=== PATIENT | female | born 1990 | race Hispanic/Latino ===

== ENCOUNTER 2017-09-13 14:02 | Inpatient (IN) | payer SELFPAY ==
[2017-09-13] MEDS ORDERED: NA CHLORIDE 0.9% 1,000 ML ONE ×3 (15:19→18:16)
[2017-09-13] MEDS ORDERED: ONDANSETRON 4 MG/2 ML VIAL ONE ×2 (15:19→18:30)
[2017-09-13] MEDS ORDERED: FAMOTIDINE 20 MG/2 ML VIAL IV ONE (15:19)
[2017-09-13 15:25] LABS: Urine Bacteria <20 /HPF (<20); Urine RBC <5 /HPF (NONE SEEN)
[2017-09-13 15:26] LABS: Urine Culture Reflex Order NOT NEEDED
[2017-09-13 16:42] LABS: Absolute Lymphocytes (CBC) 1.2 K/uL (0.7-4.9); Absolute Monocytes 1.1 K/uL (0.1-1.3); Absolute Neutrophil 11.1 K/uL (1.8-8.0); Basophils % 0.6 % (0-1.3); Hematocrit 40.1 % (36.0-45.0); Lymphocytes % 8.7 % (15.3-44.8); MCH 29.4 pg (27.0-35.0); MCV 92.8 fL (80-100); MPV 9.3 fL (7.6-11.3); Monocytes % 8.1 % (3.3-12.3); RBC Red Blood Cell Count 4.33 M/uL (3.86-4.86)
[2017-09-13 16:53] LABS: Lipase 24 U/L (22-51)
[2017-09-13 16:55] LABS: Glucose Level 614 mg/dL (65-120); Potassium 5.2 mEq/L (3.6-5.0); Sodium Level 125 mEq/L (135-145)
[2017-09-13 16:59] LABS: ALT/SGPT 28 IU/L (10-60); AST/SGOT 27 IU/L (10-42); Albumin 3.4 g/dL (3.2-5.5); Alkaline Phosphatase 92 IU/L (42-121); Amylase Level 52 U/L (28-100); BUN Blood Urea Nitrogen 20 mg/dL (6-20); Bilirubin Direct 0.1 mg/dL (0-0.2); Bilirubin Total 2.2 mg/dL (0.3-1.2); Protein, Total 7.2 g/dL (6.0-8.3)
[2017-09-13 17:03] LABS: Bicarbonate 8 mEq/L (21-31)
[2017-09-13] MEDS ORDERED: INSULIN -REGULAR HUMAN 50 UNIT/0.5 ML ML ONE (17:21)
[2017-09-13 17:22] LABS: Urine Blood NEGATIVE (NEG); Urine Glucose 2+ (NEG); Urine Protein NEGATIVE (NEG)
[2017-09-13 17:38] LABS: Arterial Blood Carboxyhemoglob 0.8 % (0-1.5); Blood Gas Oxyhemoglobin 94.7 % (94-97); Blood O2 Saturation 96.6 % (92-98.5)
[2017-09-13] MEDS ORDERED: INSULIN -REGULAR HUMAN 100 UNIT in NA CHLORIDE 0.9% 100 ML IV SCH (18:00)
[2017-09-13] MEDS ORDERED: Morphine 2 MG/2 ML SYR ONE (18:16)
--- NOTE | 2017-09-13 18:20 | RAD REPORT ---
EXAM DESCRIPTION: Shaina Single View09/13/2017 6:05 pm CLINICAL HISTORY: Chest pain COMPARISON: July 2016 FINDINGS: The lungs appear clear of acute infiltrate. The heart is normal size IMPRESSION: No acute abnormalities displayed
[2017-09-13] MEDS ORDERED: ONDANSETRON 4 MG/2 ML VIAL IV PRN (18:23)
[2017-09-13] MEDS ORDERED: NA CHLORIDE 0.9% 1,000 ML IV ONE (18:23)
--- NOTE | 2017-09-13 18:58 | EDPHYS ---
Physician Documentation [facility] Name: Kristan Townsend Age: 27 yrs Sex: Female : 1990 Arrival Date: 09/13/2017 Time: 14:06 Bed External Waiting Private MD: Kyle Welch ED Physician Gerson Rosa HPI: 09/13 15:10 This 27 yrs old Female presents to ER via Ambulatory with complaints of cp Vomiting, Shortness Of Breath. 15:10 The patient presents to the emergency department with vomiting, that is intermittent, cp described as bilious. Onset: The symptoms/episode began/occurred this morning. 15:10 Possible causes: elevated blood glucose. cp 15:10 Associated signs and symptoms: Pertinent positives: abdominal pain, nausea, vomiting, cp Pertinent negatives: constipation, diarrhea, dysuria, fever, GI bleeding, active vomiting. 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 - Social history:: Smoking status: Patient/guardian denies using tobacco. - Ebola Screening: : Patient negative for fever greater than or equal to 101.5 degrees Fahrenheit, and additional compatible Ebola Virus Disease symptoms Patient denies exposure to infectious person Patient denies travel to an Ebola-affected area in the 21 days before illness onset No symptoms or risks identified at this time. ROS: 15:15 Constitutional: Negative for body aches, chills, fever, poor PO intake. cp 15:15 Eyes: Negative for injury, pain, redness, and discharge. cp 15:15 ENT: Negative for drainage from ear(s), ear pain, sore throat, difficulty swallowing, difficulty handling secretions. Exam: 15:22 Constitutional: The patient appears in no acute distress, alert, awake, cp non-diaphoretic, non-toxic, well developed, well nourished. 15:22 Head/Face: Normocephalic, atraumatic. Eyes: Pupils equal round and reactive to light, cp extra-ocular motions intact. Lids and lashes normal. Conjunctiva and sclera are non-icteric and not injected. Cornea within normal limits. Periorbital areas with no swelling, redness, or edema. ENT: Nares patent. No nasal discharge, no septal abnormalities noted. Tympanic membranes are normal and external auditory canals are clear. Oropharynx with no redness, swelling, or masses, exudates, or evidence of obstruction, uvula midline. Mucous membranes moist. Neck: Trachea midline, no thyromegaly or masses palpated, and no cervical lymphadenopathy. Supple, full range of motion without nuchal rigidity, or vertebral point tenderness. No Meningismus. 15:22 Chest/axilla: Inspection: normal, Palpation: is normal, no crepitus, no tenderness. 15:22 Cardiovascular: Rate: tachycardic, Rhythm: regular, Pulses: Pulses are 2+ in right radial artery and left radial artery. Edema: is not appreciated, JVD: is not appreciated. 15:22 Respiratory: the patient does not display signs of respiratory distress, Respirations: normal, no use of accessory muscles, no retractions, no splinting, no tachypnea, labored breathing, is not present, Breath sounds: are clear throughout, no decreased breath sounds, no stridor, no wheezing. 15:22 Abdomen/GI: Inspection: abdomen appears normal, Bowel sounds: active, all quadrants, Palpation: soft, in all quadrants, mild abdominal tenderness, in the epigastric area, rebound tenderness, is not appreciated, voluntary guarding, is elicited in the epigastric area, involuntary guarding, is not appreciated. 15:22 Back: pain, is absent, ROM is normal, CVA tenderness, is absent. 15:22 Skin: cellulitis, is not appreciated, no rash present. 15:22 Neuro: Orientation: to person, place \T\ time. Mentation: lucid, able to follow commands, Cerebellar function: is grossly normal, Motor: moves all fours, strength is normal, Sensation: is normal. 15:28 ECG was reviewed by the Attending Physician. Vital Signs: 14:44 BP 122 / 65; Pulse 118; Resp 20; Temp 98.1; Pulse Ox 100% on R/A; Weight 61.23 kg; aj Height 5 ft. 4 in. (162.56 cm); 17:38 BP 123 / 63; Pulse 120; Resp 19 S; Pulse Ox 100% on R/A; Pain 6/10; sg 18:20 BP 121 / 70; Pulse 110; Resp 17 S; Pulse Ox 99% on R/A; Pain 6/10; sg 19:56 BP 118 / 70; Pulse 115; Resp 21; Pulse Ox 100% ; rv 20:35 BP 118 / 74; Pulse 119; Resp 18; Pulse Ox 100% on R/A; Pain 0/10; ao 14:44 Body Mass Index 23.17 (61.23 kg, 162.56 cm) aj MDM: 14:52 Patient medically screened. cp 18:05 Data reviewed: vital signs, nurses notes, lab test result(s), EKG. cp 18:05 Response to treatment: the patient's symptoms have mildly improved after treatment. cp 09/13 15:12 Order name: Amylase, Serum; Complete Time: 17:13 cp 09/13 15:12 Order name: Basic Metabolic Panel; Complete Time: 17:13 cp 09/13 17:43 Interpretation: Normal except: CRE 1.06; GFR 63; NA 125; K 5.2; CL 94; CO2 8; GLUC 614. cp 09/13 15:12 Order name: CBC with Diff; Complete Time: 17:13 cp 09/13 17:24 Interpretation: Normal except: WBC 13.5; MCV 92.8; MCHC 31.7; KEVIN% 82.6; LYM% 8.7; NEUT cp A 11.1. 09/13 15:12 Order name: Hepatic Function; Complete Time: 17:13 cp 09/13 17:24 Interpretation: Normal except: BILIT 2.2; GLOB 3.8; A/G 0.9. cp 06/ 15:12 Order name: Lipase; Complete Time: 17:13 cp 09/13 15:12 Order name: Urine Microscopic Only; Complete Time: 17:13 cp 09/13 15:13 Order name: Ketone, Serum; Complete Time: 17:13 cp 09/13 15:13 Order name: Magnesium; Complete Time: 17:13 cp 09/13 15:21 Order name: Urine Dipstick--Ancillary (enter results); Complete Time: 17:23 bd 09/13 17:24 Interpretation: UGLUC 2+; UKET 4+. cp / 15:21 Order name: Urine --Ancillary (enter results); Complete Time: 17:23 bd 09/13 17:17 Order name: ABG; Complete Time: 18:03 cp 09/13 18:03 Interpretation: Normal except: ABGPH 7.15; ABGPCO2 18.9; ABGPO2 124.0; ABGHCO3 6.3. cp 09/13 18:26 Order name: Basic Metabolic Panel EDMS 09/13 17:27 Order name: XRAY Chest (1 view); Complete Time: 18:57 cp 09/13 18:57 Interpretation: Report review. cp 09/13 18:26 Order name: Basic Metabolic Panel EDMS 09/13 18:26 Order name: Basic Metabolic Panel EDMS 09/13 18:26 Order name: CBC with Automated Diff EDMS 09/13 18:26 Order name: CBC with Automated Diff EDMS 09/13 18:27 Order name: Osmolality, Serum EDMS 09/13 18:27 Order name: ABG Arterial Blood Gas EDMS 09/13 18:27 Order name: ABG Arterial Blood Gas EDMS 09/13 18:27 Order name: CBC with Automated Diff EDMS 09/13 18:27 Order name: CBC with Automated Diff EDMS 09/13 20:16 Order name: Glucose, Ancillary Testing EDMS 09/13 20:16 Order name: Glucose, Ancillary Testing EDMS 09/13 15:12 Order name: EKG; Complete Time: 15:12 cp 09/13 15:12 Order name: EKG - Nurse/Tech; Complete Time: 19:07 cp 09/13 15:12 Order name: Urine Test (obtain specimen); Complete Time: 15:18 cp 09/13 15:12 Order name: IV Saline Lock; Complete Time: 16:36 cp 09/13 15:12 Order name: Labs collected and sent; Complete Time: 15:19 cp 09/13 15:12 Order name: Urine Dipstick-Ancillary (obtain specimen); Complete Time: 15:19 cp 09/13 18:26 Order name: CONS Diabetic Education Consul EDMS 09/13 18:26 Order name: CONS Pharmacy Consult EDMS 09/13 18:26 Order name: NPO EDMS EC:28 Rate is 106 beats/min. Rhythm is regular. NV interval is normal. QRS interval is cp normal. QT interval is normal. No ST changes noted. Interpreted by me. Reviewed by me. Administered Medications: 16:10 Drug: Pepcid 20 mg Route: IVP; Site: right jugular; sg 16:10 Drug: Zofran 4 mg Route: IVP; Site: right jugular; sg 16:36 Drug: NS 0.9% 1000 ml Route: IV; Rate: 1 bolus; Site: right jugular; sg 17:29 Drug: Insulin Regular Human 10 units {Co-Signature: francisco javier (Dian Samuel RN).} Route: sg IVP; Site: right jugular; 18:00 Follow up: Response: No adverse reaction sg 17:29 Drug: NS 0.9% 1000 ml Route: IV; Rate: 1 bolus; Site: right jugular; sg 21:48 Follow up: IV Status: Infusion continued upon admission ao 18:23 Drug: morphine 2 mg Route: IVP; Site: right jugular; sg 19:00 Follow up: Response: No adverse reaction; Pain is decreased sg 18:30 Drug: NS 0.9% 1000 ml Route: IV; Rate: 150 ml/hr; Site: right jugular; sg 21:49 Follow up: IV Status: Infusion continued upon admission ao 18:45 Drug: Insulin Drip - (Insulin Regular Human 100 units, NS 0.9% 100 ml) {Co-Signature: delores mcintyre (Dian Samuel RN).} Route: IV; Rate: 6 units/hr; Site: right jugular; 21:50 Follow up: IV Status: Infusion continued upon admission ao Point of Care Testing: Blood Glucose: 14:44 Blood Glucose: 481 mg/dL; aj 18:30 Blood Glucose: 477 mg/dL; sg 20:15 Blood Glucose: 406 mg/dL; rv Ranges: Critical Glucose Levels:Adult <50 mg/dl or >400 mg/dl <40 mg/dl or >180 mg/dl Disposition: 09/13/17 18:57 Hospitalization ordered by Jaylyn Pagan for Inpatient Admission. Preliminary diagnosis is Type 1 diabetes mellitus with ketoacidosis. - Bed requested for Intensive Care Unit. - Status is Inpatient Admission. ao - Condition is Guarded. - Problem is an acute exacerbation. - Symptoms have improved. UTI on Admission? No Addendum: 09/15/2017 13:28 Co-signature as Attending Physician, Gerson Rosa MD. g s Signatures: Dispatcher [employer] [facility] Enma Thompson RN Ernesto Washington RN RN sg Myers, Amanda, RN RN aj Page, Corey, PA PA cp Issa Reese, RN Gerson Loya MD MD Dian Samuel RN sv Corrections: (The following items were deleted from the chart) 09/13 17:23 15:13 Creatinine for Radiology+C.LAB.BRZ ordered. [facility] 17:43 17:24 Normal except: CRE 1.06; GFR 63; NA 125; K 5.2; CL 94; CO2 8. [facility] 18:32 18:26 Basic Metabolic Panel ordered. [facility] 18:32 18:27 Test Serum, Qual[place] ordered. [facility] 19:23 18:57 Hospitalization Ordered by Jaylyn Pagan MD for Inpatient Admission. Preliminary diagnosis is Type 1 diabetes mellitus with ketoacidosis. Bed requested for Intensive Care Unit. Status is Inpatient Admission. Condition is Guarded. Problem is an acute exacerbation. Symptoms have improved. UTI on Admission? No. cp 19:26 19:23 09/13/2017 18:57 Hospitalization Ordered by Jaylyn Pagan MD for Inpatient kl Admission. Preliminary diagnosis is Type 1 diabetes mellitus with ketoacidosis. Bed requested for Intensive Care Unit. Status is Inpatient Admission. Condition is Guarded. Problem is an acute exacerbation. Symptoms have improved. UTI on Admission? No. kl 21:48 19:26 09/13/2017 18:57 Hospitalization Ordered by Jaylyn Pagan MD for Inpatient ao Admission. Preliminary diagnosis is Type 1 diabetes mellitus with ketoacidosis. Bed requested for Intensive Care Unit. Status is Inpatient Admission. Condition is Guarded. Problem is an acute exacerbation. Symptoms have improved. UTI on Admission? No. kl
--- NOTE | 2017-09-13 18:58 | ER ---
Nurse's Notes [facility] Name: Kristan Townsend Age: 27 yrs Sex: Female : 1990 Arrival Date: 09/13/2017 Time: 14:06 Bed External Waiting Private MD: Kyle Welch Diagnosis: Type 1 diabetes mellitus with ketoacidosis Presentation: 09/13 14:43 Presenting complaint: Patient states: Vomiting x 2 episodes with fatigue and SOB. aj Patient reports heartburn. Transition of care: patient was not received from another setting of care. Onset of symptoms was September 13, 2017. Risk Assessment: Do you want to hurt yourself or someone else? Patient reports no desire to harm self or others. Care prior to arrival: None. 14:43 Method Of Arrival: Ambulatory aj 14:43 Acuity: ALEX 3 aj 19:19 Initial Sepsis Screen: Does the patient meet any 2 criteria? HR > 90 bpm. No. Patient's ao initial sepsis screen is negative. Does the patient have a suspected source of infection? No. Patient's initial sepsis screen is negative. Triage Assessment: 14:44 General: Appears in no apparent distress. comfortable, Behavior is calm, cooperative, aj appropriate for age. Pain: Denies pain. Neuro: Level of Consciousness is awake, alert, obeys commands, Oriented to person, place, time, situation, Appropriate for age. Respiratory: Airway is patent Respiratory effort is even, unlabored, Respiratory pattern is regular, symmetrical. GI: Reports indigestion, nausea, vomiting. Derm: Skin is intact, is healthy with good turgor, Skin is pink, warm \T\ dry. normal. 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 - Social history:: Smoking status: Patient/guardian denies using tobacco. - Ebola Screening: : Patient negative for fever greater than or equal to 101.5 degrees Fahrenheit, and additional compatible Ebola Virus Disease symptoms Patient denies exposure to infectious person Patient denies travel to an Ebola-affected area in the 21 days before illness onset No symptoms or risks identified at this time. Screenin:10 Abuse screen: Denies threats or abuse. Denies injuries from another. Nutritional sg screening: No deficits noted. Tuberculosis screening: No symptoms or risk factors identified. Never had TB. Fall Risk None identified. Assessment: 15:10 General: Appears in no apparent distress. comfortable, slender, well groomed, well sg developed, well nourished, Behavior is calm, cooperative, appropriate for age. Pain: Complains of pain in epigastric area Pain does not radiate. Quality of pain is described as sharp, stabbing. Neuro: Level of Consciousness is Oriented to person, place, time, Modern Dancer are equal bilaterally Speech is normal, Facial symmetry appears normal. Cardiovascular: Heart tones S1 S2 present Capillary refill is brisk in bilateral fingers Patient's skin is warm and dry. Chest pain is denied. Respiratory: Airway is patent Respiratory effort is even, unlabored, Respiratory pattern is regular, symmetrical, Breath sounds are clear. GI: Abdomen is round non-distended, Bowel sounds Abd is soft X 4 quads. : No signs and/or symptoms were reported regarding the genitourinary system. EENT: No deficits noted. Derm: Skin is pink, warm \T\ dry. Musculoskeletal: No deficits noted. 19:21 General: Appears in no apparent distress. comfortable, Behavior is calm, cooperative, ao appropriate for age. Pain: Denies pain. Neuro: Level of Consciousness is awake, alert, obeys commands, Oriented to person, place, time, situation, Appropriate for age Modern Dancer are equal bilaterally Speech is normal, Facial symmetry appears normal. Cardiovascular: Denies chest pain, palpitations, shortness of breath, Heart tones S1 S2 present Capillary refill < 3 seconds Patient's skin is warm and dry. Respiratory: Airway is patent Respiratory effort is even, unlabored, Respiratory pattern is regular, symmetrical, Breath sounds are clear. GI: Abdomen is round non-distended, Bowel sounds present X 4 quads. : No signs and/or symptoms were reported regarding the genitourinary system. EENT: No signs and/or symptoms were reported regarding the EENT system. Derm: Skin is pink, warm \T\ dry. Skin temperature is warm. Musculoskeletal: Circulation, motion, and sensation intact. Range of motion: intact in all extremities. 20:36 Reassessment: Patient appears in no apparent distress at this time. Called report to ao ICU nurse. Patient to be taken to her room Patient denies pain at this time. Vital Signs: 14:44 BP 122 / 65; Pulse 118; Resp 20; Temp 98.1; Pulse Ox 100% on R/A; Weight 61.23 kg; aj Height 5 ft. 4 in. (162.56 cm); 17:38 BP 123 / 63; Pulse 120; Resp 19 S; Pulse Ox 100% on R/A; Pain 6/10; sg 18:20 BP 121 / 70; Pulse 110; Resp 17 S; Pulse Ox 99% on R/A; Pain 6/10; sg 19:56 BP 118 / 70; Pulse 115; Resp 21; Pulse Ox 100% ; rv 20:35 BP 118 / 74; Pulse 119; Resp 18; Pulse Ox 100% on R/A; Pain 0/10; ao 14:44 Body Mass Index 23.17 (61.23 kg, 162.56 cm) ED Course: 14:06 Patient arrived in ED. sb2 14:06 Kyle Welch DO is Private Physician. sb2 14:44 Triage completed. aj 14:44 Arm band placed on right wrist. Patient placed in an exam room. aj 14:49 Ernesto Gamble, GABRIELA is Primary Nurse. sg 14:51 Zach Maxwell PA is PHCP. cp 14:51 Gerson Rosa MD is Attending Physician. cp 15:28 EKG done, by technical marketing consultant. reviewed by Zach ESQUIVEL. 3 16:15 Missed attempt(s): 22 gauge in left forearm. Bleeding controlled, band aid applied, sv catheter tip intact. 16:20 Missed attempt(s): 24 gauge in right forearm. Bleeding controlled, band aid applied, sv catheter tip intact. 16:30 Initial lab(s) drawn, by ED staff, sent to lab. Inserted saline lock: 20 gauge in right sv EJ, using aseptic technique. ,using aseptic technique. done by Alexi ESQUIVEL Blood collected. 18:02 X-ray completed. Portable x-ray completed in exam room. Patient tolerated procedure kp1 well. 18:03 XRAY Chest (1 view) In Process Unspecified. EDMS 18:48 Jaylyn Pagan MD is Hospitalizing Provider. cp 19:20 Patient has correct armband on for positive identification. alarm security or surveillance monitor on. Pulse ao ox on. NIBP on. 21:46 No provider procedures requiring assistance completed. Patient admitted, IV remains in ao place. Administered Medications: 16:10 Drug: Pepcid 20 mg Route: IVP; Site: right jugular; sg 16:10 Drug: Zofran 4 mg Route: IVP; Site: right jugular; sg 16:36 Drug: NS 0.9% 1000 ml Route: IV; Rate: 1 bolus; Site: right jugular; sg 17:29 Drug: Insulin Regular Human 10 units {Co-Signature: francisco javier (Dian Samuel RN).} Route: sg IVP; Site: right jugular; 18:00 Follow up: Response: No adverse reaction sg 17:29 Drug: NS 0.9% 1000 ml Route: IV; Rate: 1 bolus; Site: right jugular; sg 21:48 Follow up: IV Status: Infusion continued upon admission ao 18:23 Drug: morphine 2 mg Route: IVP; Site: right jugular; sg 19:00 Follow up: Response: No adverse reaction; Pain is decreased sg 18:30 Drug: NS 0.9% 1000 ml Route: IV; Rate: 150 ml/hr; Site: right jugular; sg 21:49 Follow up: IV Status: Infusion continued upon admission ao 18:45 Drug: Insulin Drip - (Insulin Regular Human 100 units, NS 0.9% 100 ml) {Co-Signature: delores mcintyre (Dian Samuel RN).} Route: IV; Rate: 6 units/hr; Site: right jugular; 21:50 Follow up: IV Status: Infusion continued upon admission ao Point of Care Testing: Blood Glucose: 14:44 Blood Glucose: 481 mg/dL; aj 18:30 Blood Glucose: 477 mg/dL; sg 20:15 Blood Glucose: 406 mg/dL; rv Ranges: Outcome: 18:57 Decision to Hospitalize by Provider. cp 21:00 Admitted to ICU accompanied by nurse, room 1, Report called to GABRIELA Bermudez ao 21:00 Condition: stable 21:00 Instructed on the need for admit. 21:48 Patient left the ED. ao Signatures: Dispatcher [employer] Dian Silva, RN RN sv Mavis, Ernesto, RN RN Iveth Cruz, RN RN Zach Johnston PA PA cp Ortiz, Alex, RN RN Rowan Wong 1 Arpita Gonzalez 2 Melina Deshpande 3 Michele Jimenez, RN RN Dian Samuel RN sv
--- NOTE | 2017-09-13 19:46 | P.HP ---
Certification for Inpatient Patient admitted to: Inpatient With expected LOS: >2 Midnights Practitioner: I am a practitioner with admitting privileges, knowledge of patient current condition, hospital course, and medical plan of care. Services: Services provided to patient in accordance with Admission requirements found in Title 42 Section 412.3 of the Code of Federal Regulations Patient History Date of Service: 09/13/17 Reason for admission: DKA History of Present Illness: Ms Townsend is a 27 years old woman with history of diabetes mellitus type 1, who does not have physician follow up, just take her insulin from [facility] without change her dose for the last 3 years. She came to ED complaining of abdominal pain, localized in epigastric area, radiated to her chest, described as burning sensation, associated with nausea and vomiting. She has has dizziness and headache as well. Her symptoms started this morning. She denied any fever, chills, cough, or burning urination. In ER lab work was remarkable for hyperglycemia 614 mg/dl, CO2 8, PH 7.15, AG 19, electrolyte disturbance. Clinical and laboratory presentation consistent with DKA. She states that has not missed any of her insulin dose lately. Allergies NKDA Allergy (Uncoded 03/20/15 08:29) Unknown No Known All Allergy (Uncoded 11/27/16 01:51) Unknown No Known Allergie Allergy (Uncoded 08/09/16 02:19) Unknown Home Medications: Insulin Glulisine [Apidra] 0 unit SQ TID #0 ml 11/21/11 Insulin Glargine Human [Lantus*] 20 unit SQ BID 03/20/15 Amoxicillin Trihydrate [Amoxil] 500 mg PO TID #15 capsule 03/22/15 - Past Medical/Surgical History Diabetic: Yes -: DM 1 Past Surgical History: Reviewed- Non-Contributory - Family History Family History: Reviewed- Non-Contributory - Social History Smoking Status: Never smoker Alcohol use: No CD- Drugs: No Caffeine use: Yes Place of Residence: Home Review of Systems 10-point ROS is otherwise unremarkable Physical Examination - Physical Exam General: Alert, In no apparent distress HEENT: Atraumatic, PERRLA, Mucous membr. moist/pink, EOMI, Sclerae nonicteric Neck: Supple, 2+ carotid pulse no bruit, No LAD, Without JVD or thyroid abnormality Respiratory: Clear to auscultation bilaterally, Normal air movement Cardiovascular: Regular rate/rhythm, Normal S1 S2 Gastrointestinal: Normal bowel sounds, No tenderness Musculoskeletal: No tenderness Integumentary: No rashes Neurological: Normal speech, Normal strength at 5/5 x4 extr, Normal tone, Normal affect Lymphatics: No axilla or inguinal lymphadenopathy - Studies Laboratory Data (last 24 hrs) 09/13/17 18:25: Sodium Cancelled, Potassium Cancelled, BUN Cancelled, Creatinine Cancelled, Glucose Cancelled 09/13/17 16:25: WBC 13.5 H, Hgb 12.7, Hct 40.1, Plt Count 342 09/13/17 16:25: Sodium 125 L, Potassium 5.2 H, BUN 20, Creatinine 1.06 H, Glucose 614 H*, Magnesium 2.0, Total Bilirubin 2.2 H, AST 27, ALT 28, Alkaline Phosphatase 92, Amylase 52, Lipase 24 09/13/17 15:12: Creatinine Cancelled Assessment and Plan - Problems (Diagnosis) (1) Diabetes mellitus Current Visit: Yes Status: Acute Qualifiers: Diabetes mellitus type: type 1 Diabetes mellitus complication status: with ketoacidosis Diabetes mellitus complication detail: without coma Qualified Code(s): E10.10 - Type 1 diabetes mellitus with ketoacidosis without coma (2) DKA, type 1 Current Visit: Yes Status: Acute Qualifiers: Diabetes mellitus complication detail: without coma Qualified Code(s): E10.10 - Type 1 diabetes mellitus with ketoacidosis without coma - Plan The patient will be admitted to the hospital due to DKA. She already start fluid replacement, Insulin drip, replace electrolyte per protocol. Check HgbA1c. Continue serial BMP until AG close. - Advance Directives Does patient have a Living Will: No Does patient have a Durable POA for Healthcare: No - Code Status/Comfort Care Code Status Assessed: Yes Code Status: Full Code
[2017-09-13 21:59] VITALS: O2SAT 100
[2017-09-13] MEDS: NACHLORIDE 0.45% 1,000 ML IV SCH (22:11)
[2017-09-13 23:05] LABS: Potassium 4.4 mEq/L (3.6-5.0)
[2017-09-13] MEDS: D5 0.45 NS 1,000 ML IV SCH (23:50)
[2017-09-14] MEDS: NACHLORIDE 0.45% 1,000 ML IV SCH (01:40)
[2017-09-14 03:12] LABS: BUN Blood Urea Nitrogen 10 mg/dL (6-20); Bicarbonate 17 mEq/L (21-31); Glucose Level 171 mg/dL (65-120); Potassium 3.7 mEq/L (3.6-5.0); Sodium Level 136 mEq/L (135-145)
[2017-09-14 05:13] LABS: Absolute Lymphocytes (CBC) 2.8 K/uL (0.7-4.9); Absolute Monocytes 1.2 K/uL (0.1-1.3); Absolute Neutrophil 6.9 K/uL (1.8-8.0); Basophils % 0.7 % (0-1.3); Eosinophils % 0.8 % (0-4.4); Hematocrit 34.3 % (36.0-45.0); Lymphocytes % 25.3 % (15.3-44.8); MCV 90.6 fL (80-100); MPV 8.5 fL (7.6-11.3); Monocytes % 10.5 % (3.3-12.3); RBC Red Blood Cell Count 3.78 M/uL (3.86-4.86)
[2017-09-14 05:19] LABS: BUN Blood Urea Nitrogen 9 mg/dL (6-20); Bicarbonate 18 mEq/L (21-31); Glucose Level 182 mg/dL (65-120); Magnesium 1.9 mg/dL (1.8-2.5); Potassium 3.8 mEq/L (3.6-5.0); Sodium Level 138 mEq/L (135-145)
[2017-09-14 05:27] LABS: Arterial Blood Carboxyhemoglob 1.4 % (0-1.5); Blood Gas Oxyhemoglobin 95.4 % (94-97); Blood O2 Saturation 97.2 % (92-98.5)
[2017-09-14] MEDS ORDERED: KCL 20 MEQ/100 mL IVPB 20 MEQ/100 ML BAG IV SCH (06:00)
[2017-09-14] MEDS: D5 0.45 NS 1,000 ML IV SCH (06:07)
[2017-09-14] MEDS ORDERED: INSULIN 70/30 100 UNITS/ML SQ ONE (06:29)
--- NOTE | 2017-09-14 06:48 | EKG ---
Test Date: 2017-09-13 Test Time: 15:22:33 High Man: SALVATORE MEASUREMENT RESULTS: Intervals: Rate: 106 OK: 130 QRSD: 80 QT: 334 QTc: 443 [place]: P: 37 OK: 130 QRS: 90 T: 19 INTERPRETIVE STATEMENTS: Sinus tachycardia Rightward axis Borderline ECG Compared to ECG 08/08/2016 22:43:20 Sinus rhythm no longer present Electronically Signed On 09-14-17 06:47:34 CDT by Jose Mcclelland
[2017-09-14] MEDS ORDERED: INSULIN 70/30 100 UNITS/ML SQ SCH (07:30)
[2017-09-14] MEDS ORDERED: POTASSIUM 25 MEQ EFFERV TAB PO ONE (08:00)
[2017-09-14] MEDS ORDERED: GLUCAGON 1 MG/VIAL IM PRN ×3 (09:10→11:19)
[2017-09-14] MEDS ORDERED: D50W 25 GM/50 ML SYRINGE IV PRN ×3 (09:10→11:19)
[2017-09-14] MEDS: NA CHLORIDE 0.9% 1,000 ML IV SCH ×2 (09:14→17:04)
[2017-09-14] MEDS ORDERED: PNEUMOCOCCAL VACCINE 0.5 ML IMVAC ONE (10:00)
[2017-09-14] MEDS: INSULIN -REGULAR HUMAN 50 UNIT/0.5 ML ML SQ SCH ×3 (12:03→21:00)
--- NOTE | 2017-09-14 16:37 | PN ---
Subjective: Currently, she is lying in bed. She looks comfortable. She is off her insulin drip. She tolerated her diet well today. No fever, no chills overnight. No nausea or vomiting any more. No bowel movement. Glucose down to 214. Objective: Vital Signs: Blood pressure is 104/72, respiratory rate 17, pulse 97, temperature 98.3. General: She is alert, oriented x3. Does not look in any distress. HEENT: Atraumatic, normocephalic. PERRLA. Oral mucosa moist. Neck: Supple. No JVD. No carotid bruits. Chest: Clear to auscultation. Good air entry. Heart: Regular rate and rhythm. S1 and S2 normal. No gallop or murmur. Abdomen: Soft, nontender. No masses. No hepatosplenomegaly. Positive bowel sounds. Extremities: No clubbing, cyanosis, or edema. No calf tenderness. Neurologic: Grossly intact. Laboratory Data: Currently CBC was normal except for white blood cells 11.1, hemoglobin is 11.3, platelets 285. Chemistry within normal except for a chloride 115, carbon dioxide 18, anion gap at 5, glucose 181, calcium 7.1. Assessment And Plan: 1. Diabetic ketoacidosis, resolved. off insulin drip now, no blood cultures or urine culture done. I will proceed with that to rule out infection and patient hemoglobin A1c pending. 2. Diabetes mellitus. The patient is managing her diabetes. She is off insulin drip. I will switch her to insulin 70/30, 30 units twice a day and insulin sliding scale. Hemoglobin A1c also pending. She will need followup by indigent clinic to adjust her insulin dose. The patient understands it will be very dangerous to manage her DM on her own as she did for the last 3 years with [id number]-veonfex insulin. 3. We will transfer to the floor LADI/NERY Voice ID: [id number] Report ID: [id number] MTDNash
[2017-09-14] MEDS: INSULIN 70/30 100 UNITS/ML SQ SCH (17:03)
[2017-09-14 23:04] LABS: Urine Appearance CLEAR; Urine Bilirubin NEGATIVE (NEG); Urine Blood NEGATIVE (NEG); Urine Color YELLOW; Urine Glucose 1+ (NEG); Urine Protein NEGATIVE (NEG)
[2017-09-14 23:10] LABS: Urine Microscopic Reflex ORDER UMIC
[2017-09-14 23:32] LABS: Urine Bacteria 20-50 /HPF (<20); Urine Culture Reflex Order REFLEXED; Urine Mucus HEAVY /HPF (NONE SEEN); Urine RBC NONE SEEN /HPF (NONE SEEN)
[2017-09-15] MEDS: NA CHLORIDE 0.9% 1,000 ML IV SCH (03:49)
[2017-09-15 05:19] LABS: Absolute Lymphocytes (CBC) 2.3 K/uL (0.7-4.9); Absolute Monocytes 0.5 K/uL (0.1-1.3); Absolute Neutrophil 2.6 K/uL (1.8-8.0); Basophils % 0.7 % (0-1.3); Eosinophils % 1.8 % (0-4.4); Hematocrit 32.9 % (36.0-45.0); Lymphocytes % 41.8 % (15.3-44.8); MCH 30.3 pg (27.0-35.0); MCV 90.4 fL (80-100); MPV 8.6 fL (7.6-11.3); Monocytes % 8.4 % (3.3-12.3); RBC Red Blood Cell Count 3.64 M/uL (3.86-4.86)
[2017-09-15 05:53] LABS: BUN Blood Urea Nitrogen 8 mg/dL (6-20); Bicarbonate 22 mEq/L (21-31); Glucose Level 178 mg/dL (65-120); Magnesium 1.8 mg/dL (1.8-2.5); Potassium 3.7 mEq/L (3.6-5.0); Sodium Level 139 mEq/L (135-145)
[2017-09-15] MEDS ORDERED: MAGNESIUM SULFATE 1 gm IVPB 1 GM/100 ML BAG IV ONE (05:57)
[2017-09-15] MEDS ORDERED: POTASSIUM CL SA 10 MEQ TAB PO ONE (05:58)
[2017-09-15 06:24] VITALS: BMI 23.8
[2017-09-15] MEDS: INSULIN -REGULAR HUMAN 50 UNIT/0.5 ML ML SQ SCH ×2 (08:29→11:30)
[2017-09-15] MEDS: INSULIN 70/30 100 UNITS/ML SQ SCH (08:30)
[2017-09-15] MEDS ORDERED: POTASSIUM 25 MEQ EFFERV TAB PO ONE (10:00)
[2017-09-15 12:12] VITALS: BP 125/85; TEMP 98.3
--- NOTE | 2017-09-15 21:58 | DS ---
Date of Discharge: 09/15/2017 Discharge Diagnoses: 1.Diabetic ketoacidosis, resolved. 2.Uncontrolled diabetes mellitus. Consult: None. Procedure: Chest x-ray. History Of Present Illness: Please refer to admission note done by Dr. Henley on September 13. Hospital Course: Initially the patient presented with an abdominal pain with nausea and vomiting, di zziness and headache. In the ER she was evaluated and she found to have a glucose of 614 with electr olyte disturbance and anion gap of 19 and she was admitted for DKA. She was started on insulin drip until anion gap closed and then she was switched to subcutaneous insulin. She tolerated diet since y and her glucose has been around 170-150. The patient was taking insulin 70/30, 25 units twi ce a day. Also insulin lispro 10 units 3 times a day. So we increased her insulin 70/30 to 30 twice a day. I advised her to follow up tomorrow with primary care physician clinic in the morning. She will be given the phone number. The patient understand and she cannot self manage as she has been do ing for the last 3 years her diabetes by herself without medical supervision by the primary care phys catrina. She understands DKA can be lethal and she could , so I strongly encouraged the patient to see primary care physician to decide the exact amount of insulin she need to be on. Discharge Condition: Stable. Discharge Diet: 1800, ADA. Discharge Followup: With primary care physician in clinic tomorrow morning. Discharge Medication: Insulin 70/30, 30 units twice a day. She is using short-acting NovoLog on a s liding scale. Discharge Exam: Vital Signs: Blood pressure is 125/85, respiratory rate 18, pulse 76, temperature 9 8.3. General: The patient is alert and oriented x3. Does not look in any distress. HEENT: Atraumatic, normocephalic. PERRLA. Oral mucosa is moist. Neck: Supple. No JVD. No carotid bruits. Chest: Clear to auscultation. Good air entry. Heart: Regular rate rhythm S1, S2 normal. No gallop or murmur. Abdomen: Soft, nontender. No masses. No hepatosplenomegaly. Positive bowel sounds. Extremities: No clubbing, cyanosis, or edema. No calf tenderness. Neurologic: Grossly intact. MT/MODL Voice ID: [id number] Report ID: [id number]
[2017-09-16 17:28] LABS: A1c Component 1.42 mg/dL; Hemoglobin A1c 13.6 % (4-6.0)
== END 2017-09-15 13:08 | disposition home or self-care (01) | DRG 639 ==
LOC: ER 14:02 → ERHOLD 18:59 → 3RD-ICU 20:39 → 2ND 09-14 12:45
PROVIDERS: ADMIT Family Medicine; ATTEND Internal Medicine
DX: E10.10 Type 1 diabetes mellitus with ketoacidosis without coma (principal); E10.65 Type 1 diabetes mellitus with hyperglycemia; Z79.4 Long term (current) use of insulin
CPT/HCPCS: 36415; 71045; 80048; 80076; 81003; 81015; 81025; 82009; 82150; 82805; 82962; 83036; 83690; 83735; 83930; 85025; 87040; 87086; 87088; 93005; 96361; 96365; 96366; 96375; 99285; J2270; J2405; J3475; J7030

== ENCOUNTER 2018-01-06 05:53 | Inpatient (IN) | payer SELFPAY ==
[2018-01-06] MEDS ORDERED: NA CHLORIDE 0.9% 1,000 ML ONE (06:04)
[2018-01-06] MEDS ORDERED: ONDANSETRON 4 MG/2 ML VIAL ONE ×2 (06:32→08:52)
[2018-01-06 06:48] LABS: Absolute Monocytes 0.8 K/uL (0.1-1.3); Absolute Neutrophil 13.1 K/uL (1.8-8.0); Basophils % 0.9 % (0-1.3); Eosinophils % 0.3 % (0-4.4); Hematocrit 43.3 % (36.0-45.0); Lymphocytes % 12.6 % (15.3-44.8); MCV 93.6 fL (80-100); MPV 8.9 fL (7.6-11.3); Monocytes % 4.7 % (3.3-12.3); RBC Red Blood Cell Count 4.63 M/uL (3.86-4.86)
[2018-01-06] MEDS ORDERED: NA CHLORIDE 0.9% 2,000 ML ONE (06:52)
[2018-01-06 07:09] LABS: Potassium 4.4 mmol/L (3.5-5.1)
[2018-01-06 07:28] LABS: Arterial Blood Carboxyhemoglob 1.2 % (0-1.5)
--- NOTE | 2018-01-06 07:28 | ER ---
Nurse's Notes [facility] Name: Kristan Townsend Age: 27 yrs Sex: Female : 1990 Arrival Date: 01/06/2018 Time: 06:04 Bed 15 Private MD: Diagnosis: Type 1 diabetes mellitus with ketoacidosis Presentation: 01/06 06:11 Presenting complaint: EMS states: Pt complaining of hyperglycemic symptoms. BGL on jb4 scene was 438. Pt reports taking Novolog prior to arrival. Transition of care: patient was not received from another setting of care. Onset of symptoms was January 04, 2018. Risk Assessment: Do you want to hurt yourself or someone else? Patient reports no desire to harm self or others. Initial Sepsis Screen: Does the patient meet any 2 criteria? HR > 90 bpm. Yes Does the patient have a suspected source of infection? No. Patient's initial sepsis screen is negative. Care prior to arrival: Glucose check: 438. 06:11 Method Of Arrival: EMS: [facility] jb4 06:11 Acuity: ALEX 3 jb4 07:34 Acuity: ALEX 2 ph Triage Assessment: 06:14 General: Appears in no apparent distress. uncomfortable, Behavior is calm, cooperative, jb4 appropriate for age. Pain: Complains of pain in chest Pain does not radiate. Pain currently is 2 out of 10 on a pain scale. at worst was 10 out of 10 on a pain scale. Quality of pain is described as burning, Pain began 2-3 days ago. Is intermittent. EENT: No signs and/or symptoms were reported regarding the EENT system. Neuro: Level of Consciousness is awake, alert, obeys commands, Oriented to person, place, time, situation. Cardiovascular: Heart tones S1 S2 Patient's skin is warm and dry. Respiratory: Airway is patent Respiratory effort is even, unlabored, Respiratory pattern is regular, symmetrical, Breath sounds are clear bilaterally. GI: Abdomen is flat, non-distended, Reports nausea, vomiting. : No signs and/or symptoms were reported regarding the genitourinary system. Derm: Skin is intact, Skin is pink, warm \T\ dry. Musculoskeletal: Circulation, motion, and sensation intact. 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 - Social history:: Smoking status: Patient/guardian denies using tobacco, Patient uses alcohol, occasionally. - Ebola Screening: : No symptoms or risks identified at this time. Screenin:22 Abuse screen: Denies threats or abuse. Nutritional screening: No deficits noted. jb4 Tuberculosis screening: Fall Risk Secondary diagnosis (15 points) DM. IV access (20 points). Total Dixon Fall Scale indicates Low Risk Score (25-44 pts). Fall prevention measures have been instituted. Side Rails Up X 2 Placed close to Nursing Station Frequent Obs/Assesments occuring Family Present and informed to notify staff if they need to leave bedside. Assessment: 06:22 General: See triage assessment.. jb4 07:15 Reassessment: Patient appears in no apparent distress at this time. Patient and/or ph family updated on plan of care and expected duration. Pain level reassessed. Patient is alert, oriented x 3, equal unlabored respirations, skin warm/dry/pink. Pt states that nausea has improved after IV medication, awaiting lab results. 08:04 Reassessment: Patient appears in no apparent distress at this time. Patient and/or ph family updated on plan of care and expected duration. Pain level reassessed. Patient is alert, oriented x 3, equal unlabored respirations, skin warm/dry/pink. PT ambulated to restroom, gait steady,denies pain or nausea at this time. 08:48 Reassessment: Patient appears in no apparent distress at this time. Patient and/or ph family updated on plan of care and expected duration. Pain level reassessed. Patient is alert, oriented x 3, equal unlabored respirations, skin warm/dry/pink. Pt c/o nausea, ERP notified, see MAR. 10:00 Reassessment: Patient appears in no apparent distress at this time. Patient and/or ph family updated on plan of care and expected duration. Pain level reassessed. Patient is alert, oriented x 3, equal unlabored respirations, skin warm/dry/pink. Pt resting quietly, awaiting ICU bed. Vital Signs: 06:14 BP 125 / 83; Pulse 122; Resp 18; Temp 98.7; Pulse Ox 98% on R/A; Weight 61.69 kg (R); jb4 Height 5 ft. 4 in. (162.56 cm) (R); Pain 2/10; 07:34 BP 117 / 82; Pulse 132; Resp 22; Pulse Ox 98% on R/A; ph 08:05 BP 115 / 66; Pulse 127; Resp 22; Pulse Ox 98% on R/A; ph 08:50 BP 129 / 71; Pulse 127; Resp 24; Pulse Ox 100% on R/A; ph 10:20 BP 139 / 79; Pulse 128; Resp 22; Pulse Ox 98% on R/A; ph 12:30 BP 118 / 68; Pulse 126; Resp 16; Pulse Ox 100% on R/A; mh5 06:14 Body Mass Index 23.34 (61.69 kg, 162.56 cm) jb4 Vitals: 08:05 Cardiac Rhythm Assessment Sinus tach. ph ED Course: 06:04 Patient arrived in ED. kb 06:04 [facility]-C [facility]. kb 06:04 Abelino Salgado MD is Attending Physician. kb 06:06 Justen Foster, GABRIELA is Primary Nurse. jb4 06:06 Missed attempt(s): 20 gauge in left antecubital area. Bleeding controlled, band aid jd3 applied, catheter tip intact. 06:10 Missed attempt(s): 22 gauge in left forearm. lp1 06:13 Triage completed. jb4 06:14 Arm band placed on right wrist. jb4 06:22 Patient has correct armband on for positive identification. Bed in low position. Call jb4 light in reach. Side rails up X 1. Pulse ox on. NIBP on. 06:25 Inserted saline lock: 20 gauge in right upper arm, using aseptic technique. placed by fadi Ward RN. 07:27 Marva Chavarria MD is Hospitalizing Provider. kb 08:30 Missed attempt(s): 22 gauge in left antecubital area. Bleeding controlled, band aid ph applied, catheter tip intact. Inserted saline lock: 22 gauge in left antecubital area, using aseptic technique. 08:51 No provider procedures requiring assistance completed. Patient admitted, IV remains in ph place. Administered Medications: 06:31 Drug: Zofran 4 mg Route: IVP; Site: right upper arm; jb4 08:53 Follow up: Response: No adverse reaction ph 06:46 Drug: NS 0.9% 1000 ml Route: IV; Rate: 1000 ml; Site: right upper arm; jb4 08:00 Follow up: Response: No adverse reaction; IV Status: Completed infusion ph 07:03 Drug: NS 0.9% 1000 ml Route: IV; Rate: 1000 ml; Site: right upper arm; jb4 10:08 Follow up: Response: No adverse reaction; IV Status: Completed infusion ph 07:34 Drug: morphine 2 mg Route: IVP; Site: right antecubital; ph 08:54 Follow up: Response: No adverse reaction; Pain is decreased ph 08:02 Drug: Insulin Drip - (Insulin Regular Human 100 units, NS 0.9% 100 ml) {Co-Signature: lamont choi (Arya Hurley RN).} Route: IV; Rate: calculated rate; Site: right antecubital; 10:08 Follow up: IV SiteChange: left antecubital; IV SiteChange Reason: Infiltration ph 10:09 Follow up: IV Status: Infusion continued upon admission ph 08:50 Drug: Zofran 4 mg Route: IVP; Site: left antecubital; ph 10:09 Follow up: Response: No adverse reaction; Nausea is decreased ph 10:00 Drug: NS 0.9% 1000 ml Route: IV; Rate: 125 ml/hr; Site: left antecubital; ph 10:08 Follow up: Response: No adverse reaction; IV Status: Infusion continued upon admission ph Point of Care Testing: Blood Glucose: 06:14 Blood Glucose: 472 mg/dL; jb4 07:58 Blood Glucose: 479 mg/dL; hj 09:38 Blood Glucose: 376 mg/dL; ph 10:35 Blood Glucose: 293 mg/dL; mh5 12:29 Blood Glucose: 144 mg/dL; mh5 Ranges: Outcome: 07:27 Decision to Hospitalize by Provider. kb 10:45 Admitted to ER Hold. Please see [facility] for further documentation. ph 10:45 Condition: stable 13:37 Patient left the ED. ph Signatures: Lili Rogers, ASSEMBLY MACHINE OFFBEARER-C ASSEMBLY MACHINE OFFBEARER-CkAngella Dasilva, RN RN lp1 Drea Mcgowan RN RN ph Arya Hurley, GABRIELA OCHOA hj Justen Foster RN RN jb4 Martinez, Maria [facility] Rony Rai RN RN jd3 Arya choi Corrections: (The following items were deleted from the chart) 06:14 06:11 Care prior to arrival: None. jb4 jb4 06:47 06:22 potline monitor on. Pulse ox on. NIBP on. jb4 jb4 10:43 10:29 Blood Glucose: Blood Glucose Nibepyf=955 mg/dL. ph ph
--- NOTE | 2018-01-06 07:28 | EDPHYS ---
Physician Documentation [facility] Name: Kristan Townsend Age: 27 yrs Sex: Female : 1990 Arrival Date: 01/06/2018 Time: 06:04 Bed 15 Private MD: ED Physician Abelino Salgado HPI: 01/06 06:25 This 27 yrs old Female presents to ER via EMS with complaints of hyperglycemia.kb 06:25 The patient or guardian reports hyperglycemia, that was potentially precipitated by no kb particular event, with the patient's symptoms witnessed by no one, Treatment prior to arrival includes: taking additional insulin. Onset: The symptoms/episode began/occurred 2 day(s) ago. Associated signs and symptoms: Pertinent positives: nausea, polydipsia, vomiting, Pertinent negatives: anorexia, constipation, decreased urine output, diaphoresis, diarrhea, dry skin, hair loss, ketones in urine, polyphagia, polyuria, seizure activity, skin flushing, urinary incontinence. Current symptoms: In the emergency department the patient's symptoms are unchanged from the initial presentation. The patient has experienced similar episodes in the past. The patient has not recently seen a physician. Pt reports hyperglycemia, nausea, vomiting, chest pain and shortness of breath since Saturday. States the last reading she got on her home monitor was in the 300s yesterday at noon and it has just read "HIGH" since then. . 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 - Social history:: Smoking status: Patient/guardian denies using tobacco, Patient uses alcohol, occasionally. - Ebola Screening: : No symptoms or risks identified at this time. ROS: 06:24 Constitutional: Negative for fever, chills, and weight loss, Back: Negative for injury kb and pain, : Negative for injury, bleeding, discharge, and swelling, MS/Extremity: Negative for injury and deformity, Skin: Negative for injury, rash, and discoloration, Neuro: Negative for headache, weakness, numbness, tingling, and seizure. 06:24 Cardiovascular: Positive for chest pain, Negative for edema, orthopnea, palpitations, paroxysmal nocturnal dyspnea. 06:24 Respiratory: Positive for shortness of breath. 06:24 Abdomen/GI: Positive for nausea and vomiting, Negative for abdominal pain, diarrhea, constipation, abdominal cramps, abdominal distension, anorexia. Exam: 06:25 Constitutional: This is a well developed, well nourished patient who is awake, alert, kb and in no acute distress. Head/Face: Normocephalic, atraumatic. Chest/axilla: Normal chest wall appearance and motion. Nontender with no deformity. No lesions are appreciated. Cardiovascular: Regular rate and rhythm with a normal S1 and S2. No gallops, murmurs, or rubs. Normal PMI, no JVD. No pulse deficits. Respiratory: Lungs have equal breath sounds bilaterally, clear to auscultation and percussion. No rales, rhonchi or wheezes noted. No increased work of breathing, no retractions or nasal flaring. Abdomen/GI: Soft, non-tender, with normal bowel sounds. No distension or tympany. No guarding or rebound. No evidence of tenderness throughout. Skin: Warm, dry with normal turgor. Normal color with no rashes, no lesions, and no evidence of cellulitis. MS/ Extremity: Pulses equal, no cyanosis. Neurovascular intact. Full, normal range of motion. Neuro: Awake and alert, GCS 15, oriented to person, place, time, and situation. Cranial nerves II-XII grossly intact. Motor strength 5/5 in all extremities. Sensory grossly intact. Cerebellar exam normal. Normal gait. Vital Signs: 06:14 BP 125 / 83; Pulse 122; Resp 18; Temp 98.7; Pulse Ox 98% on R/A; Weight 61.69 kg (R); jb4 Height 5 ft. 4 in. (162.56 cm) (R); Pain 2/10; 07:34 BP 117 / 82; Pulse 132; Resp 22; Pulse Ox 98% on R/A; ph 08:05 BP 115 / 66; Pulse 127; Resp 22; Pulse Ox 98% on R/A; ph 08:50 BP 129 / 71; Pulse 127; Resp 24; Pulse Ox 100% on R/A; ph 10:20 BP 139 / 79; Pulse 128; Resp 22; Pulse Ox 98% on R/A; ph 12:30 BP 118 / 68; Pulse 126; Resp 16; Pulse Ox 100% on R/A; mh5 06:14 Body Mass Index 23.34 (61.69 kg, 162.56 cm) jb4 MDM: 06:04 Patient medically screened. kb 06:23 Data reviewed: vital signs, nurses notes. Data interpreted: Pulse oximetry: on room air kb is 98 %. Interpretation: normal. 07:15 Counseling: I had a detailed discussion with the patient and/or guardian regarding: the kb historical points, exam findings, and any diagnostic results supporting the discharge/admit diagnosis, lab results, radiology results, the need for further work-up and treatment in the hospital. 01/06 06:05 Order name: CBC with Diff; Complete Time: 07:01 kb 01/06 06:05 Order name: Basic Metabolic Panel; Complete Time: 07:14 kb 01/06 06:54 Order name: Urine Dipstick--Ancillary (enter results); Complete Time: 08:08 mw2 01/06 06:54 Order name: Urine --Ancillary (enter results); Complete Time: 08:08 mw2 01/06 07:10 Order name: ABG; Complete Time: 07:52 kb 01/06 07:14 Order name: Acetone, Serum; Complete Time: 07:52 kb 01/06 11:01 Order name: Glucose, Ancillary Testing; Complete Time: 11:05 EDMS 01/06 11:01 Order name: Glucose, Ancillary Testing; Complete Time: 11:05 EDMS 01/06 11:01 Order name: Glucose, Ancillary Testing; Complete Time: 11:05 EDMS 01/06 11:01 Order name: Glucose, Ancillary Testing; Complete Time: 11:05 EDMS 01/06 11:55 Order name: Basic Metabolic Panel; Complete Time: 12:06 EDMS 01/06 12:02 Order name: Acetone Level; Complete Time: 12:06 EDMS 01/06 06:05 Order name: IV Start; Complete Time: 06:25 kb 01/06 06:05 Order name: EKG; Complete Time: 06:06 kb 01/06 06:05 Order name: EKG - Nurse/Tech; Complete Time: 06:10 kb 01/06 06:05 Order name: Blood Glucose Level; Complete Time: 06:09 kb 01/06 06:05 Order name: Urine Test (obtain specimen); Complete Time: 07:03 kb 01/06 06:05 Order name: Urine Dipstick-Ancillary (obtain specimen); Complete Time: 07:03 kb 01/06 07:23 Order name: NPO; Complete Time: 07:24 kb Administered Medications: 06:31 Drug: Zofran 4 mg Route: IVP; Site: right upper arm; jb4 08:53 Follow up: Response: No adverse reaction ph 06:46 Drug: NS 0.9% 1000 ml Route: IV; Rate: 1000 ml; Site: right upper arm; jb4 08:00 Follow up: Response: No adverse reaction; IV Status: Completed infusion ph 07:03 Drug: NS 0.9% 1000 ml Route: IV; Rate: 1000 ml; Site: right upper arm; jb4 10:08 Follow up: Response: No adverse reaction; IV Status: Completed infusion ph 07:34 Drug: morphine 2 mg Route: IVP; Site: right antecubital; ph 08:54 Follow up: Response: No adverse reaction; Pain is decreased ph 08:02 Drug: Insulin Drip - (Insulin Regular Human 100 units, NS 0.9% 100 ml) {Co-Signature: ph hj (Arya Hurley RN).} Route: IV; Rate: calculated rate; Site: right antecubital; 10:08 Follow up: IV SiteChange: left antecubital; IV SiteChange Reason: Infiltration ph 10:09 Follow up: IV Status: Infusion continued upon admission ph 08:50 Drug: Zofran 4 mg Route: IVP; Site: left antecubital; ph 10:09 Follow up: Response: No adverse reaction; Nausea is decreased ph 10:00 Drug: NS 0.9% 1000 ml Route: IV; Rate: 125 ml/hr; Site: left antecubital; ph 10:08 Follow up: Response: No adverse reaction; IV Status: Infusion continued upon admission ph Point of Care Testing: Blood Glucose: 06:14 Blood Glucose: 472 mg/dL; jb4 07:58 Blood Glucose: 479 mg/dL; hj 09:38 Blood Glucose: 376 mg/dL; ph 10:35 Blood Glucose: 293 mg/dL; mh5 12:29 Blood Glucose: 144 mg/dL; mh5 Ranges: Critical Glucose Levels:Adult <50 mg/dl or >400 mg/dl <40 mg/dl or >180 mg/dl Disposition: 01/06/18 07:27 Hospitalization ordered by Marva Chavarria for Inpatient Admission. Preliminary diagnosis is Type 1 diabetes mellitus with ketoacidosis. - Bed requested for Intensive Care Unit. - Status is Inpatient Admission. ph - Condition is Stable. - Problem is new. - Symptoms are unchanged. UTI on Admission? No Addendum: 01/08/2018 08:03 Co-signature as Attending Physician, Abelino Salgado MD. r n Signatures: Dispatcher [employer] EDMS Lili Rogers, NETWORK DESIGNER-C NETWORK DESIGNER-Ckb Vivi Ken Roman, MD MD rn Hall, Patricia, RN RN Justen Foster RN RN [facility] Arya Hurley RN Corrections: (The following items were deleted from the chart) 01/06 12:39 07:27 Hospitalization Ordered by Marva Chavarria MD for Inpatient Admission. Preliminary bd diagnosis is Type 1 diabetes mellitus with ketoacidosis. Bed requested for Intensive Care Unit. Status is Inpatient Admission. Condition is Stable. Problem is new. Symptoms are unchanged. UTI on Admission? No. kb 13:37 12:39 01/06/2018 07:27 Hospitalization Ordered by Marva Chavarria MD for Inpatient ph Admission. Preliminary diagnosis is Type 1 diabetes mellitus with ketoacidosis. Bed requested for Intensive Care Unit. Status is Inpatient Admission. Condition is Stable. Problem is new. Symptoms are unchanged. UTI on Admission? No. bd
[2018-01-06] MEDS ORDERED: MORPHINE 4 MG/ML SYR ONE (07:38)
[2018-01-06] MEDS ORDERED: INSULIN -REGULAR HUMAN 100 UNIT in NA CHLORIDE 0.9% 100 ML IV SCH (08:00)
[2018-01-06 08:05] LABS: Urine Glucose 2+ (NEG); Urine Specific Gravity 1.015 (1.005-1.030)
--- NOTE | 2018-01-06 08:05 | EKG ---
Test Date: 2018-01-06 Test Time: 05:56:57 Weed Cooking Operator: BRIANA MEASUREMENT RESULTS: Intervals: Rate: 118 FL: 126 QRSD: 78 QT: 310 QTc: 434 [place]: P: 52 FL: 126 QRS: 86 T: 18 INTERPRETIVE STATEMENTS: Sinus tachycardia Otherwise normal ECG Compared to ECG 09/13/2017 15:22:33 Right-axis deviation no longer present Electronically Signed On 01-06-18 08:04:42 CDT by Jose Mcclelland
--- NOTE | 2018-01-06 08:05 | EKG ---
Test Date: 2018-01-06 Test Time: 06:03:15 Float Nurse: BERTOB MEASUREMENT RESULTS: Intervals: Rate: 117 [place]: 122 QRSD: 80 QT: 314 QTc: 438 [place]: P: 55 [place]: 122 QRS: 89 T: 24 INTERPRETIVE STATEMENTS: Sinus tachycardia Otherwise normal ECG Compared to ECG 01/06/2018 05:56:57 No significant changes Electronically Signed On 01-06-18 08:04:39 CDT by Jose Mcclelland
[2018-01-06 08:06] LABS: Urine Blood TRACE (NEG); Urine Protein 1+ (NEG); Urine pH 5.5 (5.0-7.0)
[2018-01-06] MEDS ORDERED: ONDANSETRON 4 MG/2 ML VIAL IV PRN (11:03)
[2018-01-06] MEDS ORDERED: NACHLORIDE 0.45% 1,000 ML IV SCH (11:03)
[2018-01-06] MEDS: ENOXAPARIN 40 MG/0.4 ML SQ SCH (11:03)
[2018-01-06 11:51] LABS: BUN Blood Urea Nitrogen 14 mg/dL (7-18); Glucose Level 260 mg/dL (74-106); Potassium 4.1 mmol/L (3.5-5.1); Sodium Level 142 mmol/L (136-145)
[2018-01-06 11:54] LABS: Bicarbonate 9 mmol/L (21-32)
[2018-01-06] MEDS: D5 0.45 NS 1,000 ML IV SCH ×2 (12:45→18:42)
[2018-01-06] MEDS ORDERED: D5 0.45 NS 1,000 ML IV ONE (13:01)
[2018-01-06] MEDS ORDERED: ENOXAPARIN 40 MG/0.4 ML SQ ONE (13:01)
[2018-01-06 13:48] VITALS: O2SAT 100
--- NOTE | 2018-01-06 14:03 | P.HP ---
Certification for Inpatient Patient admitted to: Inpatient With expected LOS: >2 Midnights Patient will require the following post-hospital care: None Practitioner: I am a practitioner with admitting privileges, knowledge of patient current condition, hospital course, and medical plan of care. Services: Services provided to patient in accordance with Admission requirements found in Title 42 Section 412.3 of the Code of Federal Regulations Patient History Date of Service: 01/06/18 Primary Care Provider: None Reason for admission: DKA History of Present Illness: Ms Townsend is a 27 years old woman with history of diabetes mellitus type 1, who does not have physician follow up, just take her insulin from [employer] without change her dose for the last 3 years. She presented to the ED complaining of having some nausea vomiting and abdominal pain and having high blood sugar read at the house. Patient stated that she had a alliance party at her house on Saturday and had couple of years and food that was high in sugar and thinks that that caused her to have acute exacerbation of her diabetes and thus decided to come to the ER. Patient states that she usually takes Levemir 14 units at night time and Novolin on sliding scale 3 times a day. Patient denies having any fever chills chest pain shortness of breath or any other associated symptoms. Was recently hospitalized for similar symptoms in October In the ER patient was found to have DKA and thus was admitted for further care Allergies No Known Allergies Allergy (Unverified 01/06/18 07:31) Home Medications: Insulin Aspart [Novolog] 10 units SQ TID 09/13/17 Insulin Detemir [Levemir] 14 units SQ BEDTIME 01/06/18 - Past Medical/Surgical History Has patient received pneumonia vaccine in the past: No Diabetic: Yes -: IDDM - Social History Smoking Status: Never smoker Alcohol use: Yes CD- Drugs: No Caffeine use: No Place of Residence: Home Review of Systems 10-point ROS is otherwise unremarkable Physical Examination - Vital Signs Temperature: 98.7 F Blood Pressure: 118/68 Pulse: 126 Respirations: 16 - Physical Exam General: Alert, In no apparent distress HEENT: Atraumatic, PERRLA, Mucous membr. moist/pink, EOMI, Sclerae nonicteric Neck: Supple, 2+ carotid pulse no bruit, No LAD, Without JVD or thyroid abnormality Respiratory: Clear to auscultation bilaterally, Normal air movement Cardiovascular: Regular rate/rhythm, Normal S1 S2 Gastrointestinal: Normal bowel sounds, No tenderness Musculoskeletal: No tenderness Integumentary: No rashes Neurological: Normal gait, Normal speech, Normal strength at 5/5 x4 extr, Normal tone, Normal affect Lymphatics: No axilla or inguinal lymphadenopathy - Studies Laboratory Data (last 24 hrs) 01/06/18 06:40: Sodium 132 L, Potassium 4.4, BUN 18, Creatinine 1.00, Glucose 605 H* 01/06/18 06:40: WBC 16.0 H, Hgb 14.3, Hct 43.3, Plt Count 349 Assessment and Plan - Problems (Diagnosis) (1) DKA, type 1 Current Visit: No Status: Acute Plan: DKA with the initial anion gap of 21 -IV fluids. An insulin drip at this time -was switched to long-acting Levemir home dose once patient is gap has been closed x2 -BMP q.4 hr and acetone q.4 hr as well -NPO at this time Qualifiers: Diabetes mellitus complication detail: without coma (2) Diabetes mellitus Current Visit: No Status: Chronic Qualifiers: Diabetes mellitus type: type 1 Diabetes mellitus complication status: without complication Qualified Code(s): E10.9 - Type 1 diabetes mellitus without complications - Plan Will admit to ICU for further care. Discharge Plan: Home Plan to discharge in: 48 Hours - Advance Directives Does patient have a Living Will: No Does patient have a Durable POA for Healthcare: No - Code Status/Comfort Care Code Status Assessed: Yes Critical Care: No
[2018-01-06 15:57] LABS: BUN Blood Urea Nitrogen 12 mg/dL (7-18); Glucose Level 175 mg/dL (74-106); Potassium 4.2 mmol/L (3.5-5.1); Sodium Level 141 mmol/L (136-145)
[2018-01-06 16:04] LABS: Bicarbonate 12 mmol/L (21-32)
[2018-01-06 19:32] LABS: BUN Blood Urea Nitrogen 11 mg/dL (7-18); Bicarbonate 16 mmol/L (21-32); Glucose Level 119 mg/dL (74-106); Potassium 3.8 mmol/L (3.5-5.1); Sodium Level 141 mmol/L (136-145)
[2018-01-07 00:06] LABS: BUN Blood Urea Nitrogen 11 mg/dL (7-18); Bicarbonate 18 mmol/L (21-32); Glucose Level 154 mg/dL (74-106); Potassium 3.6 mmol/L (3.5-5.1); Sodium Level 142 mmol/L (136-145)
[2018-01-07] MEDS: D5 0.45 NS 1,000 ML IV SCH ×2 (01:49→07:36)
[2018-01-07 03:06] LABS: Absolute Lymphocytes (CBC) 4.2 K/uL (0.7-4.9); Absolute Neutrophil 4.9 K/uL (1.8-8.0); Basophils % 0.7 % (0-1.3); Eosinophils % 1.1 % (0-4.4); Hematocrit 33.8 % (36.0-45.0); Lymphocytes % 40.7 % (15.3-44.8); MCH 30.9 pg (27.0-35.0); MCV 89.5 fL (80-100); MPV 8.5 fL (7.6-11.3); Monocytes % 9.6 % (3.3-12.3); RBC Red Blood Cell Count 3.77 M/uL (3.86-4.86)
[2018-01-07 03:19] LABS: Magnesium 1.9 mg/dL (1.8-2.4); Phosphorus 2.4 mg/dL (2.5-4.9)
[2018-01-07 03:28] LABS: BUN Blood Urea Nitrogen 11 mg/dL (7-18); Bicarbonate 18 mmol/L (21-32); Glucose Level 190 mg/dL (74-106); Potassium 3.3 mmol/L (3.5-5.1); Sodium Level 141 mmol/L (136-145)
[2018-01-07 04:55] VITALS: BMI 22.7
[2018-01-07] MEDS: ENOXAPARIN 40 MG/0.4 ML SQ SCH (07:36)
[2018-01-07] MEDS ORDERED: D50W 25 GM/50 ML SYRINGE IV PRN ×2 (08:28→12:45)
[2018-01-07] MEDS ORDERED: GLUCAGON 1 MG/VIAL IM PRN ×2 (08:28→12:45)
[2018-01-07] MEDS ORDERED: POTASSIUM CL SA 10 MEQ TAB PO ONE (10:33)
[2018-01-07] MEDS: POTASS/SODIUM PHOSPHATE 1 PKT POWD.PACK PO SCH ×3 (11:28→13:08)
[2018-01-07 12:35] LABS: BUN Blood Urea Nitrogen 7 mg/dL (7-18); Bicarbonate 18 mmol/L (21-32); Glucose Level 248 mg/dL (74-106); Potassium 3.4 mmol/L (3.5-5.1); Sodium Level 139 mmol/L (136-145)
--- NOTE | 2018-01-07 15:28 | P.SSS ---
Patient History Date of Service: 01/07/18 Primary Care Provider: None Reason for admission: DKA History of Present Illness: Ms Townsend is a 27 years old woman with history of diabetes mellitus type 1, who does not have physician follow up, just take her insulin from [employer] without change her dose for the last 3 years. She presented to the ED complaining of having some nausea vomiting and abdominal pain and having high blood sugar read at the house. Patient stated that she had a republican at her house on Saturday and had couple of years and food that was high in sugar and thinks that that caused her to have acute exacerbation of her diabetes and thus decided to come to the ER. Patient states that she usually takes Levemir 14 units at night time and Novolin on sliding scale 3 times a day. Patient denies having any fever chills chest pain shortness of breath or any other associated symptoms. Was recently hospitalized for similar symptoms in October In the ER patient was found to have DKA and thus was admitted for further care Allergies No Known Allergies Allergy (Unverified 01/06/18 07:31) Home Medications: Insulin Aspart [Novolog] 10 units SQ TID #1 cartridge 01/07/18 Insulin Detemir [Levemir] 14 units SQ BEDTIME #10 ml 01/07/18 - Past Medical/Surgical History Has patient received pneumonia vaccine in the past: No Diabetic: Yes -: IDDM - Social History Smoking Status: Never smoker Alcohol use: Yes CD- Drugs: No Caffeine use: No Place of Residence: Home Review of Systems 10-point ROS is otherwise unremarkable Physical Examination - Vital Signs Temperature: 98.7 F Blood Pressure: 115/71 Pulse: 88 Respirations: 19 Pulse Ox (%): 100 - Physical Exam General: Alert, In no apparent distress HEENT: Atraumatic, PERRLA, Mucous membr. moist/pink, EOMI, Sclerae nonicteric Neck: Supple, 2+ carotid pulse no bruit, No LAD, Without JVD or thyroid abnormality Respiratory: Clear to auscultation bilaterally, Normal air movement Cardiovascular: Regular rate/rhythm, Normal S1 S2 Gastrointestinal: Normal bowel sounds, No tenderness Musculoskeletal: No tenderness Integumentary: No rashes Neurological: Normal gait, Normal speech, Normal strength at 5/5 x4 extr, Normal tone, Normal affect Lymphatics: No axilla or inguinal lymphadenopathy - Diagnosis (Problem(s)) (1) DKA, type 1 Onset Date: 01/07/18 Current Visit: Yes Status: Acute Plan: Admitted for DKA which is now resolved -Was on Insulin ggt and weaned off successfully once the Gap was closed x2 -Pt was transitioned to Long acting Insulin -DC home with ppx for insulin and list of PCP to be given to establish care. Qualifiers: Diabetes mellitus complication detail: without coma (2) Diabetes mellitus Onset Date: 01/07/18 Current Visit: Yes Status: Chronic Qualifiers: Diabetes mellitus type: type 1 Diabetes mellitus complication status: without complication Qualified Code(s): E10.9 - Type 1 diabetes mellitus without complications - Disposition Disposition: ROUTINE DISCHARGE Condition: GOOD Diet: Regular Activity: Ad brown
[2018-01-07] MEDS: INSULIN -REGULAR HUMAN 50 UNIT/0.5 ML ML SQ SCH ×2 (16:41→20:10)
[2018-01-08 05:22] LABS: Absolute Lymphocytes (CBC) 3.1 K/uL (0.7-4.9); Absolute Monocytes 0.6 K/uL (0.1-1.3); Absolute Neutrophil 2.6 K/uL (1.8-8.0); Basophils % 0.6 % (0-1.3); Eosinophils % 1.5 % (0-4.4); Lymphocytes % 48.1 % (15.3-44.8); MCH 31.5 pg (27.0-35.0); MCV 89.9 fL (80-100); MPV 8.5 fL (7.6-11.3); Monocytes % 9.7 % (3.3-12.3); RBC Red Blood Cell Count 3.78 M/uL (3.86-4.86)
[2018-01-08 05:37] LABS: Phosphorus 3.4 mg/dL (2.5-4.9)
[2018-01-08] MEDS ORDERED: INSULIN GLARGINE 100 UNITS/ML SQ ONE ×2 (08:29)
[2018-01-08] MEDS: ENOXAPARIN 40 MG/0.4 ML SQ SCH (08:47)
[2018-01-08] MEDS: INSULIN -REGULAR HUMAN 50 UNIT/0.5 ML ML SQ SCH (08:47)
[2018-01-08 09:15] VITALS: BP 110/66; TEMP 98.6
== END 2018-01-08 12:08 | disposition home or self-care (01) | DRG 639 ==
LOC: ER 05:53 → ERHOLD 07:33 → 3RD-ICU 13:13 → 2ND 01-07 13:45
PROVIDERS: ADMIT Family Medicine; ATTEND Family Medicine
DX: E10.10 Type 1 diabetes mellitus with ketoacidosis without coma (principal)
CPT/HCPCS: 36415; 80048; 80061; 81003; 81025; 82010; 82805; 82962; 83735; 84100; 84132; 85025; 93005; 99285; J1650; J2405; J7030

== ENCOUNTER 2018-01-22 11:49 | Emergency (ER) | payer SELFPAY ==
[2018-01-22 14:07] LABS: Urine Blood NEGATIVE (NEG); Urine Glucose 2+ (NEG); Urine Protein NEGATIVE (NEG); Urine Specific Gravity 1.015 (1.005-1.030); Urine pH 6.5 (5.0-7.0)
[2018-01-22 14:44] LABS: Absolute Lymphocytes (CBC) 1.1 K/uL (0.7-4.9); Absolute Monocytes 0.5 K/uL (0.1-1.3); Absolute Neutrophil 4.2 K/uL (1.8-8.0); Basophils % 0.4 % (0-1.3); Eosinophils % 0.4 % (0-4.4); Hematocrit 40.2 % (36.0-45.0); Lymphocytes % 18.4 % (15.3-44.8); MCV 88.8 fL (80-100); MPV 8.7 fL (7.6-11.3); Monocytes % 8.3 % (3.3-12.3); RBC Red Blood Cell Count 4.53 M/uL (3.86-4.86)
[2018-01-22 15:02] LABS: ALT/SGPT 43 U/L (12-78); AST/SGOT 36 U/L (15-37); Alkaline Phosphatase 98 U/L (45-117); BUN Blood Urea Nitrogen 14 mg/dL (7-18); Bicarbonate 24 mmol/L (21-32); Bilirubin Direct < 0.1 mg/dL (0-0.2); Bilirubin Total 0.3 mg/dL (0.2-1.0); Glucose Level 258 mg/dL (74-106); Lipase 240 U/L (73-393); Potassium 3.6 mmol/L (3.5-5.1); Protein, Total 7.4 g/dL (6.4-8.2); Sodium Level 135 mmol/L (136-145)
--- NOTE | 2018-01-22 16:04 | ER ---
Nurse's Notes [facility] Name: Kristan Townsend Age: 27 yrs Sex: Female : 1990 Arrival Date: 01/22/2018 Time: 11:51 Bed 27 Private MD: Diagnosis: Generalized abdominal pain;Diarrhea, unspecified Presentation: 01/22 11:53 Presenting complaint: Patient states: "I've been having diarrhea for the past 4 days aj1 non-stop. I have a lot of pain in my stomach." Reports epigastric pain, diarrhea. Denies N/V. Denies fever. Transition of care: patient was not received from another setting of care. Onset of symptoms was January 18, 2018. Risk Assessment: Do you want to hurt yourself or someone else? Patient reports no desire to harm self or others. Initial Sepsis Screen: Does the patient meet any 2 criteria? HR > 90 bpm. No. Patient's initial sepsis screen is negative. Does the patient have a suspected source of infection? Yes: Acute abdominal pain. Care prior to arrival: None. 11:53 Method Of Arrival: Ambulatory aj1 11:53 Acuity: ALEX 3 aj1 Triage Assessment: 11:56 General: Appears in no apparent distress. comfortable, Behavior is calm, cooperative, aj1 appropriate for age. Pain: Complains of pain in epigastric area Pain radiates to abdomen diffusely Pain currently is 8 out of 10 on a pain scale. Quality of pain is described as sharp, stabbing. Neuro: Level of Consciousness is awake, alert, obeys commands. Cardiovascular: Patient's skin is warm and dry. Respiratory: Airway is patent Respiratory effort is even, unlabored, Respiratory pattern is regular, symmetrical. GI: Reports upper abdominal pain, diarrhea, Patient currently denies nausea, vomiting. 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 - Social history:: Smoking status: Patient/guardian denies using tobacco. - Ebola Screening: : Patient denies travel to an Ebola-affected area in the 21 days before illness onset. Screenin:29 Abuse screen: Denies threats or abuse. Denies injuries from another. Nutritional ss screening: No deficits noted. Tuberculosis screening: Never had TB. Fall Risk None identified. Assessment: 14:20 General: Appears in no apparent distress. comfortable, Behavior is calm, cooperative, ss Denies fever, feeling ill, fatigue, chills. Pain: Complains of pain in epigastric area Pain currently is 7 out of 10 on a pain scale. Quality of pain is described as aching, Pain began 1 week ago, has been getting progressively worse Is continuous. Neuro: Level of Consciousness is awake, alert, obeys commands, Oriented to person, place, time, situation. Cardiovascular: Heart tones S1 S2 present Capillary refill < 3 seconds is brisk in bilateral fingers Patient's skin is warm and dry. Respiratory: Airway is patent Trachea midline Respiratory effort is even, unlabored, Respiratory pattern is regular, symmetrical. GI: Bowel sounds present X 4 quads. Abd is soft X 4 quads Abdomen is tender to palpation in epigastric area. GI: Reports diarrhea, Patient currently denies bloody stool, constipation, nausea, vomiting. : No signs and/or symptoms were reported regarding the genitourinary system. EENT: Oral mucosa is moist. Throat is clear. Derm: Skin is intact, is healthy with good turgor, Skin is dry. Musculoskeletal: Circulation, motion, and sensation intact. Range of motion: intact in all extremities, Swelling absent. 16:17 Reassessment: Patient appears in no apparent distress at this time. Patient and/or mg2 family updated on plan of care and expected duration. Pain level reassessed. Patient is alert, oriented x 3, equal unlabored respirations, skin warm/dry/pink. patient for discharge but still to complete the iv fluid. Vital Signs: 11:56 BP 119 / 86; Pulse 112; Resp 18; Temp 98.0(TE); Pulse Ox 100% on R/A; Weight 63.05 kg aj1 (R); Height 5 ft. 4 in. (162.56 cm) (R); Pain 8/10; 14:46 BP 111 / 76; Pulse 102; Resp 16; Pulse Ox 100% on R/A; Pain 7/10; ss 15:54 BP 112 / 76; Pulse 93; Resp 18; Pulse Ox 100% on R/A; Pain 0/10; mg2 16:27 BP 110 / 80; Pulse 90; Resp 18; Pulse Ox 100% on R/A; Pain 0/10; mg2 11:56 Body Mass Index 23.86 (63.05 kg, 162.56 cm) aj1 ED Course: 11:51 Patient arrived in ED. as 11:56 Triage completed. aj1 11:56 Arm band placed on Patient placed in waiting room, Patient notified of wait time. aj1 13:37 [facility]C [facility] kb 13:37 Gerson Rosa MD is Attending Physician. kb 14:20 Inserted saline lock: 22 gauge in right antecubital area, using aseptic technique. ss Blood collected. 14:27 Jannie Spencer, GABRIELA is Primary Nurse. ss 14:29 Patient has correct armband on for positive identification. Placed in gown. Bed in low ss position. Call light in reach. Side rails up X 1. Pulse ox on. NIBP on. 15:25 No provider procedures requiring assistance completed. IV discontinued, intact, mg2 bleeding controlled, No redness/swelling at site. Pressure dressing applied. 15:25 Inserted saline lock: 22 gauge in left forearm, using aseptic technique. mg2 16:27 IV discontinued, intact, bleeding controlled, No redness/swelling at site. Pressure mg2 dressing applied. Administered Medications: 14:22 Drug: NS 0.9% 1000 ml Route: IV; Rate: 1000 ml; Site: right antecubital; ss 16:28 Follow up: Response: No adverse reaction; IV Status: Completed infusion mg2 Point of Care Testing: Blood Glucose: 12:07 Blood Glucose: 347 mg/dL; aj1 Ranges: Outcome: 16:04 Discharge ordered by . kb 16:28 Discharged to home ambulatory, with family. mg2 16:28 Condition: stable 16:28 Discharge instructions given to patient, family, Instructed on discharge instructions, follow up and referral plans. medication usage, Demonstrated understanding of instructions, follow-up care, medications, Prescriptions given X 1. 16:29 Patient left the ED. mg2 Signatures: Lili Rogers FNP-C FNP-Ckb Johnson, Angela, RN RN aj1 Jennifer Felton as Jannie Spencer RN RN Gardose, Sanket, RN RN mg2
--- NOTE | 2018-01-22 16:04 | EDPHYS ---
Physician Documentation [facility] Name: Kristan Townsend Age: 27 yrs Sex: Female : 1990 Arrival Date: 01/22/2018 Time: 11:51 Bed 27 Private MD: ED Physician Gerson Rosa HPI: 01/22 16:01 This 27 yrs old Female presents to ER via Ambulatory with complaints of kb Abdominal Pain, Diarrhea. 16:01 The patient has not experienced similar symptoms in the past. The patient has not kb recently seen a physician. 16:01 The patient presents with abdominal pain in the epigastric area, in the lower abdomen. kb Onset: The symptoms/episode began/occurred 4 day(s) ago. The symptoms do not radiate. Associated signs and symptoms: Pertinent positives: diarrhea, Pertinent negatives: nausea and vomiting. The symptoms are described as crampy. Modifying factors: The symptoms are alleviated by nothing, the symptoms are aggravated by nothing. Severity of pain: At its worst the pain was moderate in the emergency department the pain is unchanged. 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 - Social history:: Smoking status: Patient/guardian denies using tobacco. - Ebola Screening: : Patient denies travel to an Ebola-affected area in the 21 days before illness onset. ROS: 16:00 Constitutional: Negative for fever, chills, and weight loss, Cardiovascular: Negative kb for chest pain, palpitations, and edema, Respiratory: Negative for shortness of breath, cough, wheezing, and pleuritic chest pain, Back: Negative for injury and pain, : Negative for injury, bleeding, discharge, and swelling, MS/Extremity: Negative for injury and deformity, Skin: Negative for injury, rash, and discoloration, Neuro: Negative for headache, weakness, numbness, tingling, and seizure. 16:00 Abdomen/GI: Positive for abdominal pain, diarrhea. Exam: 16:00 Constitutional: This is a well developed, well nourished patient who is awake, alert, kb and in no acute distress. Head/Face: Normocephalic, atraumatic. Chest/axilla: Normal chest wall appearance and motion. Nontender with no deformity. No lesions are appreciated. Cardiovascular: Regular rate and rhythm with a normal S1 and S2. No gallops, murmurs, or rubs. Normal PMI, no JVD. No pulse deficits. Respiratory: Lungs have equal breath sounds bilaterally, clear to auscultation and percussion. No rales, rhonchi or wheezes noted. No increased work of breathing, no retractions or nasal flaring. Back: No spinal tenderness. No costovertebral tenderness. Full range of motion. Skin: Warm, dry with normal turgor. Normal color with no rashes, no lesions, and no evidence of cellulitis. MS/ Extremity: Pulses equal, no cyanosis. Neurovascular intact. Full, normal range of motion. Neuro: Awake and alert, GCS 15, oriented to person, place, time, and situation. Cranial nerves II-XII grossly intact. Motor strength 5/5 in all extremities. Sensory grossly intact. Cerebellar exam normal. Normal gait. 16:00 Abdomen/GI: Inspection: abdomen appears normal, Bowel sounds: normal, in all quadrants, Palpation: soft, in all quadrants, mild abdominal tenderness, in the epigastric area, right lower quadrant and left lower quadrant. Vital Signs: 11:56 BP 119 / 86; Pulse 112; Resp 18; Temp 98.0(TE); Pulse Ox 100% on R/A; Weight 63.05 kg aj1 (R); Height 5 ft. 4 in. (162.56 cm) (R); Pain 8/10; 14:46 BP 111 / 76; Pulse 102; Resp 16; Pulse Ox 100% on R/A; Pain 7/10; ss 15:54 BP 112 / 76; Pulse 93; Resp 18; Pulse Ox 100% on R/A; Pain 0/10; mg2 16:27 BP 110 / 80; Pulse 90; Resp 18; Pulse Ox 100% on R/A; Pain 0/10; mg2 11:56 Body Mass Index 23.86 (63.05 kg, 162.56 cm) aj MDM: 13:37 Patient medically screened. kb 16:00 Data reviewed: vital signs, nurses notes. Data interpreted: Pulse oximetry: on room air kb is 100 %. Interpretation: normal. Counseling: I had a detailed discussion with the patient and/or guardian regarding: the historical points, exam findings, and any diagnostic results supporting the discharge/admit diagnosis, lab results, the need for outpatient follow up, a family practitioner, to return to the emergency department if symptoms worsen or persist or if there are any questions or concerns that arise at home. 01/22 13:48 Order name: Basic Metabolic Panel; Complete Time: 15:27 kb 01/22 13:48 Order name: CBC with Diff; Complete Time: 14:47 kb 01/22 13:48 Order name: Creatinine for Radiology; Complete Time: 15:01 kb 01/22 13:48 Order name: Hepatic Function; Complete Time: 15:27 kb 01/22 13:48 Order name: Lipase; Complete Time: 15:27 kb 01/22 14:00 Order name: Urine Dipstick--Ancillary (enter results); Complete Time: 14:16 bd 01/22 13:48 Order name: IV Saline Lock; Complete Time: 14:28 kb 01/22 13:48 Order name: Labs collected and sent; Complete Time: 14:28 kb 01/22 13:48 Order name: Urine Dipstick-Ancillary (obtain specimen); Complete Time: 14:28 kb 01/22 14:00 Order name: Urine --Ancillary (enter results); Complete Time: 14:16 bd 01/22 15:28 Order name: Hemoglobin A1c kb Administered Medications: 14:22 Drug: NS 0.9% 1000 ml Route: IV; Rate: 1000 ml; Site: right antecubital; 16:28 Follow up: Response: No adverse reaction; IV Status: Completed infusion mg2 Point of Care Testing: Blood Glucose: 12:07 Blood Glucose: 347 mg/dL; aj1 Ranges: Critical Glucose Levels:Adult <50 mg/dl or >400 mg/dl <40 mg/dl or >180 mg/dl Disposition: 18:23 Co-signature as Attending Physician, Gerson Roas MD. Disposition: 01/22/18 16:04 Discharged to Home. Impression: Generalized abdominal pain, Diarrhea, unspecified. - Condition is Stable. - Discharge Instructions: Food Choices to Help Relieve Diarrhea, Adult, Abdominal Pain, Adult, [id number], Diarrhea, Adult, [id number]. - Prescriptions for Bentyl 20 mg Oral Tablet - take 1 tablet by ORAL route every 6 hours As needed; 20 tablet. - Medication Reconciliation Form, Thank You Letter, Antibiotic Education, Prescription Opioid Use, Work release form form. - Follow up: Emergency Department; When: As needed; Reason: Worsening of condition. Follow up: Private Physician; When: 2 - 3 days; Reason: Recheck today's complaints, Continuance of care, Re-evaluation by your physician. Signatures: Dispatcher [employer] Lili Rogers, PASTRYCOOK-C PASTRYCOOK-CkElo Cano RN RN aj1 Jannie Spencer RN RN ss Gerson Rosa MD MD gs Sanket Cash RN RN mg2 Corrections: (The following items were deleted from the chart) 16:29 16:04 01/22/2018 16:04 Discharged to Home. Impression: Generalized abdominal pain; mg2 Diarrhea, unspecified. Condition is Stable. Forms are Medication Reconciliation Form, Thank You Letter, Antibiotic Education, Prescription Opioid Use. Follow up: Emergency Department; When: As needed; Reason: Worsening of condition. Follow up: Private Physician; When: 2 - 3 days; Reason: Recheck today's complaints, Continuance of care, Re-evaluation by your physician. kb
[2018-01-22 16:33] VITALS: TEMP 98; O2SAT 100
[2018-01-22 16:37] VITALS: BP 110/80
== END 2018-01-22 16:29 | disposition home or self-care (01) ==
LOC: ER 11:49
DX: R19.7 Diarrhea, unspecified (principal); E11.9 Type 2 diabetes mellitus without complications; Z79.4 Long term (current) use of insulin
CPT/HCPCS: 36415; 80048; 80076; 81003; 81025; 82962; 83690; 85025; 96360; 96361; 99284

== ENCOUNTER 2018-07-02 08:14 | Emergency (ER) | payer SELFPAY ==
[2018-07-02] MEDS ORDERED: NA CHLORIDE 0.9% 1,000 ML ONE ×2 (08:58→10:15)
[2018-07-02] MEDS ORDERED: ONDANSETRON 4 MG/2 ML VIAL ONE (08:58)
[2018-07-02 09:05] LABS: Absolute Lymphocytes (CBC) 1.7 K/uL (0.7-4.9); Absolute Monocytes 0.7 K/uL (0.1-1.3); Absolute Neutrophil 4.2 K/uL (1.8-8.0); Basophils % 0.8 % (0-1.3); Eosinophils % 1.2 % (0-4.4); Hematocrit 40.7 % (36.0-45.0); Lymphocytes % 25.3 % (15.3-44.8); MPV 8.7 fL (7.6-11.3); Monocytes % 10.1 % (3.3-12.3)
[2018-07-02 09:31] LABS: ALT/SGPT 59 U/L (12-78); AST/SGOT 36 U/L (15-37); Albumin 3.1 g/dL (3.4-5.0); Alkaline Phosphatase 108 U/L (45-117); BUN Blood Urea Nitrogen 19 mg/dL (7-18); Bicarbonate 25 mmol/L (21-32); Bilirubin Direct 0.1 mg/dL (0-0.2); Bilirubin Total 0.5 mg/dL (0.2-1.0); Lipase 163 U/L (73-393); Potassium 4.8 mmol/L (3.5-5.1); Protein, Total 7.6 g/dL (6.4-8.2); Sodium Level 131 mmol/L (136-145); Troponin (Emerg Dept Use Only) < 0.02 ng/mL (0.0-0.045)
[2018-07-02 09:36] LABS: Glucose Level 533 mg/dL (74-106)
[2018-07-02 09:45] LABS: Urine Blood TRACE (NEG); Urine Glucose 2+ (NEG); Urine Protein NEGATIVE (NEG); Urine pH 5.5 (5.0-7.0)
[2018-07-02] MEDS ORDERED: INSULIN -REGULAR HUMAN 50 UNIT/0.5 ML ML ONE (10:15)
--- NOTE | 2018-07-02 10:36 | RAD REPORT ---
EXAM DESCRIPTION: CTAbdomen Pelvis W Contrast - 07/02/2018 10:20 am CLINICAL HISTORY: Abdominal pain. Abd pain;Epigastric pain COMPARISON: No comparisons TECHNIQUE: Biphasic CT imaging of the abdomen and pelvis was performed with 100 ml non-ionic IV cont rast. All CT scans are performed using dose optimization technique as appropriate and may include automated exposure control or mA/KV adjustment according to patient size. FINDINGS: The lung bases are clear. The liver, spleen, pancreas, adrenal glands are within normal limits. No hydronephrosis or focal dianna l masses. No bowel obstruction, free air, free fluid or abscess. The appendix is not identified as a discrete structure, however, no secondary findings of appendicitis are identified. Moderate fecal retention i n the colon. No evidence of significant lymphadenopathy. No suspicious bony findings. IMPRESSION: No acute intra-abdominal or pelvic finding.
--- NOTE | 2018-07-02 11:18 | ER ---
Nurse's Notes [facility] Name: Kristan Townsend Age: 28 yrs Sex: Female : 1990 Arrival Date: 07/02/2018 Time: 08:20 Bed 8 Private MD: Unknown, Unknown Diagnosis: Unspecified abdominal pain;Hyperglycemia, unspecified;Vomiting Presentation: 07/02 08:20 Presenting complaint: Patient states: intermittent epigastric pain that began 2-3 days aa5 ago. Pt reports vomiting 4 times during the night.Denies diarrhea, reports Last BM was 1 week ago. 08:20 Transition of care: patient was not received from another setting of care. Onset of aa5 symptoms was June 2018. Risk Assessment: Do you want to hurt yourself or someone else? Patient reports no desire to harm self or others. Initial Sepsis Screen: Does the patient meet any 2 criteria? No. Patient's initial sepsis screen is negative. Does the patient have a suspected source of infection? No. Patient's initial sepsis screen is negative. Care prior to arrival: None. 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 Screenin:30 Abuse screen: Denies threats or abuse. Nutritional screening: No deficits noted. aa5 Tuberculosis screening: No symptoms or risk factors identified. Fall Risk None identified. Assessment: 08:20 General: Appears comfortable, Behavior is calm, cooperative. Pain: Complains of pain in aa5 epigastric area Pain does not radiate. Pain currently is 7 out of 10 on a pain scale. Quality of pain is described as sharp, Pain began 2-3 days ago. Is intermittent. Neuro: Level of Consciousness is awake, alert, obeys commands, Oriented to person, place, time, situation. Cardiovascular: Heart tones S1 S2 present Rhythm is regular. Respiratory: Airway is patent Respiratory effort is even, unlabored, Respiratory pattern is regular, symmetrical, Breath sounds are clear bilaterally. Denies cough. GI: Abdomen is round non-distended, Bowel sounds present X 4 quads. Abdomen is tender to palpation in epigastric area Reports constipation, nausea, vomiting, Patient currently denies diarrhea. : No signs and/or symptoms were reported regarding the genitourinary system. EENT: No signs and/or symptoms were reported regarding the EENT system. Derm: Skin is pink, warm \T\ dry. Musculoskeletal: Range of motion: intact in all extremities. 08:59 Reassessment: Patient and/or family updated on plan of care and expected duration. Pain aa5 level reassessed. Patient is alert, oriented x 3, equal unlabored respirations, skin warm/dry/pink. Pt notified of wait time for lab results. . 11:00 Reassessment: Patient and/or family updated on plan of care and expected duration. Pain aa5 level reassessed. Patient is alert, oriented x 3, equal unlabored respirations, skin warm/dry/pink. Pain: Pain currently is 5 out of 10 on a pain scale. 11:40 Reassessment: Patient is alert, oriented x 3, equal unlabored respirations, skin aa5 warm/dry/pink. Vital Signs: 08:20 BP 125 / 81; Pulse 89; Resp 16 S; Temp 97.8(O); Pulse Ox 97% on R/A; Pain 7/10; aa5 09:30 BP 120 / 80; Pulse 85; Resp 16 S; Pulse Ox 98% on R/A; aa5 11:00 BP 115 / 72; Pulse 80; Resp 16 S; Pulse Ox 98% on R/A; aa5 ED Course: 08:20 Patient arrived in ED. mr 08:20 Unknown, Unknown is Private Physician. mr 08:20 Arm band placed on Patient placed in an exam room, on a stretcher. aa5 08:20 Patient has correct armband on for positive identification. Placed in gown. Bed in low aa5 position. Call light in reach. Side rails up X2. 08:29 Chema Brenner NP is PHCP. pm1 08:29 Zach Hare MD is Attending Physician. pm1 08:38 Maritza Vargas, GABRIELA is Primary Nurse. aa5 08:40 Triage completed. aa5 08:54 Initial lab(s) drawn, by me, sent to lab. Inserted saline lock: 22 gauge in right aa5 antecubital area, using aseptic technique. Blood collected. 08:54 No provider procedures requiring assistance completed. aa5 08:55 EKG done, by technical aide. reviewed by Chema Brenner NP. at1 10:19 CT Abd/Pelvis - W/Contrast: IV contrast only In Process Unspecified. EDMS 10:19 CT completed. Patient tolerated procedure well. Patient moved to CT via wheelchair. jg6 Patient moved back from CT. 11:40 IV discontinued, intact, bleeding controlled, No redness/swelling at site. Pressure pc1 dressing applied. Administered Medications: 08:58 Drug: Zofran 4 mg Route: IVP; Site: right antecubital; aa5 09:05 Follow up: Response: No adverse reaction aa5 08:58 Drug: NS 0.9% 1000 ml Route: IV; Rate: 1000 ml; Site: right antecubital; aa5 10:11 Follow up: IV Status: Completed infusion aa5 10:11 Drug: NS 0.9% 1000 ml Route: IV; Rate: 1000 ml; Site: right antecubital; jl7 11:11 Follow up: IV Status: Completed infusion aa5 10:11 Drug: Insulin Regular Human 10 units {Co-Signature: aa5 (Maritza Vargas RN).} Route: jl7 IVP; Site: right antecubital; 11:11 Follow up: Response: No adverse reaction; Blood sugar is lowered aa5 Point of Care Testing: Blood Glucose: 11:16 Blood Glucose: 369 mg/dL; aa5 Ranges: Outcome: 11:17 Discharge ordered by MD. pm1 11:43 Discharged to home ambulatory. aa5 11:43 Condition: stable 11:43 Discharge instructions given to patient, Instructed on discharge instructions, follow up and referral plans. medication usage, Demonstrated understanding of instructions, follow-up care, medications, Prescriptions given X 1. 11:44 Patient left the ED. aa5 Signatures: Dispatcher [employer] EDID Cheri Degroot SamMaritza RN RN aa5 Iveth Leavitt, conveyor feeder EKG Tat1 Chema Brenner, TATUM METER READERS SUPERVISOR pm1 Jaden Pradhan RN RN jl7 Tanika Monae6 Chema España pc1 Maritza Vargas RN aa5 Corrections: (The following items were deleted from the chart) : 11:00 BP 115 / 72; Pulse 80bpm; Resp 16bpm; Spontaneous; Pulse Ox 98% RA; pc1 aa5 11: 09:30 BP 120 / 80; Pulse 85bpm; Resp 16bpm; Spontaneous; Pulse Ox 98% RA; pc1 aa5 11: 11:40 Reassessment: Patient is alert, oriented x 3, equal unlabored respirations, skin aa5 warm/dry/pink. pc1 : 11:00 Reassessment: Patient and/or family updated on plan of care and expected aa5 duration. Pain level reassessed. Patient is alert, oriented x 3, equal unlabored respirations, skin warm/dry/pink. pc1 : 11:00 Pain: Pain currently is 5 out of 10 on a pain scale. pc1 aa5 11: 11:44 Patient left the ED. pc1 aa5 11:43 Discharged to home ambulatory, pc1 aa5 11:43 Condition: stable pc1 aa5 11:43 Discharge instructions given to patient, Instructed on discharge instructions, aa5 follow up and referral plans. medication usage, Demonstrated understanding of instructions, follow-up care, medications, Prescriptions given X 1, pc1 11:11 Response: No adverse reaction; Blood sugar is lowered pc1 aa5 10:11 IV Status: Completed infusion pc1 aa5 11:11 IV Status: Completed infusion pc1 aa5 11 09:05 Response: No adverse reaction pc1 aa5
--- NOTE | 2018-07-02 11:18 | EDPHYS ---
Physician Documentation [facility] Name: Kristan Townsend Age: 28 yrs Sex: Female : 1990 Arrival Date: 07/02/2018 Time: 08:20 Bed 8 Private MD: Unknown, Unknown ED Physician Zach Hare HPI: 07/02 09:00 This 28 yrs old Female presents to ER via Ambulatory with complaints of pm1 Abdominal Pain, Chest Pain, Vomiting. 09:00 The patient presents with abdominal pain in the epigastric area. Onset: The pm1 symptoms/episode began/occurred 2 day(s) ago. The symptoms do not radiate. Associated signs and symptoms: Pertinent positives: nausea and vomiting, Pertinent negatives: constipation, diarrhea, dysuria, fever, shortness of breath. The symptoms are described as crampy. Modifying factors: The symptoms are alleviated by nothing, the symptoms are aggravated by nothing. Severity of pain: in the emergency department the pain is unchanged. The patient has not experienced similar symptoms in the past. The patient has not recently seen a physician. 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 ROS: 09:00 Constitutional: Negative for fever, chills, and weight loss, Eyes: Negative for injury, pm1 pain, redness, and discharge, ENT: Negative for injury, pain, and discharge, Neck: Negative for injury, pain, and swelling. 09:00 Respiratory: Negative for shortness of breath, cough, wheezing, and pleuritic chest pain. 09:00 Back: Negative for injury and pain, : Negative for injury, bleeding, discharge, and swelling, MS/Extremity: Negative for injury and deformity, Skin: Negative for injury, rash, and discoloration, Neuro: Negative for headache, weakness, numbness, tingling, and seizure. 09:00 Cardiovascular: Positive for chest pain, Negative for edema, orthopnea, palpitations. 09:00 Abdomen/GI: Positive for abdominal pain, nausea and vomiting, constipation, of the epigastric area, Negative for diarrhea. Exam: 09:00 Constitutional: This is a well developed, well nourished patient who is awake, alert, pm1 and in no acute distress. Head/Face: Normocephalic, atraumatic. Eyes: Pupils equal round and reactive to light, extra-ocular motions intact. Lids and lashes normal. Conjunctiva and sclera are non-icteric and not injected. Cornea within normal limits. Periorbital areas with no swelling, redness, or edema. ENT: Nares patent. No nasal discharge, no septal abnormalities noted. Tympanic membranes are normal and external auditory canals are clear. Oropharynx with no redness, swelling, or masses, exudates, or evidence of obstruction, uvula midline. Mucous membranes moist. Neck: Trachea midline, no thyromegaly or masses palpated, and no cervical lymphadenopathy. Supple, full range of motion without nuchal rigidity, or vertebral point tenderness. No Meningismus. Chest/axilla: Normal chest wall appearance and motion. Nontender with no deformity. No lesions are appreciated. Cardiovascular: Regular rate and rhythm with a normal S1 and S2. No gallops, murmurs, or rubs. Normal PMI, no JVD. No pulse deficits. Respiratory: Lungs have equal breath sounds bilaterally, clear to auscultation and percussion. No rales, rhonchi or wheezes noted. No increased work of breathing, no retractions or nasal flaring. 09:00 Back: No spinal tenderness. No costovertebral tenderness. Full range of motion. Skin: Warm, dry with normal turgor. Normal color with no rashes, no lesions, and no evidence of cellulitis. MS/ Extremity: Pulses equal, no cyanosis. Neurovascular intact. Full, normal range of motion. 09:00 Abdomen/GI: Inspection: abdomen appears normal, Palpation: soft, mild abdominal tenderness, in the epigastric area, mass, is not appreciated, rebound tenderness, is not appreciated. 09:00 Neuro: Orientation: is normal, Motor: is normal, Sensation: is normal, no obvious gross deficits, Gait: is steady, at a normal pace, without difficulty. Vital Signs: 08:20 BP 125 / 81; Pulse 89; Resp 16 S; Temp 97.8(O); Pulse Ox 97% on R/A; Pain 7/10; aa5 09:30 BP 120 / 80; Pulse 85; Resp 16 S; Pulse Ox 98% on R/A; aa5 11:00 BP 115 / 72; Pulse 80; Resp 16 S; Pulse Ox 98% on R/A; aa5 MDM: 08:30 Patient medically screened. [facility] 11:03 Data reviewed: vital signs. Data interpreted: Pulse oximetry: on room air is 97 %. pm1 Interpretation: normal. 11:15 ED course: Patient with reported last Hg A1C of 11. Patient's repeat glucose in range pm1 of her norm of 300s. 11:17 Counseling: I had a detailed discussion with the patient and/or guardian regarding: the pm1 historical points, exam findings, and any diagnostic results supporting the discharge/admit diagnosis, lab results, radiology results, the need for outpatient follow up, to return to the emergency department if symptoms worsen or persist or if there are any questions or concerns that arise at home. 07/02 08:35 Order name: Basic Metabolic Panel; Complete Time: 09:37 pm07/02 08:35 Order name: CBC with Diff; Complete Time: 09:12 pm07/02 08:35 Order name: Creatinine for Radiology; Complete Time: 09:24 pm07/02 08:35 Order name: Hepatic Function; Complete Time: 09:37 pm07/02 08:35 Order name: Lipase; Complete Time: 09:40 pm07/02 08:35 Order name: Troponin (emerg Dept Use Only); Complete Time: 09:40 pm07/02 08:35 Order name: EKG; Complete Time: 08:36 pm07/02 09:13 Order name: Urine Dipstick--Ancillary (enter results); Complete Time: 09:47 bd 07/02 09:13 Order name: Urine --Ancillary (enter results); Complete Time: 09:47 bd 07/02 09:52 Order name: CT Abd/Pelvis - W/Contrast: IV contrast only; Complete Time: 10:39 pm1 07/02 08:35 Order name: IV Saline Lock; Complete Time: 08:56 pm07/02 08:35 Order name: Labs collected and sent; Complete Time: 08:56 pm1 07/02 08:35 Order name: EKG - Nurse/Tech; Complete Time: 08:56 pm1 07/02 08:35 Order name: Urine Dipstick-Ancillary (obtain specimen); Complete Time: 08:56 pm1 07/02 08:35 Order name: Urine Test (obtain specimen); Complete Time: 08:56 pm1 Administered Medications: 08:58 Drug: Zofran 4 mg Route: IVP; Site: right antecubital; aa5 09:05 Follow up: Response: No adverse reaction aa5 08:58 Drug: NS 0.9% 1000 ml Route: IV; Rate: 1000 ml; Site: right antecubital; aa5 10:11 Follow up: IV Status: Completed infusion aa5 10:11 Drug: NS 0.9% 1000 ml Route: IV; Rate: 1000 ml; Site: right antecubital; jl7 11:11 Follow up: IV Status: Completed infusion aa5 10:11 Drug: Insulin Regular Human 10 units {Co-Signature: [email or web address] (Maritza Vargas RN).} Route: jl7 IVP; Site: right antecubital; 11:11 Follow up: Response: No adverse reaction; Blood sugar is lowered aa5 Point of Care Testing: Blood Glucose: 11:16 Blood Glucose: 369 mg/dL; aa5 Ranges: Critical Glucose Levels:Adult <50 mg/dl or >400 mg/dl <40 mg/dl or >180 mg/dl Disposition: 07/03 07:58 Co-signature as Attending Physician, Zach Hare MD I agree with the assessment and danny plan of care. Disposition: 07/02/18 11:17 Discharged to Home. Impression: Unspecified abdominal pain, Hyperglycemia, unspecified, Vomiting. - Condition is Stable. - Discharge Instructions: Abdominal Pain, Adult, Constipation, Adult, Hyperglycemia, Blood Glucose Monitoring, Adult. - Prescriptions for Miralax 17 gram/dose Oral - take 1 packet by ORAL route once daily As needed dilute powder in 8 ounces of water or juice; 7 packet. - Work release form, Medication Reconciliation Form, Thank You Letter, Antibiotic Education, Prescription Opioid Use form. - Follow up: Emergency Department; When: As needed; Reason: Worsening of condition. Follow up: Private Physician; When: 2 - 3 days; Reason: Recheck today's complaints, Continuance of care, Re-evaluation by your physician. - Problem is new. - Symptoms have improved. Signatures: Dispatcher [employer] EDMS Zach Hare, Maritza Russell MD, cha, RN RN aa5 Chema Brenner, SCALE ADJUSTER SCALE ADJUSTER pm1 Jaden Pradhan RN RN jl7 Chema España pc1 Maritza Vargas RN aa5 Corrections: (The following items were deleted from the chart) 07/02 11:18 11:17 07/02/2018 11:17 Discharged to Home. Impression: Unspecified abdominal pain; pm1 Hyperglycemia, unspecified. Condition is Stable. Forms are Medication Reconciliation Form, Thank You Letter, Antibiotic Education, Prescription Opioid Use. Follow up: Emergency Department; When: As needed; Reason: Worsening of condition. Follow up: Private Physician; When: 2 - 3 days; Reason: Recheck today's complaints, Continuance of care, Re-evaluation by your physician. Problem is new. Symptoms have improved. pm1 11:44 11:18 07/02/2018 11:17 Discharged to Home. Impression: Unspecified abdominal pain; pc1 Hyperglycemia, unspecified; Vomiting. Condition is Stable. Forms are Medication Reconciliation Form, Thank You Letter, Antibiotic Education, Prescription Opioid Use. Follow up: Emergency Department; When: As needed; Reason: Worsening of condition. Follow up: Private Physician; When: 2 - 3 days; Reason: Recheck today's complaints, Continuance of care, Re-evaluation by your physician. Problem is new. Symptoms have improved. pm1
[2018-07-02 11:48] VITALS: BP 125/81; TEMP 97.8; O2SAT 97
--- NOTE | 2018-07-02 12:19 | EKG ---
Test Date: 2018-07-02 Test Time: 08:46:00 Ocean Export Coordinator: YANETH MEASUREMENT RESULTS: Intervals: Rate: 81 WA: 136 QRSD: 80 QT: 374 QTc: 434 Wayne: P: 38 WA: 136 QRS: 90 T: 45 INTERPRETIVE STATEMENTS: Normal sinus rhythm Rightward axis Borderline ECG Compared to ECG 01/06/2018 06:03:15 Right-axis deviation now present Sinus tachycardia no longer present Electronically Signed On 07-02-18 12:18:18 CDT by Jose Mcclelland
== END 2018-07-02 11:44 | disposition home or self-care (01) ==
LOC: ER 08:14
DX: E11.65 Type 2 diabetes mellitus with hyperglycemia (principal); R11.10 Vomiting, unspecified; Z79.4 Long term (current) use of insulin
CPT/HCPCS: 36415; 74177; 80048; 80076; 81003; 81025; 82962; 83690; 84484; 85025; 93005; 96361; 96374; 96375; 99284; J2405; J7030; Q9967

== ENCOUNTER 2019-04-30 15:34 | Emergency (ER) | payer SELFPAY ==
--- NOTE | 2019-04-30 16:36 | RAD REPORT ---
EXAM DESCRIPTION: RAD - Chest Single View - 04/30/2019 4:23 pm CLINICAL HISTORY: Dyspnea, leg swelling COMPARISON: September 2017 TECHNIQUE: AP portable chest image was obtained 1620 hours . FINDINGS: Lungs are clear. Heart and vasculature are normal. No measurable pleural effusion and no p neumothorax. No acute bony abnormality seen. No acute aortic findings suspected. IMPRESSION: No acute cardiopulmonary process. No significant interval change.
[2019-04-30 17:27] LABS: Urine Blood TRACE (NEG); Urine Glucose NEGATIVE (NEG); Urine Protein NEGATIVE (NEG); Urine pH 5.5 (5.0-7.0)
[2019-04-30 17:32] LABS: Absolute Lymphocytes (CBC) 1.7 K/uL (0.7-4.9); Basophils % 0.5 % (0-1.3); Hematocrit 36.1 % (36.0-45.0); Lymphocytes % 29.9 % (15.3-44.8); MPV 8.6 fL (7.6-11.3); RBC Red Blood Cell Count 4.01 M/uL (3.86-4.86)
[2019-04-30 17:50] LABS: ALT/SGPT 25 U/L (12-78); AST/SGOT 16 U/L (15-37); Albumin 2.8 g/dL (3.4-5.0); Alkaline Phosphatase 68 U/L (45-117); BUN Blood Urea Nitrogen 17 mg/dL (7-18); Bicarbonate 28 mmol/L (21-32); Bilirubin Direct < 0.1 mg/dL (0-0.2); Bilirubin Total 0.1 mg/dL (0.2-1.0); Glucose Level 163 mg/dL (74-106); NT PRO-BNP 51 pg/mL (<125); Potassium 4.1 mmol/L (3.5-5.1); Protein, Total 6.7 g/dL (6.4-8.2); Sodium Level 140 mmol/L (136-145)
--- NOTE | 2019-04-30 18:02 | RAD REPORT ---
EXAM DESCRIPTION: US - Extrem Venous W Compress Les - 04/30/2019 5:46 pm CLINICAL HISTORY: Leg pain and swelling COMPARISON: None. TECHNIQUE: Real-time sonographic evaluation of the bilateral lower extremity common femoral, superfi cial femoral, popliteal and posterior tibial veins was performed. FINDINGS: Normal compressibility, flow augmentation, phasic flow and spontaneous flow are identified in the left and right lower extremity common femoral, superficial femoral, popliteal and posterior t ibial veins. No intraluminal filling defects seen. IMPRESSION: No DVT in either lower extremity.
--- NOTE | 2019-04-30 18:11 | ER ---
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 Transition of care: patient was not received from another setting of care. Onset of symptoms was April 30, 2019. Risk Assessment: Do you want to hurt yourself or someone else? Patient reports no desire to harm self or others. Initial Sepsis Screen: Does the patient meet any 2 criteria? No. Patient's initial sepsis screen is negative. Does the patient have a suspected source of infection? No. Patient's initial sepsis screen is negative. Care prior to arrival: None. 15:59 Method Of Arrival: Ambulatory ph 15:59 Acuity: ALEX 3 ph Triage Assessment: 16:00 General: Appears in no apparent distress. comfortable, Behavior is calm, cooperative. ls4 16:00 Pain: Denies pain. 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 - Social history:: Smoking status: Patient/guardian denies using tobacco. - Ebola Screening: : No symptoms or risks identified at this time. Screenin:52 Abuse screen: Denies threats or abuse. Denies injuries from another. Nutritional ls4 screening: No deficits noted. Tuberculosis screening: No symptoms or risk factors identified. Fall Risk None identified. Vital Signs: 16:00 BP 110 / 70; Pulse 72; Resp 16; Temp 98.0; Pulse Ox 100% on R/A; Pain 0/10; ls4 16:01 BP 113 / 81; Pulse 89; Resp 18; Temp 98.1; Pulse Ox 100% on R/A; Weight 62.6 kg; Height ph 5 ft. 4 in. (162.56 cm); Pain 7/10; 16:01 Body Mass Index 23.69 (62.60 kg, 162.56 cm) ph ED Course: 15:34 Patient arrived in ED. as 15:54 Zach Maxwell PA is PHCP. cp 15:54 Abelino Salgado MD is Attending Physician. cp 16:01 Triage completed. ph 16:02 Arm band placed on Patient placed in an exam room, on a stretcher. ph 16:08 Madalyn Tobar, RN is Primary Nurse. ls4 16:15 No provider procedures requiring assistance completed. Inserted saline lock: 20 gauge ls4 in right antecubital area, using aseptic technique. 16:22 XRAY Chest (1 view) In Process Unspecified. EDMS 17:46 US Extremity Venous W Compression Lenny In Process Unspecified. EDMS 18:52 Patient has correct armband on for positive identification. Placed in gown. Bed in low ls4 position. Call light in reach. Side rails up X 1. aviation mechanic on. Pulse ox on. NIBP on. Warm blanket given. Verbal reassurance given. 18:53 IV discontinued, intact, bleeding controlled, No redness/swelling at site. Pressure ls4 dressing applied. Administered Medications: No medications were administered Outcome: 18:10 Discharge ordered by MD. cp 18:51 Discharged to home ambulatory. mg2 18:51 Condition: stable 18:51 Discharge instructions given to patient, Instructed on discharge instructions, follow up and referral plans. Demonstrated understanding of instructions, follow-up care. 18:54 Patient left the ED. ls4 Signatures: Dispatcher [employer] SAURABHMS Jennifer Felton Patricia, RN RN ph Zach Maxwell PA PA cp Sanket Cash RN RN mg2 Madalyn Tobar RN RN ls4
--- NOTE | 2019-04-30 18:11 | EDPHYS ---
Physician Documentation [facility] Name: Kristan Townsend Age: 28 yrs Sex: Female : 1990 Arrival Date: 04/30/2019 Time: 15:34 Bed 26 Private MD: ED Physician Abelino Salgado HPI: 04/30 16:15 This 28 yrs old Female presents to ER via Ambulatory with complaints of Leg cp Swelling. 16:15 The patient presents with pain, that is acute, swelling, tenderness. The complaints cp affect the left lower leg and left ankle, right lower leg and right ankle. 16:15 Onset: The symptoms/episode began/occurred 1 week(s) ago. cp 16:15 Associated signs and symptoms: Pertinent positives: calf tenderness, Pertinent cp negatives numbness, warmth, weakness, chest pain, shortness of breath. Treatment prior to arrival includes: no previous treatment. 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 - Social history:: Smoking status: Patient/guardian denies using tobacco. - Ebola Screening: : No symptoms or risks identified at this time. ROS: 16:20 Constitutional: Negative for body aches, chills, fever, poor PO intake. cp 16:20 Eyes: Negative for injury, pain, redness, and discharge. cp 16:20 ENT: Negative for drainage from ear(s), ear pain, sore throat, difficulty swallowing, difficulty handling secretions. 16:20 Cardiovascular: Negative for chest pain, palpitations. 16:20 Respiratory: Negative for cough, shortness of breath, wheezing. 16:20 Abdomen/GI: Negative for abdominal pain, nausea, vomiting, and diarrhea. 16:20 Back: Negative for pain at rest, pain with movement. 16:20 MS/extremity: Positive for pain, swelling, warmth, of the right ankle and left ankle, Negative for injury or acute deformity, paresthesias. 16:20 Neuro: Negative for altered mental status, headache, weakness. 16:20 All other systems are negative. Exam: 16:25 Constitutional: The patient appears in no acute distress, alert, awake, cp non-diaphoretic, non-toxic, well developed, well nourished. 16:25 Head/Face: Normocephalic, atraumatic. cp 16:25 Eyes: Periorbital structures: appear normal, Pupils: equal, round, and reactive to light and accomodation, Extraocular movements: intact throughout, Conjunctiva: normal, no exudate, no injection, Sclera: no appreciated abnormality, Lids and lashes: appear normal, bilaterally. 16:25 ENT: External ear(s): are unremarkable, Nose: is normal, Mouth: Lips: moist, Oral mucosa: pink and intact, moist, Posterior pharynx: is normal, airway is patent, no erythema, no exudate. 16:25 Neck: ROM/movement: is normal, is supple, without pain, no range of motions limitations, no nuchal rigidity. 16:25 Chest/axilla: Inspection: normal, Palpation: is normal, no crepitus, no tenderness. 16:25 Cardiovascular: Rate: normal, Rhythm: regular, Edema: ankle edema, that is mild. 16:25 Respiratory: the patient does not display signs of respiratory distress, Respirations: normal, no use of accessory muscles, no retractions, no splinting, no tachypnea, labored breathing, is not present, Breath sounds: are clear throughout, no decreased breath sounds, no stridor, no wheezing. 16:25 Abdomen/GI: Inspection: abdomen appears normal, Palpation: abdomen is soft and non-tender, in all quadrants, no appreciated organomegaly. 16:25 Musculoskeletal/extremity: Exam is negative for decreased range of motion, deformity, injury, Circulation is intact in all extremities. Sensation intact. DVT Exam: tenderness, that is mild, of the right leg, of the left leg. 16:25 Skin: cellulitis, is not appreciated, no rash present. 18:00 ECG was reviewed by the Attending Physician. cp Vital Signs: 16:00 BP 110 / 70; Pulse 72; Resp 16; Temp 98.0; Pulse Ox 100% on R/A; Pain 0/10; ls4 16:01 BP 113 / 81; Pulse 89; Resp 18; Temp 98.1; Pulse Ox 100% on R/A; Weight 62.6 kg; Height ph 5 ft. 4 in. (162.56 cm); Pain 7/10; 16:01 Body Mass Index 23.69 (62.60 kg, 162.56 cm) ph MDM: 15:58 Patient medically screened. cp 17:00 Differential diagnosis: dependent edema, renal disease, CHF, cardiac arrythmia, cp electrolyte abnormality, DVT, . 18:10 Data reviewed: vital signs, nurses notes, lab test result(s), EKG, radiologic studies, cp plain films, ultrasound, and as a result, I will discharge patient. 18:10 Test interpretation: by ED physician or midlevel provider: ECG, plain radiologic cp studies, chest xray negative for infiltrates. Counseling: I had a detailed discussion with the patient and/or guardian regarding: the historical points, exam findings, and any diagnostic results supporting the discharge/admit diagnosis, lab results, radiology results, the need for outpatient follow up, a family practitioner, to return to the emergency department if symptoms worsen or persist or if there are any questions or concerns that arise at home. 04/30 16:13 Order name: Basic Metabolic Panel; Complete Time: 18:04 04/30 18:05 Interpretation: Normal except: GLUC 163; GFR 85; CA 8.4. 04/30 16:13 Order name: CBC with Diff; Complete Time: 18:04 04/30 18:05 Interpretation: Normal except: MN% 13.3. 04/30 16:13 Order name: LFT's; Complete Time: 18:04 04/30 18:05 Interpretation: Normal except: BILIT 0.1; ALB 2.8; GLOB 3.9; A/G 0.7. 04/30 16:13 Order name: NT PRO-BNP; Complete Time: 18:04 04/30 17:04 Order name: Urine Dipstick--Ancillary (enter results); Complete Time: 18:04 em1 04/30 17:07 Order name: Urine --Ancillary (enter results) em 04/30 16:13 Order name: XRAY Chest (1 view); Complete Time: 17:05 04/30 17:05 Interpretation: Report review. 04/30 16:13 Order name: US Extremity Venous W Compression Les; Complete Time: 18:04 04/30 18:05 Interpretation: Report reviewed. 04/30 16:13 Order name: EKG; Complete Time: 16:14 04/30 16:13 Order name: Cardiac monitoring; Complete Time: 16:48 04/30 16:13 Order name: EKG - Nurse/Tech; Complete Time: 16:48 04/30 16:13 Order name: IV Saline Lock; Complete Time: 16:48 04/30 16:13 Order name: Labs collected and sent; Complete Time: 16:48 04/30 17:08 Order name: Urine --Ancillary; Complete Time: 18:04 [facility] 04/30 16:13 Order name: O2 Per Protocol; Complete Time: 16:48 04/30 16:13 Order name: O2 Sat Monitoring; Complete Time: 16:48 04/30 16:13 Order name: Urine Dipstick-Ancillary (obtain specimen); Complete Time: 17:01 04/30 16:13 Order name: Urine Test (obtain specimen); Complete Time: 17:02 04/30 16:53 Order name: Labs - recollect needed: CBC clotted; Complete Time: 17:04 em1 EC:00 Rate is 83 beats/min. Rhythm is regular. [place] interval is normal. QRS interval is normal. cp QT interval is normal. T waves are Flattened in lead III. Interpreted by me. Reviewed by me. Administered Medications: No medications were administered Disposition: 19:03 Co-signature as Attending Physician, Abelino Salgado MD. rn Disposition: 04/30/19 18:10 Discharged to Home. Impression: Edema, not elsewhere classified - bilateral foot and ankle. - Condition is Stable. - Discharge Instructions: Peripheral Edema. - Medication Reconciliation Form, Thank You Letter, Antibiotic Education, Prescription Opioid Use form. - Follow up: Private Physician; When: 2 - 3 days; Reason: Recheck today's complaints. - Problem is new. - Symptoms have improved. Signatures: Dispatcher [employer] EDHI Abelino Salgado MD MD rn Martinez, Eric em1 Drea Mcgowan RN RN ph Zach Maxwell PA PA cp Madalyn Tobar RN RN ls4 Corrections: (The following items were deleted from the chart) 18:05 18:04 Normal except: GLUC 163; GFR 85. cp cp 18:54 18:10 04/30/2019 18:10 Discharged to Home. Impression: Edema, not elsewhere classified ls4 - bilateral foot and ankle. Condition is Stable. Forms are Medication Reconciliation Form, Thank You Letter, Antibiotic Education, Prescription Opioid Use. Follow up: Private Physician; When: 2 - 3 days; Reason: Recheck today's complaints. Problem is new. Symptoms have improved. cp
[2019-04-30 19:23] VITALS: O2SAT 100
[2019-04-30 19:26] VITALS: BP 113/81; TEMP 98.1
--- NOTE | 2019-05-01 08:09 | EKG ---
Test Date: 2019-04-30 Test Time: 17:49:03 Hardware Sales Assistant: MEASUREMENT RESULTS: Intervals: Rate: 83 LA: 136 QRSD: 68 QT: 360 QTc: 423 [place]: P: 18 LA: 136 QRS: 81 T: 33 INTERPRETIVE STATEMENTS: Normal sinus rhythm Cannot rule out Anterior infarct, age undetermined Abnormal ECG Compared to ECG 07/02/2018 08:46:00 Myocardial infarct finding now present Right-axis deviation no longer present Electronically Signed On 05-01-19 08:07:27 LANDSCAPE SPECIALIST by Sorin Burgos
== END 2019-04-30 18:54 | disposition home or self-care (01) ==
LOC: ER 15:34
DX: M79.662 Pain in left lower leg (principal); R60.9 Edema, unspecified; E11.9 Type 2 diabetes mellitus without complications
CPT/HCPCS: 36415; 71045; 80048; 80076; 81003; 81025; 83880; 85025; 93005; 93970; 99284

== ENCOUNTER 2021-03-20 14:17 | Emergency (ER) | payer SELFPAY ==
--- OUTSIDE RECORDS SUMMARY | 2021-03-20 14:25 | XMS REPORT | Continuity of Care Document ---
:1990 Author Organization [facility] t Address [address] [place] [address] Care Team Providers Name Role Phone PRIYA DYSON Primary Care Physician Unavailable ADEOLA CARLTON Attending Clinician Unavailable Marbin DATA ENTRY TECHNICIAN, F Attending Clinician Reny PAC, S Attending Clinician Tesha VORA Attending Clinician Unavailable Alicia CARLTON Admitting Clinician Unavailable Payers Payer Name Policy Type Policy Number Effective Date Expiration Date S irma [employer] [place] [id number] 2012 [place] 00:[place]:00 [place] [id number] 2016 OUT OF STATE 00:00:00 Problems Condition Condition Condition Status Onset Resolution Last Treating Co mments Source Name Details Category Date Date Treatment Clinician Date Insertion Insertion Disease Active 2012-04 Overview: Univers of of 2-12 Formattin ity of implantabl implantabl 00:00: g of this [place] e e 00 note Medical subdermal subdermal might be Br anch contracept contracept different kelsy kelsy from the original. Exp. 6. Type 1 Type 1 Disease Active 2012-04 Overview: Univer s diabetes diabetes 2-05 Formattin ity of mellitus mellitus 00:00: g of this [place] as 00 note Medical might be Branch different from the original. ICD10 Diagnosis Term Watch Repair Technician Utility Not immune Not immune Disease Active Overview : Univers to rubella to rubella 10-10 Formattin ity of 00:00: g of this [place] 00 note Medical might be Branch different from the original. Given 3ICD10 Diagnosis Term Watch Repair Technician Utility Allergies, Adverse Reactions, Alerts Allergy Allergy Status Severity Reaction(s) Onset Inactive Treating Comm ents Source Name Type Date Date Clinician NO KNOWN Drug Active Univers ALLERGIE Class ity of S [facility] Social History Social Habit Start Date Stop Date Quantity Comments Source Exposure to Not sure [facility] SARS-CoV-2 [facility] (event) Branch Alcohol intake 2021-03-13 2021-03-13 Current [facility] 00:00:00 00:00:00 non-drinker of [facility] alcohol [place] (finding) Tobacco use and 2012-10-09 2012-10-09 Never used Universit y of exposure 00:00:00 00:00:00 [facility] Sex Ass[birth year] At [birth year] Universit y of 00:00:00 00:00:00 [facility] Smoking Status Start Date Stop Date Source Never smoker [facility] Medications Ordered Filled Start Stop Current Ordering Indication Dosage Frequency Signature Comments Components Source Medication Medication Date Date Medication? Clinician (SIG) Name Name dicyclomine 2020-04 No 20mg 20 mg, Uni vers (BENTYL) 05-14 Oral, ity of tablet 20 02:45: 02:45 ONCE, 1 [place] mg 00 :00 dose, On Medical Mon Branch 03/13/21 at 2045, ANSHU ketorolac 2020-04- No 30mg 30 mg, Unive rs (TORADOL) 05-14 Slow IV ity of injection 02:45: 01:56 Push, [place] 30 mg 00 :00 ONCE, 1 Medical dose, On Branch 03/13/21 at 2045, Routine
hourly team members approving Restricted medication : ADEOLA CARLTON iopamidol 2020-04- No [id number] 120mL 120 mL, Univers (ISOVUE 05-14 Intravenou ity o f 370-500 mL) 00:40: 00:40 s, ONCE, 1 [place] injection 00 :00 dose, On Medica l 120 mL Mon Branch 03/13/21 at 1900, Routine NaCl 0.9% 2020-04 1000mL at 999 Uni vers (NS) bolus -29 11-30 mL/hr, ity of infusion 22:30: 02:25 1,000 mL, [place] as 1,000 mL 00 :00 IV Medical Infusion, Branch ONCE, 1 dose, On 03/13/21 at 1630, ANSHU traMADoL 50 2020-04 Yes [id number] 50mg Take 1 Univ ers mg tablet 05-13 tablet by ity o f 00:00: mouth [place] 00 every 6 Medical (six) Branch hours as needed for Pain (scale 7-10). Indication s: acute pain insulin NPH 2012-04 Yes 11U inject 11 U nivers (HUMULIN N) 0-24 Units ity of 100 unit/mL 00:00: under the [place] injection 00 skin every evening. Branch insulin NPH 2012-04 Yes 12U inject 12 U nivers (HUMULIN N) 0-24 Units ity of 100 unit/mL 00:00: under the [place] injection 00 skin every Medi rigoberto morning. Branch insulin 2012-04 Yes 12U inject 12 Unive rs regular 0-24 Units ity of human 00:00: under the [place] (HUMULIN R) 00 skin every Me dical 100 unit/mL evening. Bran ch injection insulin 2012-04 Yes 6U inject 6 Univer s regular 0-24 Units ity of human 00:00: under the [place] (HUMULIN R) 00 skin every Me dical 100 unit/mL morning. Bran ch injection 2012-04 Yes 1{tbl} Take 1 Tab U nivers vitamin 0-24 by mouth ity of w/FA 00:00: daily. [place] (PRENATABS 00 Medical RX) tablet Branch insulin NPH 2012-04 Yes 11U inject 11 U nivers (HUMULIN N) 0-24 Units ity of 100 unit/mL 00:00: under the [place] injection 00 skin every Medi rigoberto evening. Branch insulin NPH 2012-04 Yes 12U inject 12 U nivers (HUMULIN N) 0-24 Units ity of 100 unit/mL 00:00: under the [place] injection 00 skin every Medi rigoberto morning. Branch insulin 2012-04 Yes 12U inject 12 Unive rs regular 0-24 Units ity of human 00:00: under the [place] (HUMULIN R) 00 skin every Me dical 100 unit/mL evening. Bran ch injection insulin 2012-04 Yes 6U inject 6 Univer s regular 0-24 Units ity of human 00:00: under the [place] (HUMULIN R) 00 skin every Me dical 100 unit/mL morning. Bran ch injection 2012-04 Yes 1{tbl} Take 1 Tab U nivers vitamin 0-24 by mouth ity of w/FA 00:00: daily. [place] (PRENATABS 00 Medical RX) tablet Branch Immunizations Ordered Filled Immunization Date Status Comments [facility] e Immunization Name Name MMR 2013-02-19 Completed University of 00:00:00 [facility] MMR 2013-02-19 Completed University of 00:00:00 [facility] Rho (d) Immune 2013-02-04 Completed University of Globulin 00:00:00 [facility] Rho (d) Immune 2013-02-04 Completed University of Globulin 00:00:00 [facility] Influenza Virus 2012-12-22 Completed Universit y of Vaccine 00:00:00 [facility] Influenza Virus 2012-12-22 Completed Universit y of Vaccine 00:00:00 [facility] TDAP 2012-11-24 Completed University of 00:00:00 [facility] TDAP 2012-11-24 Completed University of 00:00:00 [facility] Td 2007-12-10 Completed University of 00:00:00 [facility] Td 2007-12-10 Completed University of 00:00:00 [facility] Vital Signs Vital Name Observation Time Observation Value Comments Source Systolic blood 2021-03-14 02:30:00 150 mm[Hg] Univer sity of pressure [facility] Diastolic blood 2021-03-14 02:30:00 94 mm[Hg] Unive rsity of pressure [facility] Heart rate 2021-03-14 02:30:00 92 /min [facility] Body temperature 2021-03-14 02:30:00 37.56 [facility]a [facility] Respiratory rate 2021-03-14 02:30:00 18 /min [facility] Oxygen saturation in 2021-03-14 02:30:00 99 /min [facility] Arterial blood by [facility] Pulse oximetry Branch Body height 2021-03-13 21:02:00 162.6 cm [facility] Body weight 2021-03-13 21:02:00 68.04 kg [facility] BMI 2021-03-13 21:02:00 25.75 kg/m2 [facility] Systolic blood 2020-06-23 23:06:00 126 mm[Hg] Univer sity of pressure [facility] Diastolic blood 2020-06-23 23:06:00 77 mm[Hg] Unive rsity of [facility] Heart rate 2020-06-23 23:06:00 111 /min [facility] Body temperature 2020-06-23 23:06:00 37.39 Dawna [facility] Respiratory rate 2020-06-23 23:06:00 18 /min [facility] Body weight 2020-06-23 23:06:00 59.875 kg [facility] Oxygen saturation in 2020-06-23 23:06:00 100 /min [facility] Arterial blood by [facility] Pulse oximetry Branch Procedures Procedure Date / Time Performed Performing Clinician [facility] e CT ABDOMEN PELVIS W 2021-03-14 00:45:22 Adeola Carlton [facility] CONTRAST [facility] LIPASE 2021-03-13 23:48:00 Adeola Carlton [facility] COMP. METABOLIC PANEL 2021-03-13 23:48:00 [id number] CBC WITH DIFF 2021-03-13 23:48:00 Adeola Carlton [facility] ASSIGNMENT OF BENEFITS 2021-03-13 23:06:35 Doctor Unassigned, No University [facility] Name [facility] URINALYSIS 2021-03-13 21:13:00 Adeola Carlton [facility] POCT TEST 2021-03-13 21:13:00 Adeola Carlton [facility] CONSENT/REFUSAL FOR 2021-03-13 20:53:31 Doctor Unassigned, No [facility] AND Name [facility] TREATMENT XR ANKLE 3+ VW RIGHT 2020-06-23 23:51:15 Rosa Vora [facility] XR FOOT 3+ VW RIGHT 2020-06-23 23:51:15 Rosa Vora [facility] NOTICE OF PRIVACY 2020-06-23 22:57:22 Doctor Unassigned, No Univ [facility] Name [facility] CONSENT/REFUSAL FOR 2020-06-23 22:57:10 Doctor Unassigned, [facility] AND Name [facility] Branch TREATMENT Encounters Start End Encounter Admission Attending Care Care Encounter Source Date/Time Date/Time Type Type Clinicians Facility Department ID 2021-03-13 2021-03-13 Emergency X [facility] ERT [id number] Univers 15:15:00 20:38:00 ADEOLA [facility] 2021-03-13 2021-03-13 Emergency [facility] [id number] Univers 15:15:00 20:38:00 Adeola ALBERT [id number] ity [facility] [id number] [facility] [id number] [address] 2020-06-23 2020-06-23 Emergency [facility] [id number] Univers 17:07:00 18:38:00 Rosa Albert [id number] i [facility] [place] [id number] [place] [facility] [id number] [address] 2020-06-23 2020-06-23 Emergency X [facility] ERT [id number] Univers 17:07:00 17:07:00 [facility] Results Test Description Test Time Test Comments Results Result Comments Source COMP. METABOLIC PANEL (70127) 2021-03-14 00:28:08 Test Item Value Reference Range Interpretation Comme nts NA (test code = 4236686327) 138 mmol/L 135-145 K (test code = 9051342820) 4.2 mmol/L 3.5-5.0 CL (test code = 4277370241) 106 mmol/L 98-108 CO2 TOTAL (test code = 8095903584) 25 mmol/L 23-31 AGAP (test code = 1778844881) 2-16 BUN (test code = 0351744324) 14 mg/dL 7-23 GLUCOSE (test code = 1398413971) 252 mg/dL 70-110 H CREATININE (test code = 0.57 mg/dL 0.50-1.04 4528981363) TOTAL BILI (test code = 0.4 mg/dL 0.1-1.3 3286356910) CALCIUM (test code = 3505757118) 9.3 mg/dL 8.6-10.6 T PROTEIN (test code = 0516919583) 7.2 g/dL 6.3-8.2 ALBUMIN (test code = 1690825405) 3.6 g/dL 3.5-5.0 ALK PHOS (test code = 7960432112) 144 U/L 34-122 H ALTv (test code = 1742-6) 55 U/L 5-35 H AST(SGOT) (test code = 5851118548) 53 U/L 13-40 H eGFR (test code = 9681204442) mL/min/1.73m2 DARON (test code = DARON) Association of Glomerular Filtration Rate (GFR) and Staging of Kidney Disease* + +-------- + ------+| GFR (mL/min/1.73 m2) ?| With Kidney Damage ?| ?Without Kidney Damage+ +-- + +| ?>90 ?| ?Stage one ?| ? Normal ?+ +------- + -------+| ?60-89 ?| ?Stage two ?| ? Decreased GFR ? + +-------- + ------+| ?30-59 ?| ?Stage three ?| ? Stage three ? + +-------- + ------+| ?15-29 ?| ?Stage four ? | ? Stage four ?+ +------- + -------+| ?<15 (or dialysis) ? ?| ?Stage five ? | ? Stage five ?+ +------- + -------+ *Each stage assumes the associated GFR level has been in effect for at least three months. ?Stages 1 to 5, with or without kidney disease, indicate chronic kidney disease. Notes: Determination of stages one and two (with eGFR >59mL/min/1.73 m2) requires estimation of kidney damage for at least three months as defined by structural or functional abnormalities of the kidney, manifested by either:Pathological abnormalities or Markers of kidney damage (including abnormalities in the composition of the blood or urine or abnormalities in imaging tests). Lab Interpretation (test code = Abnormal 95866-9) [facility] 00:28[facility]03 Test Item Value Reference Range Interpretation Comments LIPASE (test code = 7483652970) 191 U/L 0-220 Lab Interpretation (test code = Normal 05929-9) [facility] [id number] 00:16:03 Test Item Value Reference Range Interpretation Comments WBC (test code = See_Comment [Automated 7790-2) message] The sy stem which generated this result transmitted reference range : 4.30 - 11.10 10*3/?L. The reference range was not used to interpret this result as normal/abnormal . RBC (test code = See_Comment [Automated 439-8) message] The sy stem which generated this result transmitted reference range : 3.93 - 5.25 10*6/?L. The reference range was not used to interpret this result as normal/abnormal . HGB (test code = 11.8 g/dL 11.6-15.0 718-7) HCT (test code = 36.7 % 35.7-45.2 4544-3) MCV (test code = 90.8 fL 80.6-95.5 787-2) MCH (test code = 29.2 pg 25.9-32.8 785-6) MCHC (test code = 32.2 g/dL 31.6-35.1 786-4) RDW-SD (test code = 40.8 fL 39.0-49.9 59562-1) RDW-CV (test code = 12.2 % 12.0-15.5 788-0) PLT (test code = See_Comment [Automated 777-3) message] The sy stem which generated this result transmitted reference range : 166 - 358 10*3/ ?L. The reference r josi was not used to interpret this result as normal/abnormal . MPV (test code = 9.9 fL 9.5-12.9 02116-1) NRBC/100 WBC (test See_Comment [Automat ed code = 8563000846) message] The system which generated this result transmitted reference range : 0.0 - 10.0 /100 WBCs. The refer ence range was not u sed to interpret th is result as normal/abnormal . NRBC x10^3 (test code <0.01 See_Comment [Auto mated = 4380421853) message] The s ystem which generated this result transmitted reference range : 10*3/?L. The reference range was not used to interpret this result as normal/abnormal . GRAN MAT (NEUT) % 72.6 % (test code = 770-8) IMM GRAN % (test code 0.70 % = 0354807020) LYMPH % (test code = 16.3 % 736-9) MONO % (test code = 9.4 % 5905-5) EOS % (test code = 0.6 % 713-8) BASO % (test code = 0.4 % 706-2) GRAN MAT x10^3(ANC) 7.38 10*3/uL 1.88-7.09 H (test code = 0712690937) IMM GRAN x10^3 (test 0.07 10*3/uL 0.00-0.06 H code = 2727625930) LYMPH x10^3 (test code 1.65 10*3/uL 1.32-3.29 = 731-0) MONO x10^3 (test code 0.95 10*3/uL 0.33-0.92 H = 742-7) EOS x10^3 (test code = 0.06 10*3/uL 0.03-0.39 711-2) BASO x10^3 (test code 0.04 10*3/uL 0.01-0.07 = 704-7) Lab Interpretation Abnormal (test code = 21158-0) [facility] [id number] 21:13:00 Test Item Value Reference Range Interpretation Comments POCT PREG (test code = 1605) negative On board controls acceptable with present C Line (test code = 3574) POCT PREG LOT # (test code = [id number]) POCT PREG TEST DATE (test 05/15/2022 code = 3576) Lab Interpretation (test code = Normal 66449-2) [facility]"
[2021-03-20 14:47] LABS: Basophils % 0.3 % (0-1.3); Hematocrit 37.1 % (36.0-45.0); Lymphocytes % 12.9 % (15.3-44.8); MPV 7.7 fL (7.6-11.3); RBC Red Blood Cell Count 4.27 M/uL (3.86-4.86)
--- NOTE | 2021-03-20 15:09 | RAD REPORT ---
EXAM DESCRIPTION: US - Abdomen Exam Limited - 03/20/2021 2:56 pm CLINICAL HISTORY: ABD PAIN COMPARISON: Abdomen Pelvis W Contrast dated 07/02/2018 FINDINGS: The gallbladder demonstrates no gallstones. No pericholecystic fluid or gallbladder wall t hickening. The common bile duct is normal measuring 4 mm. Gallbladder is contracted. The liver demonstrates no findings of intrahepatic biliary dilatation. Hepatic steatosis. IMPRESSION: Negative for cholelithiasis or sonographic evidence of acute cholecystitis. Contracted g allbladder. Hepatic steatosis.
[2021-03-20 15:30] LABS: Albumin 2.3 g/dL (3.4-5.0); Bilirubin Direct 0.1 mg/dL (0-0.2); Bilirubin Total 0.3 mg/dL (0.2-1.0)
[2021-03-20 15:32] LABS: Potassium 2.9 mmol/L (3.5-5.1)
[2021-03-20] MEDS ORDERED: POTASSIUM 25 MEQ EFFERV TAB ONE (15:39)
[2021-03-20] MEDS ORDERED: KETOROLAC 30 MG/ML INJ ONE (15:42)
[2021-03-20 16:03] LABS: Blood Morphology Comment NOT SEEN (NOT SEEN); Platelet Estimate INCR; White Blood Cell Scan OK (OK)
[2021-03-20 16:13] LABS: Urine Blood 2+ (Negative); Urine Glucose Negative (Negative); Urine Protein 2+ (Negative); Urine Specific Gravity 1.025 (1.005-1.030)
[2021-03-20] MEDS ORDERED: NA CHLORIDE 0.9% 1,000 ML ONE (16:17)
[2021-03-20 16:23] LABS: Urine Specific Gravity/Preg 1.025 (1.005-1.030)
--- NOTE | 2021-03-20 16:30 | RAD REPORT ---
EXAM DESCRIPTION: CTAbdomen Pelvis W Contrast - 03/20/2021 4:15 pm CLINICAL HISTORY: ABD PAIN COMPARISON: Abdomen Pelvis W Contrast dated 07/02/2018 TECHNIQUE: CT of the abdomen and pelvis was performed. All CT scans are performed using dose optimization technique as appropriate and may include automated exposure control or mA/KV adjustment according to patient size. FINDINGS: Lower chest: No acute abnormality. Liver: No acute abnormality or suspicious lesions. Biliary: No biliary ductal dilatation. Stomach: No significant focal abnormality. Duodenum: No significant focal abnormality. Pancreas: No significant abnormality. Spleen: No significant abnormality. Adrenal: No suspicious lesions. Kidney/ureter: No hydronephrosis. No renal calculi. Retroperitoneum: No retroperitoneal adenopathy. Vascular: No aneurysm. Bowel: Diffuse small bowel wall thickening and hyperenhancement. No bowel obstruction is identified.. Appendix not identified. Peritoneum: Small volume of free fluid. Bladder: Trace bladder gas with bladder wall thickening. Reproductive: No adnexal masses. Bones: No acute fracture. Other: n/a IMPRESSION: Diffuse small bowel wall thickening and hyperenhancement concerning for enteritis with d ifferential to include infectious inflammatory etiologies including inflammatory bowel disease. No ap pendix identified. Bladder wall thickening and hyperenhancement with trace gas suspicious for cystitis. Correlate with u rinalysis.
--- NOTE | 2021-03-20 16:37 | ER ---
Nurse's Notes [facility] Name: Kristan Townsend Age: 30 yrs Sex: Female : 1990 Arrival Date: 03/20/2021 Time: 14:18 Bed Treatment Private MD: Diagnosis: UTI/ Urinary tract infection, site not specified;ENTERITIS;Hypokalemia Presentation: 03/20 14:34 Chief complaint: Patient states: lower abd pain radiating upward since last week, was iw seen at [place] [facility] Saturday and they did a CT, did not see anything, was given tramdol but pain is worse, now vomiting, also has pain with urination, is diabetic, sugars have been high. Coronavirus screen: Client presents with at least one sign or symptom that may indicate coronavirus-19. Ebola Screen: Patient negative for fever greater than or equal to 101.5 degrees Fahrenheit, and additional compatible Ebola Virus Disease symptoms Patient denies exposure to infectious person. Patient denies travel to an Ebola-affected area in the 21 days before illness onset. No symptoms or risks identified at this time. Initial Sepsis Screen: Does the patient meet any 2 criteria? No. Patient's initial sepsis screen is negative. Does the patient have a suspected source of infection? No. Patient's initial sepsis screen is negative. Risk Assessment: Do you want to hurt yourself or someone else? Patient reports no desire to harm self or others. Onset of symptoms was March 13, 2021. 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 - Social history:: Smoking status: Patient denies any tobacco usage or history of. Screenin:42 Abuse screen: Denies threats or abuse. Denies injuries from another. Nutritional ld1 screening: No deficits noted. Tuberculosis screening: No symptoms or risk factors identified. Fall Risk None identified. Assessment: 14:42 General: Appears in no apparent distress. uncomfortable, Behavior is calm, cooperative, ld1 appropriate for age. Pain: Complains of pain in abdomen Pain does not radiate. Pain currently is 8 out of 10 on a pain scale. Quality of pain is described as throbbing, Pain began gradually, Is intermittent. Neuro: Level of Consciousness is awake, alert, obeys commands, Oriented to person, place, time, situation. Cardiovascular: Capillary refill < 3 seconds Patient's skin is warm and dry. Respiratory: Airway is patent Respiratory effort is even, unlabored, Respiratory pattern is regular, symmetrical. GI: Abdomen is flat, non-distended, Bowel sounds present X 4 quads. Abd is soft Abdomen is tender to palpation Reports lower abdominal pain, upper abdominal pain, nausea, vomiting. : No signs and/or symptoms were reported regarding the genitourinary system. EENT: No signs and/or symptoms were reported regarding the EENT system. Derm: No signs and/or symptoms reported regarding the dermatologic system. Musculoskeletal: No signs and/or symptoms reported regarding the musculoskeletal system. 15:45 Reassessment: Patient appears in no apparent distress at this time. Patient and/or ld1 family updated on plan of care and expected duration. Pain level reassessed. Patient is alert, oriented x 3, equal unlabored respirations, skin warm/dry/pink. Vital Signs: 14:34 BP 132 / 85; Pulse 118; Resp 18 S; Pulse Ox 98% on R/A; Weight 68.04 kg; Height 5 ft. 4 iw in. (162.56 cm); Pain 10/10; 14:42 BP 129 / 86; Pulse 111; Resp 18; Pulse Ox 99% on R/A; Pain 8/10; ld1 15:45 BP 131 / 82; Pulse 105; Resp 18; Pulse Ox 100% on R/A; Pain 7/10; ld1 14:34 Body Mass Index 25.75 (68.04 kg, 162.56 cm) iw ED Course: 14:18 Patient arrived in ED. as 14:27 Renae Raya RN is Primary Nurse. ld1 14:28 Lili Rogers FNP-C is PHCP. kb 14:28 Zach Hare MD is Attending Physician. kb 14:36 Triage completed. iw 14:36 Arm band placed on. iw 14:42 Patient has correct armband on for positive identification. Placed in gown. Bed in low ld1 position. Call light in reach. Side rails up X2. Pulse ox on. NIBP on. Door closed. Noise minimized. Warm blanket given. 14:42 No provider procedures requiring assistance completed. Inserted saline lock: 20 gauge ld1 in left antecubital area, using aseptic technique. Blood collected. 14:56 US Abdomen Limited In Process Unspecified. EDMS 16:15 CT Abd/Pelvis - IV Contrast Only In Process Unspecified. EDMS 17:30 IV discontinued, intact, bleeding controlled, No redness/swelling at site. ld1 Administered Medications: 15:42 Drug: Potassium Effervescent Tablet 50 mEq Route: PO; iw 15:44 Follow up: Response: No adverse reaction ld1 15:44 Drug: Ketorolac 15 mg Route: IVP; Site: left antecubital; ld1 15:44 Follow up: Response: No adverse reaction ld1 16:53 Drug: NS 0.9% 1000 ml Route: IV; Rate: 1000 ml; Site: left antecubital; ld1 16:53 Drug: Flagyl (metroNIDAZOLE) 500 mg Route: PO; ld1 16:53 Drug: Cipro (ciprofloxacin) 500 mg Route: PO; ld1 16:53 Drug: SOLU-Medrol (methylPrednisoLONE) 125 mg Route: IVP; Site: left antecubital; ld1 Outcome: 16:36 Discharge ordered by . kb 17:30 Discharged to home ambulatory. ld1 17:30 Condition: stable 17:30 Discharge instructions given to patient, Instructed on discharge instructions, follow up and referral plans. medication usage, Demonstrated understanding of instructions, follow-up care, medications, Prescriptions given X 4. 17:30 Patient left the ED. ld1 Addendum: 03/25/2021 07:17 Addendum: Culture Results: Positive urine culture. No further action required. Bacteria e b sensitive to prescribed antibiotic. Signatures: Dispatcher [employer] EDMS Lili Rogers, SB ENVIRONMENTAL ENGINEER SCIENTIST-Jennifer Flores Irene, RN RN iw Chavez, Michaelle eb Dibbern, Renae, RN RN ld1
--- NOTE | 2021-03-20 16:37 | EDPHYS ---
Physician Documentation [facility] Name: Kristan Townsend Age: 30 yrs Sex: Female : 1990 Arrival Date: 03/20/2021 Time: 14:18 Bed Treatment Private MD: SAURABH Physician Zach Hare HPI: 03/20 16:08 This 30 yrs old Female presents to ER via Ambulatory with complaints of kb Abdominal Pain, Vomiting, Shortness Of Breath. 16:08 The patient presents with abdominal pain in the upper abdomen. Onset: The kb symptoms/episode began/occurred 10 day(s) ago. The symptoms do not radiate. Associated signs and symptoms: Pertinent positives: nausea and vomiting, Pertinent negatives: fever. The symptoms are described as constant. Modifying factors: The symptoms are alleviated by nothing, the symptoms are aggravated by nothing. Severity of pain: At its worst the pain was moderate in the emergency department the pain is unchanged. The patient has not experienced similar symptoms in the past. The patient has not recently seen a physician. Patient reports abdominal pain that started 10 days ago. States pain started in lower abdomen and now has moved to upper abdomen. Reports nausea and vomiting as well.. 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 - Social history:: Smoking status: Patient denies any tobacco usage or history of. ROS: 16:07 Constitutional: Negative for fever, chills, and weight loss. kb 16:07 Abdomen/GI: Positive for abdominal pain, nausea and vomiting. 16:07 All other systems are negative. Exam: 16:07 Constitutional: This is a well developed, well nourished patient who is awake, alert, kb and in no acute distress. Head/Face: Normocephalic, atraumatic. ENT: Moist Mucous membranes Respiratory: Respirations even and unlabored. No increased work of breathing. Talking in full sentences Skin: Warm, dry with normal turgor. Normal color. MS/ Extremity: Pulses equal, no cyanosis. Neurovascular intact. Full, normal range of motion. Neuro: Awake and alert, GCS 15, oriented to person, place, time, and situation. Moves all extremities. Normal gait. Psych: Awake, alert, with orientation to person, place and time. Behavior, mood, and affect are within normal limits. 16:07 Abdomen/GI: Inspection: abdomen appears normal, Bowel sounds: normal, in all quadrants, Palpation: soft, in all quadrants, moderate abdominal tenderness, in the right upper quadrant and left upper quadrant. Vital Signs: 14:34 BP 132 / 85; Pulse 118; Resp 18 S; Pulse Ox 98% on R/A; Weight 68.04 kg; Height 5 ft. 4 iw in. (162.56 cm); Pain 10/10; 14:42 BP 129 / 86; Pulse 111; Resp 18; Pulse Ox 99% on R/A; Pain 8/10; ld1 15:45 BP 131 / 82; Pulse 105; Resp 18; Pulse Ox 100% on R/A; Pain 7/10; ld1 14:34 Body Mass Index 25.75 (68.04 kg, 162.56 cm) iw MDM: 14:28 Patient medically screened. kb 16:07 Data reviewed: vital signs, nurses notes. Data interpreted: Pulse oximetry: on room air kb is 100 %. Interpretation: normal. 16:35 Counseling: I had a detailed discussion with the patient and/or guardian regarding: the kb historical points, exam findings, and any diagnostic results supporting the discharge/admit diagnosis, lab results, radiology results, the need for outpatient follow up, a family practitioner, to return to the emergency department if symptoms worsen or persist or if there are any questions or concerns that arise at home. 03/20 14:31 Order name: Basic Metabolic Panel; Complete Time: 15:41 kb 03/20 14:31 Order name: CBC with Diff; Complete Time: 16:07 kb 03/20 14:31 Order name: Hepatic Function; Complete Time: 15:41 kb 03/20 14:31 Order name: Lipase; Complete Time: 15:41 kb 03/20 16:03 Order name: CBC Smear Scan; Complete Time: 16:07 EDMS 03/20 16:12 Order name: Urine Dipstick-Ancillary; Complete Time: 16:14 EDMS 03/20 14:31 Order name: US Abdomen Limited; Complete Time: 15:12 kb 03/20 15:13 Order name: CT Abd/Pelvis - IV Contrast Only; Complete Time: 16:33 kb 03/20 16:13 Order name: Urine --Ancillary (enter results) bd 03/20 16:14 Order name: Urine --Ancillary; Complete Time: 16:24 EDMS 03/20 16:14 Order name: Urine Microscopic Only kb 03/20 16:49 Order name: Urine Culture EDMS 03/20 14:31 Order name: IV Saline Lock; Complete Time: 14:42 kb 03/20 14:31 Order name: Labs collected and sent; Complete Time: 14:42 kb 03/20 16:01 Order name: Urine Dipstick-Ancillary (obtain specimen); Complete Time: 16:10 kb 03/20 16:01 Order name: Urine Test (obtain specimen); Complete Time: 16:10 kb Administered Medications: 15:42 Drug: Potassium Effervescent Tablet 50 mEq Route: PO; iw 15:44 Follow up: Response: No adverse reaction ld1 15:44 Drug: Ketorolac 15 mg Route: IVP; Site: left antecubital; ld1 15:44 Follow up: Response: No adverse reaction ld1 16:53 Drug: NS 0.9% 1000 ml Route: IV; Rate: 1000 ml; Site: left antecubital; ld1 16:53 Drug: Flagyl (metroNIDAZOLE) 500 mg Route: PO; ld1 16:53 Drug: Cipro (ciprofloxacin) 500 mg Route: PO; ld1 16:53 Drug: SOLU-Medrol (methylPrednisoLONE) 125 mg Route: IVP; Site: left antecubital; ld1 Disposition: 03/21 07:05 Co-signature as Attending Physician, Zach Hare MD I agree with the assessment and danny plan of care. Disposition Summary: 03/20/21 16:36 Discharge Ordered Location: Home kb Condition: Stable kb Diagnosis - UTI/ Urinary tract infection, site not specified kb - ENTERITIS kb - Hypokalemia kb Followup: kb - With: Emergency Department - When: As needed - Reason: Worsening of condition Followup: kb - With: Private Physician - When: 2 - 3 days - Reason: Recheck today's complaints, Continuance of care, Re-evaluation by your physician Discharge Instructions: - Discharge Summary Sheet kb - Viral Gastroenteritis, Adult, [id number] kb - Urinary Tract Infection, Adult, [id number] kb Forms: - Medication Reconciliation Form kb - Thank You Letter kb - Antibiotic Education kb - Prescription Opioid Use kb Prescriptions: - Cipro 500 mg Oral Tablet - take 1 tablet by ORAL route every 12 hours for 10 days; 20 tablet; Refills: 0, kb Product Selection Permitted - Flagyl 500 mg Oral Tablet - take 1 tablet by ORAL route every 8 hours for 10 days; 30 tablet; Refills: 0, kb Product Selection Permitted - Zofran 4 mg Oral Tablet - take 1 tablet by ORAL route every 6 hours As needed; 20 tablet; Refills: 0, kb Product Selection Permitted - dicyclomine 20 mg Oral Tablet - take 1 tablet by ORAL route 4 times per day As needed; 20 tablet; Refills: 0, kb Product Selection Permitted Signatures: Dispatcher [employer] EDLili Rush FNP-C FNP-Zach Garcia MD MD cha Williams, Irene, GABRIELA OCHOA iw Renae Raya RN RN ld1 Corrections: (The following items were deleted from the chart) 03/20 16:07 16:07 Abdomen/GI: Positive for abdominal pain, Negative for nausea, vomiting, and kb diarrhea, kb
[2021-03-20 16:48] LABS: Urine Bacteria LOADED /HPF (<20); Urine RBC <5 /HPF (NONE SEEN)
[2021-03-20] MEDS ORDERED: CIPROFLOXACIN HCL 500 MG TAB ONE (16:50)
[2021-03-20] MEDS ORDERED: METHYLPREDNISOLONE 125 MG INJ ONE (16:50)
[2021-03-20] MEDS ORDERED: metroNIDAZOLE 500 MG TABLET ONE (16:50)
[2021-03-20 17:47] VITALS: BP 131/82; O2SAT 100
== END 2021-03-20 17:30 | disposition home or self-care (01) ==
LOC: ER 14:17
DX: N39.0 Urinary tract infection, site not specified (principal); K52.9 Noninfective gastroenteritis and colitis, unspecified; E87.6 Hypokalemia; E11.9 Type 2 diabetes mellitus without complications; Z79.4 Long term (current) use of insulin
CPT/HCPCS: 36415; 74177; 76705; 80048; 80076; 81003; 81015; 81025; 83690; 85025; 87077; 87086; 87088; 87186; 96374; 96375; 99284; J2930; J7030; Q9967

== ENCOUNTER 2023-10-01 12:28 | Emergency (ER) | payer OTHER ==
--- OUTSIDE RECORDS SUMMARY | 2023-10-01 12:35 | XMS REPORT | Continuity of Care Document ---
Author Name Unknown Address [address] [facility] [address] [place] [address] [facility] Address [address] [facility] [address] [place] [address] Care Team Providers Care Manager Financial Services Name Role Phone Yash [facility] Primary Care Physician CAROL ANN MORGAN Attending Clinician Unavailable Mfm, Fellow 2 Attending Clinician Unavailable Laisha Rangel DO Attending Clinician [phone] Ob High Risk, Utpb Attending Clinician Unavailab JUDY Boland Attending Clinician Unavailable DENISHA HERNANDEZ Attending Clinician Unavailable Merissa Bueno MD Attending Clinician [phone] JUAN MASON Attending Clinician Unavailable Juan Pisano Attending Clinician [phone] Lyle MORGAN [facility] Jose STALLINGS Attending Clinician DANA REYNAGA Attending Clinician Unavailable Dana Reynaga MD Attending Clinician [phone] ADEOLA CARLTON Attending Clinician UnavailAdeola Gutierrez Attending Clinician Daniel Edwards Attending Clinician [phone] DANIEL VORA Attending Clinician Unavailable DANA REYNAGA Admitting Clinician Unavailable ADEOLA CARLTON Admitting Clinician Unavailmel goncalves Payers Payer Name Policy Type Policy Number Effective Date Expirati on Date Source [facility] MEDICAID STAR [id number] 2023 00:00:00 [employer] [id number] 2012 00:00:00 [employer] [place] - OUT OF STATE [id number] 2016 00:00:00 Problems Condition Name Condition Details Condition Category Status Onset Date Resolution Date Last Treatment Date Treating Clinician Comments Source Type 1 diabetes mellitus without complicati on Type 1 diabetes mellitus without complicati on Disease Active 09-01 00:00: 00 Overview: Formattin g of this note might be different from the original. Diabetes History- Duration of DM: Diagnosed 2002 at 12yo- Pre regimen: Novolin 70/30 - 25u AM/30u PM, Novolog 70/30 10u TID- DM Complicat ions: Diabetic retinopat hy, has follow-up with Ophtho in 6 wksMatern al Evaluatio n:Materna l EKG: ordered 09/02/23M aternal Echo (if DM x >10 years or maternal age >35): ordered 09/02/23O pthalmolo gy referral date: 09/02/23N utrition referral date: 09/02/23T SH [ ] ordered 09/02/23P neumococc al vaccine [ ]Pregnanc y StudiesBa seline Urine P/C ratio and GA: 10wks 24hr urine protein 810 (in outside media)Bas faye HbA1C and date or GA: 06/18/23 - 9.2Subseq uent HbA1C as needed: ordered 09/02/23F etal Anatomy doneFetal Echo: done wnlMSAFP MOM: Current Regimen: 09/15: Lantus 15 units BID and Novolog 6-7 units TID (continue to use sliding scale) --> 09/25 Lantus 20u BID Novolog 10u TID with correctio n factor 1 unit for every 40 points over. Blood glucose logs: - Fastin-362 - Breakfast 2hr: 88-277 - Lunch 2hr: 65-479 - Dinner 2hr: 76-305Dex com 7 placed 09/15 Sample g7 sensor given Lot number [id number] 1; expiratio n date 4 Discussed insulin pump therapy. Pt intereste d in insulin pump Tandem X2. Paper work initiated Plan:Gluc ose log, fasting and 1 or 2 hour PP glucose testing per provider preferenc Za ASA 81mg dailySeri al Growth US Results here: (%ile, MVP only, AC %ile if >95th)Ant enatal testing starting at 32 weeks (BPP/NST) Delivery Plan: Decide at 35 weeks or afterWell controlle d: 39 weeksPoor control (Elevated BG in logs, polyhydra mnios (MVP >8), EFW >90th%ile , AC >95th%ile , elevated HbA1C)Vas cular complicat ions (renal disease, retinopat hy requiring treatment , diabetic neuropath y, coronary artery disease/a ngina)Del iver at 37-38 weeks per MFM Last Assessmen t & Plan: Formattin g of this note might be different from the original. -Current regimen: Novolog 70/30-Blo od sugar log reviewed: - Fastin-362 - Breakfast 2hr: 88-277 - Lunch 2hr: 65-479 - Dinner 2hr: 76-305-S/ p Diabetes Counsling , to start Lantus 15u BID and Novolog 6-7u before meals-Oph tho appointme nt on 09/20/23 [facility] Chronic hypertensi on affecting Chronic hypertensi on affecting Disease Active 2023- 5- 00:00: 00 Overview: Formattin g of this note might be different from the original. Current Regimen: Procardia 30mg diaiyDiag nosed Year- 3Prepr egnancy regimen- Procardia 30mg dailyBase line U PCr and Gestation age: 10wks, 24hr urine protein 810Prior History of Gestation al HTN?: NoHTN >10 years - consider EKG or echo: EKG ordered 09/02/23O ther CHTN complicat ions: noneBP Logs: 120-130/8 0sPlan - Compliant with Baby ASA- BP Goal 130-149/7 0-90s - adjust/st art medicatio ns as needed- Weekly testing starting at 32 weeks- Delivery at 38-39 weeks depending on BP control Last Assessmen t & Plan: Formattin g of this note might be different from the original. -Current regimen: Procardia 30mg every day-Blood pressure log reviewed, blood pressures 120-150/8 0-90s (elevated bps noted to be prior to Procardia 30mg)-Asy mptomatic -Normoten sive today in clinic [facility] Chlamydia trachomati s infection Chlamydia trachomati s infection Disease Active 09-01 00:00: 00 Overview: Formattin g of this note might be different from the original. - Tested pos 06/2023, s/p tx with Azithromy kin- BLAYNE 09/02/23 negLast Assessmen t & Plan: Formattin g of this note might be different from the original. -Neg BLAYNE on 09/02/23 [facility] Rh negative state in antepartum period Rh negative state in antepartum period Disease Active 09-01 00:00: 00 Overview: Formattin g of this note might be different from the original. - Will need Rhogam at 28wksLast Assessmen t & Plan: Formattin g of this note might be different from the original. -For Rhogam at 28w [facility] History of pre-eclamp glenda in prior , currently History of pre-eclamp glenda in prior , currently Disease Active 09-01 00:00: 00 [facility] Disease Active 09-01 00:00: 00 Overview: Formattin g of this note might be different from the original. BLAYNE [facility] CRL PNL: Blood Type A neg,Ab neg, Hgb 11.1 Plt 365RPR NR, HIV neg, HBSag neg, Hep C neg, Rubella immuneGC/ CT neg/pos --> BLAYNE 09/01 negLast Pap - 06/2023 Result: NILM, HRHPV negNIPT low risk per patient reportBCM : undecided Anatomy US: ordered 09/15: anterior placenta, MVP 5.4, NASIR 18, EFW 531g (73%tile) , CL wnl, screening echo wnlGrowth US: Next 10/27[ ] Tdap[ ] 3T labs[ ] 36 week GC [ ] GBS Last Assessmen t & Plan: Formattin g of this note might be different from the original. - Dated by 10wk CRL- NIPT low risk per patient report- Anatomy sono ordered [facility] Insertion of implantabl e subdermal contracept kelsy Insertion of implantabl e subdermal contracept kelsy Disease Active 2012-04 00:00: 00 Overview: Formattin g of this note might be different from the original. Exp. 6. [facility] Type 1 diabetes mellitus Type 1 diabetes mellitus Disease Active 2012-04 00:00: 00 Overview: Formattin g of this note might be different from the original. 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 [facility] Allergies, Adverse Reactions, Alerts Allergy Name Allergy Type Status Severity Reaction(s) Onset Date Inactive Date Treating Clinician Comments Source NO KNOWN ALLERGIE S Drug Class Active [facility] Social History Social Habit Start Date Stop Date Quantity Comments Source ASSERTION 2023-04-28 00:00:00 [facility] Sexual orientation [facility] Exposure to SARS-CoV-2 (event) Not sure [facility] Tobacco use and exposure 2023-09-02 00:00:00 2023-09-02 00:00:00 Smokeless tobacco non-user [facility] Alcoholic beverage intake 2023-09-02 00:00:00 2023-09-02 00:00:00 Ex-drinker (finding) [facility] History of Social function 2023-09-02 00:00:00 2023-09-02 00:00:00 [facility] Alcohol Comment 2023-09-02 00:00:00 2023-09-02 00:00:00 Ocassionally [facility] Alcohol intake 2023-07-31 00:00:00 2023-07-31 00:00:00 Current non-drinker of alcohol (finding) [facility] Sex assigned at 1990 00:00:00 1990 00:00:00 [facility] Smoking Status Start Date Stop Date Source Never smoked tobacco [facility] Medications Ordered Medication Name Filled Medication Name Start Date Stop Date Current Medication? Ordering Clinician Indication Dosage Frequency Signature (SIG) Comments Components Source NIFEdipine XL (Procardia XL) 30 MG 24 hr tablet 09-25 00:00: 00 09-26 04:59 :00 Yes [id number] 30mg QD Take 1 tablet (30 mg total) by mouth 1 (one) time each day. Do not crush, chew, or split. [facility] aspirin 81 MG chewable tablet 09-25 00:00: 00 09-26 04:59 :00 Yes [id number] 81mg QD Chew 1 tablet (81 mg total) 1 (one) time each day. [facility] insulin aspart (NovoLOG FLEXPEN) 100 UNIT/ML injection 09-15 00:00: 00 09-08 04:59 :00 Yes [id number] 6U Inject 6 Units under the skin in the morning and 6 Units at noon and 6 Units in the evening. Inject with meals. [facility] insulin glargine (Lantus) 100 UNIT/ML injection 09-15 00:00: 00 09-16 04:59 :00 Yes [id number] 15U Q.5D Inject 15 Units under the skin in the morning and 15 Units in the evening. [facility] Procardia XL 30 mg tablet,exte nded release 08-14 00:00: 00 Yes 1mg Francois Marks mupirocin 2 % ointment 12 00:00: 00 Yes [id number] Apply to area(s) 3 (three) times daily. [facility] Blood-Gluco se Sensor (DEXCOM G7 SENSOR) Sonia 07-24 00:00: 00 Yes [id number] Use as directed [facility] amoxicillin (TRIMOX) capsule 500 mg 07-23 07:15: 00 07-23 07:10 :00 No 500mg 500 mg, Oral, ONCE, 1 dose, On Sat07/24/23 at 0215, ANSHU
Re ason for Anti-Infec tive: Documented Infection< br>Documen rashmi Infection Site: Urine
D uration of Therapy: Once (ED) [facility] KCL (KLOR-CON M20) tablet 40 mEq 07-23 05:45: 00 07-23 04:48 :00 No 40meq 40 mEq, Oral, ONCE, 1 dose, On Sat07/24/23 at 0045, Routine [facility] potassium chloride in water 10 mEq/100 mL RTU 10 mEq 07-23 05:30: 00 07-23 05:50 :00 No 10meq 10 mEq, IV Piggyback, ONCE, 1 dose, On Sat07/24/23 at 0030, Administer over 60 Minutes, 100 mL [facility] D5W 0.45% NaCl (1/2NS) IV infusion 1,000 mL 07-23 04:45: 00 Yes 1000mL at 150 mL/hr, 1,000 mL, IV Infusion, CONTINUOUS , Starting on Sat07/23/23 at 2345, Until Discontinu ed, ANSHU [facility] dextrose 50 % in water (D50W) injection 50 mL 07-23 04:30: 00 07-23 03:30 :00 No 50mL 50 mL, Slow IV Push, ONCE, 1 dose, On Sat07/23/23 at 2330, STAT [facility] TAKE 1 CAPSULE BY MOUTH IN THE MORNING AND 1 AT NOON AND 1 IN THE EVENING 07-23 00:00: 00 Yes Francois Marks amoxicillin 500 mg capsule 07-23 00:00: 00 07-23 00:00 :00 Yes [id number] 500mg Take 1 capsule by mouth in the morning and 1 capsule at noon and 1 capsule in the evening. [facility] NIFEdipine XL 30 mg 24 hr tablet 07-04 00:00: 00 Yes 30mg Take 1 tablet by mouth. [facility] AMOX/K CLAV 115-021 3696-0 3-11 00:00: 00 Yes Francois Marks amoxicillin -pot clavulanate 500 mg 500-125 mg tablet 06-23 00:00: 00 07-24 00:00 :00 No 500mg Take 1 tablet by mouth. [facility] Augmentin 500 mg-125 mg tablet 06-22 00:00: 00 Yes 1mg Francois Marks metronidazo le 500 mg tablet 06-20 00:00: 00 Yes 1mg Francois Marks azithromyci n 500 mg tablet 06-20 00:00: 00 Yes 2mg Francois Marks AZITHROMYCI N 500MG 06-20 00:00: 00 Yes Francois Marks NITROFUR MON 100MG 06-17 00:00: 00 Yes Francois Marks TAKE 1 CAPSULE TWICE DAILY. 06-17 00:00: 00 08-14 00:00 :00 No 100 Francois Marks Novolin 70-30 FlexPen U-100 Insulin 100 unit/mL (70-30) subcutaneou s 06-16 00:00: 00 Yes unit/mL (70-30) Francois Marks Novolog Mix 70-30 U-100 Insulin 100 unit/mL subcutaneou s solution 06-16 00:00: 00 Yes unit/mL (70-30) Francois Marks aspirin 81 mg tablet,heath yed release 06-16 00:00: 00 Yes 1mg Francois Marks Procardia XL 30 mg tablet,exte nded release 06-16 00:00: 00 Yes 1mg Francois Marks USE IF BLOOD GLUCOSE IS BELOW 60 06-16 00:00: 00 Yes [id number] Francois Marks NOVOLOG 100U/ML VIA 06-10 00:00: 00 Yes Francois Marks NovoLIN 70/30 (70-30) 100 UNIT/ML injection 06-06 00:00: 00 Yes Inject under the skin. [facility] NIFEdipine XL (Procardia XL) 30 MG 24 hr tablet 06-06 00:00: 00 Yes [facility] aspirin 81 MG EC tablet 06-06 00:00: 00 Yes [facility] INJECT 10 UNITS 3 TIMES A DAY BEFORE MEALS 06-06 00:00: 00 Yes 100 Francois Marks INJECT 25 UNITS IN AM AND 30 UNITS IN PM 2024-0 2-22 00:00: 00 Yes [id number] Francois Marks TAKE 1 TABLET DAILY. 0 2-22 00:00: 00 08-14 00:00 :00 No 30 Francois Marks INJECT 10 UNITS 3 TIMES A DAY BEFORE MEALS 0 9-12 00:00: 00 08-14 00:00 :00 No 100 Francois Marks TAKE 1 TABLET DAILY. 0 7-22 00:00: 00 08-14 00:00 :00 No 25 Francois Marks TAKE 1 TABLET DAILY. 0 6-22 00:00: 00 08-14 00:00 :00 No 25 Francois Marks INJECT 25 UNITS IN AM AND 30 UNITS IN PM 0 6- 00:00: 00 08-14 00:00 :00 No [id number] Francois Marks INJECT 10 UNITS 3 TIMES A DAY BEFORE MEALS 0 6- 00:00: 00 08-14 00:00 :00 No 100 Francois Marks INSTILL 1 DROP INTO LEFT EYE 4 TIMES DAILY FOR 7 DAYS THEN STOP SHAKE BOTTLE WELL 0 5-04 00:00: 00 Yes Francois Marks TAKE 1 TABLET BY MOUTH 4 TIMES DAILY NEEDED 0 8-23 00:00: 00 Yes Francois Marks Dose Unknown 0 4-13 00:00: 00 Yes Francois Marks Dose Unknown 0 4-13 00:00: 00 Yes Francois Marks Dose Unknown 0 4-13 00:00: 00 Yes Francois Marks dicyclomine (BENTYL) tablet 20 mg 2020-04 02:45: 00 03-14 02:45 :00 No 20mg 20 mg, Oral, ONCE, 1 dose, On Sat03/13/21 at 2045, ANSHU [facility] ketorolac (TORADOL) injection 30 mg 2020-04 02:45: 00 03-14 01:56 :00 No 30mg 30 mg, Slow IV Push, ONCE, 1 dose, On Sat03/13/21 at 2045, Routine
store team member approving Restricted medication : ADEOLA CARLTON [facility] iopamidol (ISOVUE 370-500 mL) injection 120 mL 2020-04 00:40: 00 03-14 00:40 :00 No [id number] 120mL 120 mL, Intravenou s, ONCE, 1 dose, On Sat03/13/21 at 1900, Routine [facility] NaCl 0.9% (NS) bolus infusion 1,000 mL 2020-04 22:30: 00 03-14 02:25 :00 No 1000mL at 999 mL/hr, 1,000 mL, IV Infusion, ONCE, 1 dose, On Sat03/13/21 at 1630, ANSHU [facility] traMADoL 50 mg tablet 2020-04 00:00: 00 07-24 00:00 :00 No [id number] 50mg Take 1 tablet by mouth every 6 (six) hours as needed for Pain (scale 7-10). Indication s: acute pain [facility] Dose Unknown 2020-04 00:00: 00 Yes Francois Marks clindamycin HCl 300 mg capsule 10-04 00:00: 00 Yes 1mg Francois Marks silver sulfadiazin e 1 % topical cream 09-21 00:00: 00 Yes 1% Francois Marks sulfamethox azole 800 mg-trimetho prim 160 mg tablet 09-21 00:00: 00 Yes 1mg Francois Marks mupirocin 2 % topical ointment 08-24 00:00: 00 Yes 1% Francois Marks Macrobid 100 mg capsule 08-24 00:00: 00 Yes 1mg Francois Marks Dose Unknown 05-21 00:00: 00 Yes Francois Marks Bromfed DM 2 mg-30 mg-10 mg/5 mL oral syrup 05-21 00:00: 00 Yes 10mg/5 mL Francois Marks Dose Unknown 09-17 00:00: 00 Yes Francois Marks Dose Unknown 09-17 00:00: 00 Yes Francois Marks Novolog Mix 70-30 U-100 Insulin 100 unit/mL subcutaneou s solution 2018-0 6-05 00:00: 00 Yes 30unit/ mL (70-30) Francois Marks vitamin w/FA (PRENATABS RX) tablet 2012-04 00:00: 00 Yes 1{tbl} Take 1 Tab by mouth daily. [facility] vitamin w/FA (PRENATABS RX) tablet 2012-04 00:00: 00 Yes 1{tbl} Take 1 Tab by mouth daily. [facility] insulin NPH (HUMULIN N) 100 unit/mL injection 2012-04 00:00: 00 07-24 00:00 :00 No 11U inject 11 Units under the skin every evening. [facility] insulin NPH (HUMULIN N) 100 unit/mL injection 2012-04 00:00: 00 07-24 00:00 :00 No 12U inject 12 Units under the skin every morning. [facility] insulin regular human (HUMULIN R) 100 unit/mL injection 2012-04 00:00: 00 07-24 00:00 :00 No 12U inject 12 Units under the skin every evening. [facility] insulin regular human (HUMULIN R) 100 unit/mL injection 2012-04 00:00: 00 07-24 00:00 :00 No 6U inject 6 Units under the skin every morning. [facility] Immunizations Ordered Immunization Name Filled Immunization Name Date Status Comments Source MMR 2013-02-19 00:00:00 Completed [facility] MMR 2013-02-19 00:00:00 Completed [facility] Rho (d) Immune Globulin 2013-02-04 00:00:00 Completed [facility] Rho (d) Immune Globulin 2013-02-04 00:00:00 Completed [facility] Influenza Virus Vaccine 2012-12-22 00:00:00 Completed [facility] Influenza Virus Vaccine 2012-12-22 00:00:00 Completed [facility] TDAP 2012-11-24 00:00:00 Completed [facility] TDAP 2012-11-24 00:00:00 Completed [facility] Td 2007-12-10 00:00:00 Completed [facility] Td 2007-12-10 00:00:00 Completed [facility] TD, NOS Unknown Completed [facility] TDAP Unknown Completed [facility] Influenza Virus Vaccine Unknown Completed [facility] Rho (d) Immune Globulin Unknown Completed [facility] MMR Unknown Completed [facility] TD, NOS Unknown Completed [facility] TDAP Unknown Completed [facility] Influenza Virus Vaccine Unknown Completed [facility] Rho (d) Immune Globulin Unknown Completed [facility] MMR Unknown Completed [facility] TD, NOS Unknown Completed [facility] TDAP Unknown Completed [facility] Influenza Virus Vaccine Unknown Completed [facility] Rho (d) Immune Globulin Unknown Completed [facility] MMR Unknown Completed [facility] TD, NOS Unknown Completed [facility] TDAP Unknown Completed [facility] Influenza Virus Vaccine Unknown Completed [facility] Rho (d) Immune Globulin Unknown Completed [facility] MMR Unknown Completed [facility] TD, NOS Unknown Completed [facility] TDAP Unknown Completed [facility] Influenza Virus Vaccine Unknown Completed [facility] Rho (d) Immune Globulin Unknown Completed [facility] MMR Unknown Completed [facility] Vital Signs Vital Name Observation Time Observation Value Comments S ource Body height 2023-09-26 20:01:00 162.6 cm [facility] Systolic blood pressure 2023-09-26 20:00:00 138 mm[Hg] [facility] Diastolic blood pressure 2023-09-26 20:00:00 83 mm[Hg] [facility] Heart rate 2023-09-26 20:00:00 94 /min [facility] Body temperature 2023-09-26 20:00:00 36.56 Dawna [facility] Body weight 2023-09-26 20:00:00 83.19 kg [facility] BMI 2023-09-26 20:00:00 31.48 kg/m2 [facility] Systolic blood pressure 2023-09-16 19:41:00 122 mm[Hg] [facility] Diastolic blood pressure 2023-09-16 19:41:00 82 mm[Hg] [facility] Heart rate 2023-09-16 19:41:00 102 /min [facility] Body temperature 2023-09-16 19:41:00 36.06 Dawna [facility] Body weight 2023-09-16 19:41:00 81.364 [facility] Systolic blood pressure 2023-09-02 15:13:00 142 mm[Hg] [facility] Diastolic blood pressure 2023-09-02 15:13:00 92 mm[Hg] [facility] Heart rate 2023-09-02 15:13:00 102 /min [facility] alth Body temperature 2023-09-02 13:40:00 36.56 Dawna [facility] Body weight 2023-09-02 13:40:00 79.017 kg [facility] Systolic blood pressure 2023-07-29 19:17:00 145 mm[Hg] [facility] Diastolic blood pressure 2023-07-29 19:17:00 104 mm[Hg] [facility] Heart rate 2023-07-29 19:17:00 99 /min [facility] Body temperature 2023-07-29 19:17:00 36.28 Dawna [facility] Respiratory rate 2023-07-29 19:17:00 18 /min [facility] Body weight 2023-07-29 19:17:00 78.926 kg [facility] BMI 2023-07-29 19:17:00 29.87 kg/m2 [facility] Oxygen saturation in Arterial blood by Pulse oximetry 2023-07-29 19:17:00 98 /min [facility] Systolic blood pressure 2023-07-25 20:32:00 132 mm[Hg] [facility] Diastolic blood pressure 2023-07-25 20:32:00 86 mm[Hg] [facility] Heart rate 2023-07-25 20:32:00 106 /min [facility] Body height 2023-07-25 20:32:00 162.6 cm [facility] Body weight 2023-07-25 20:32:00 77.701 kg [facility] BMI 2023-07-25 20:32:00 29.40 kg/m2 [facility] Oxygen saturation in Arterial blood by Pulse oximetry 2023-07-25 20:32:00 100 /min [facility] Systolic blood pressure 2023-07-24 08:00:00 139 mm[Hg] [facility] Diastolic blood pressure 2023-07-24 08:00:00 98 mm[Hg] [facility] Heart rate 2023-07-24 08:00:00 97 /min [facility] Respiratory rate 2023-07-24 08:00:00 17 /min [facility] Oxygen saturation in Arterial blood by Pulse oximetry 2023-07-24 08:00:00 99 /min [facility] Body height 2023-07-24 03:41:00 167.6 cm [facility] Body weight 2023-07-24 03:41:00 81.647 kg [facility] BMI 2023-07-24 03:41:00 29.05 kg/m2 [facility] Body temperature 2023-07-24 03:40:00 36.06 Dawna [facility] Systolic blood pressure 2021-03-14 02:30:00 150 mm[Hg] [facility] Diastolic blood pressure 2021-03-14 02:30:00 94 mm[Hg] [facility] Heart rate 2021-03-14 02:30:00 92 /min [facility] Body temperature 2021-03-14 02:30:00 37.56 Dawna [facility] Respiratory rate 2021-03-14 02:30:00 18 /min [facility] Oxygen saturation in Arterial blood by Pulse oximetry 2021-03-14 02:30:00 99 /min [facility] Body height 2021-03-13 21:02:00 162.6 cm [facility] Body weight 2021-03-13 21:02:00 68.04 kg [facility] BMI 2021-03-13 21:02:00 25.75 kg/m2 [facility] Systolic blood pressure 2020-06-23 23:06:00 126 mm[Hg] [facility] Diastolic blood pressure 2020-06-23 23:06:00 77 mm[Hg] [facility] Heart rate 2020-06-23 23:06:00 111 /[facility] 2020-06-23 23:06:00 37.39 Dawna [facility] Respiratory rate 2020-06-23 23:06:00 18 /min [facility] Body weight 2020-06-23 23:06:00 [facility] in Arterial blood by Pulse oximetry 2020-06-23 23:06:00 100 /min [facility] BP Systolic 2023-08-15 15:21:00 154 mm[Hg] Step hen F Kendrick BP Diastolic 2023-08-15 15:21:00 93 mm[Hg] Tyrone phen F Kendrick Weight Measured 2023-08-15 15:21:00 174.80 pounds Francois F Kendrick Height Measured 2023-08-15 15:21:00 63.19 inches Francois F Kendrick Body Temperature 2023-08-15 15:21:00 98.10 degrees Francois F Kendrick Heart Rate 2023-08-15 15:21:00 107.00 /min Step [facility] Kendrick Respiratory Rate 2023-08-15 15:21:00 20.00 /min Francois F Kendrick BP Systolic 2023-07-18 15:38:00 153 mm[Hg] Step hen F Kendrick BP Diastolic 2023-07-18 15:38:00 85 mm[Hg] Tyrone phen F Kendrick Weight Measured 2023-07-18 15:38:00 175.80 pounds Francois F Kendrick Height Measured 2023-07-18 15:38:00 63.19 inches Francois F Kendrick Body Temperature 2023-07-18 15:38:00 Francois F Kendrick Heart Rate 2023-07-18 15:38:00 Shobha en F Kendrick Respiratory Rate 2023-07-18 15:38:00 Francois F Kendrick BP Systolic 2023-07-18 15:26:00 153 mm[Hg] Step hen F Kendrick BP Diastolic 2023-07-18 15:26:00 85 mm[Hg] Tyrone phen F Kendrick Weight Measured 2023-07-18 15:26:00 175.80 pounds Francois F Kendrick Height Measured 2023-07-18 15:26:00 63.19 inches Francois F Kendrick Body Temperature 2023-07-18 15:26:00 98.20 degrees Francois F Kendrick Heart Rate 2023-07-18 15:26:00 99.00 /min Shobha en F Kendrick Respiratory Rate 2023-07-18 15:26:00 18.00 /min Francois F Kendrick BP Systolic 2023-06-18 16:24:00 123 mm[Hg] Step hen F Kendrick BP Diastolic 2023-06-18 16:24:00 80 mm[Hg] Tyrnoe phen F Kendrick Weight Measured 2023-06-18 16:24:00 169.00 pounds Francois F Kendrick Height Measured 2023-06-18 16:24:00 63.19 inches Francois F Kendrick Body Temperature 2023-06-18 16:24:00 98.30 degrees Francois F Kendrick Heart Rate 2023-06-18 16:24:00 107.00 /min Step hen F Kendrick Respiratory Rate 2023-06-18 16:24:00 18.00 /min Francois F Kendrick BP Systolic 2023-06-17 16:20:00 136 mm[Hg] Step hen F Kendrick BP Diastolic 2023-06-17 16:20:00 84 mm[Hg] Tyrone phen F Kendrick Weight Measured 2023-06-17 16:20:00 173.00 pounds Francois F Kendrick Height Measured 2023-06-17 16:20:00 63.19 inches Francois F Kendrick Body Temperature 2023-06-17 16:20:00 98.20 degrees Francois F Kendrick Heart Rate 2023-06-17 16:20:00 106.00 /min Step hen F Kendrick Respiratory Rate 2023-06-17 16:20:00 18.00 /min Francois F Kendrick BP Systolic 2023-06-06 16:36:00 143 mm[Hg] Step hen F Kendrick BP Diastolic 2023-06-06 16:36:00 86 mm[Hg] Tyrone phen F Kendrick Weight Measured 2023-06-06 16:36:00 165.80 pounds Francois F Kendrick Height Measured 2023-06-06 16:36:00 63.19 inches Francois F Kendrick Body Temperature 2023-06-06 16:36:00 98.20 degrees Francois F Kendrick Heart Rate 2023-06-06 16:36:00 103.00 /min Step hen F Kendrick Respiratory Rate 2023-06-06 16:36:00 18.00 /min Francois F Kendrick BP Systolic 2023-05-29 08:39:00 175 mm[Hg] Step hen F Kendrick BP Diastolic 2023-05-29 08:39:00 105 mm[Hg] Tyrone phen F Kendrick Weight Measured 2023-05-29 08:39:00 163.60 pounds Francois F Kendrick Height Measured 2023-05-29 08:39:00 63.19 inches Francois F Kendrick Body Temperature 2023-05-29 08:39:00 98.10 degrees Francois F Kendrick Heart Rate 2023-05-29 08:39:00 107.00 /min Step hen F Kendrick Respiratory Rate 2023-05-29 08:39:00 17.00 /min Francois F Kendrick BP Systolic 2022-10-04 08:23:00 152 mm[Hg] Step hen F Kendrick BP Diastolic 2022-10-04 08:23:00 100 mm[Hg] Tyrone phen F Kendrick Weight Measured 2022-10-04 08:23:00 163.60 pounds Francois F Kendrick Height Measured 2022-10-04 08:23:00 63.19 inches Francois F Kendrick Body Temperature 2022-10-04 08:23:00 97.70 degrees Francois F Kendrick Heart Rate 2022-10-04 08:23:00 96.00 /min Shobha en F Kendrick Respiratory Rate 2022-10-04 08:23:00 17.00 /min Francois F Kendrick BP Systolic 2022-01-23 08:10:00 153 mm[Hg] Step hen F Kendrick BP Diastolic 2022-01-23 08:10:00 95 mm[Hg] Tyrone phen F Kendrick Weight Measured 2022-01-23 08:10:00 166.80 pounds Francois F Kendrick Height Measured 2022-01-23 08:10:00 63.19 inches Francois F Kendrick Body Temperature 2022-01-23 08:10:00 98.30 degrees Francois F Kendrick Heart Rate 2022-01-23 08:10:00 92.00 /min Shobha en F Kendrick Respiratory Rate 2022-01-23 08:10:00 17.00 /min Francois F Kendrick BP Systolic 2021-07-26 08:25:00 115 mm[Hg] Step hen F Kendrick BP Diastolic 2021-07-26 08:25:00 80 mm[Hg] Tyrone Marks Weight Measured 2021-07-26 08:25:00 154.00 pounds Francois Marks Height Measured 2021-07-26 08:25:00 63.19 inches Francois Marks Body Temperature 2021-07-26 08:25:00 98.20 degrees Francois Marks Heart Rate 2021-07-26 08:25:00 113.00 /min Meet Marks Respiratory Rate 2021-07-26 08:25:00 17.00 /min Francois Marks Procedures Procedure Date / Time Performed Performing Clinician Source POCT GLUCOSE 2023-09-16 21:05:00 Laisha Rangel [facility] POCT GLUCOSE 2023-09-16 20:20:00 Laisha Rangel [facility] POCT HEMOGLOBIN A1C TEST 2023-07-25 00:00:00 Jose Alvarenga [facility] EKG-12 LEAD 2023-07-24 09:08:47 Dana Reynaga [facility] POCT GLUCOSE (AUTOMATED) 2023-07-24 08:16:00 Dana Reynaga [facility] LACTIC ACID WHOLE BLOOD 2023-07-24 07:16:00 Annelise Reynaga [facility] US FIRST TRIMESTER LESS THAN 14 WEEKS WITH TRANSVAGINAL 2023-07-24 06:45:00 Dana Reynaga [facility] POCT GLUCOSE (AUTOMATED) 2023-07-24 06:10:00 Dana Reynaga [facility] POCT TEST 2023-07-24 05:52:00 Dana Reynaga [facility] URINALYSIS 2023-07-24 05:44:00 Dana Reynaga [facility] POCT GLUCOSE (AUTOMATED) 2023-07-24 03:57:00 Dana Reynaga [facility] LACTIC ACID WHOLE BLOOD 2023-07-24 03:51:00 Annelise Reynaga [facility] BLOOD CULTURE SCREEN 2023-07-24 03:48:00 Laurita Reynaga i [facility] LIPASE 2023-07-24 03:47:00 Dana Reyngaa [facility] COMP. METABOLIC PANEL (79533) 2023-07-24 03:47:00 Dana Renyaga [facility] TOTAL BETA HCG ASSAY 2023-07-24 03:47:00 Laurita Reynaga i [facility] CBC WITH DIFF 2023-07-24 03:47:00 Dana Reynaga [facility] POCT GLUCOSE(AGE >30DAYS) 2023-07-24 03:30:00 Dana Reynaga [facility] CT ABDOMEN PELVIS W CONTRAST 2021-03-14 00:45:22 Adeola Carlton [facility] LIPASE 2021-03-13 23:48:00 Adeola Carlton [facility] COMP. METABOLIC PANEL (87412) 2021-03-13 23:48:00 Adeola Carlton [facility] CBC WITH DIFF 2021-03-13 23:48:00 Adeola Carlton [facility] ASSIGNMENT OF BENEFITS 2021-03-13 23:06:35 Docto r Unassigned, Geary [facility] URINALYSIS 2021-03-13 21:13:00 Adeola Carlton [facility] POCT TEST 2021-03-13 21:13:00 Cipriano Carlton [facility] CONSENT/REFUSAL FOR DIAGNOSIS AND TREATMENT 2021-03-13 20:53:31 Doctor Unassigned, Geary [facility] XR ANKLE 3+ VW RIGHT 2020-06-23 23:51:15 Daniel Vora [facility] XR FOOT 3+ VW RIGHT 2020-06-23 23:51:15 Daniel Vora [facility] NOTICE OF PRIVACY PRACTICES 2020-06-23 22:57:22 Doctor Unassigned, Geary [facility] CONSENT/REFUSAL FOR DIAGNOSIS AND TREATMENT 2020-06-23 22:57:10 Doctor Unassigned, Geary [facility] Encounters Start Date/Time End Date/Time Encounter Type Admission Type Attending [facility] Care Facility Care Department Encounter ID Source 2023-10-28 09:15:00 2023-10-28 09:15:00 Outpatient [facility] [id number] [facility] 2023-10-09 13:15:00 2023-10-09 13:15:00 Outpatient CAROL ANN MORGAN [facility] [id number] [facility] 2023-10-07 15:30:00 2023-10-07 15:30:00 Outpatient [facility] [id number] [facility] 2023-09-30 10:00:00 2023-09-30 10:00:00 Outpatient [facility] [id number] [facility] 2023-09-26 14:30:00 2023-09-26 16:10:51 Routine Mfm, Fellow [address] 1.2.840.114 350.1.13.58 9.2.7.2.686 [id number] [facility] 2023-09-26 15:30:00 2023-09-26 15:30:00 Outpatient [facility] [id number] [facility] 2023-09-26 13:45:00 2023-09-26 14:15:00 Diabetes Education Carol Ann Morgan [facility] [address] 1.2.840.114 350.1.13.58 9.2.7.2.686 [id number] [facility] 2023-09-23 13:15:00 2023-09-23 13:15:00 Outpatient [facility] [id number] [facility] 2023-09-16 14:00:00 2023-09-16 16:06:39 Routine Laisha Rangel Ob High Risk, Utpb [facility] [address] 1.2.840.114 350.1.13.58 9.2.7.2.686 [id number] [facility] 2023-09-16 15:45:00 2023-09-16 15:45:00 Diabetes Education CAROL ANN MORGAN [facility] [address] 1.2.840.114 350.1.13.58 9.2.7.2.686 [id number] [facility] 2023-09-16 13:00:00 2023-09-16 14:31:46 Outpatient [facility] [id number] [facility] 2023-09-13 14:15:00 2023-09-13 14:15:00 Outpatient JUDY HITCHCOCK [facility] [id number] [facility] 2023-09-11 13:00:00 2023-09-11 13:00:00 Outpatient [facility] [id number] [facility] 2023-09-10 08:30:00 2023-09-10 08:30:00 Outpatient DAVID DENISHA [facility] [id number] [facility] 2023-09-02 08:30:00 2023-09-02 09:48:54 Initial [facility] [address] 1.2.840.114 350.1.13.58 9.2.7.2.686 [id number] [facility] 2023-08-29 11:19:32 2023-08-29 11:19:32 Outpatient [facility] 16 Francois Vargas [place] 2023-08-19 08:14:12 2023-08-19 08:14:12 Outpatient SFA SFA 505 Francois Vargas [place] 2023-08-15 15:19:14 2023-08-15 15:19:14 Outpatient [facility] SFA [id number] Francois Vargas [place] 2023-08-15 00:00:00 2023-08-15 00:00:00 Outpatient Visit SFA [id number] Francois Vargas [place] 2023-07-29 14:00:00 2023-07-29 14:30:[address] [facility] 1.2.840.114 350.1.13.10 4.2.7.2.686 [id number] [facility] 2023-07-29 14:00:00 2023-07-29 14:00:[address] [facility] [id number] Kendal garg [facility] 2023-07-25 15:00:00 2023-07-25 15:30:00 Office Visit Jose Alvarenga Ngozi [facility] 1.2.840.114 350.1.13.10 4.2.7.2.686 [id number] [facility] 2023-07-23 22:36:00 2023-07-24 04:26:00 Emergency X DANA REYNAGA [facility] ERT [id number] [facility] 2023-07-23 22:36:00 2023-07-24 04:26:[address] Dana Reynaga [facility] 1.2.840.114 350.1.13.10 4.2.7.2.686 [id number] [facility] 2023-07-18 15:21:05 2023-07-18 15:21:05 Outpatient [facility]FA SFA [id number] Francois Marks 2023-07-01 08:15:26 2023-07-01 08:15:26 Outpatient SFA SFA [id number] Francois Vargas Kendrick 2023-06-27 10:55:35 2023-06-27 10:55:35 Outpatient SFA SFA [id number] Francois Vargas Kendrick 2023-06-21 15:41:59 2023-06-21 15:41:59 Outpatient SFA SFA [id number] Francois Marks 2023-06-18 16:22:51 2023-06-18 16:22:51 Outpatient SFA SFA [id number] Francois Vargas Kendrick 2023-06-17 16:20:03 2023-06-17 16:20:03 Outpatient SFA SFA [id number] Francois Marks 2023-06-13 13:46:21 2023-06-13 13:46:21 Outpatient SFA SFA [id number] Francois Marks 2023-06-06 16:29:23 2023-06-06 16:29:23 Outpatient [facility] [id number] Francois Marks 2023-06-05 16:14:14 2023-06-05 16:14:14 Outpatient [facility] [id number] Francois Marks 2023-05-29 08:18:05 2023-05-29 08:18:05 Outpatient [facility] 213 Francois Marks 2022-10-04 08:16:36 2022-10-04 08:16:36 Outpatient [facility] [id number] Francois Marks 2022-01-23 08:02:29 2022-01-23 08:02:29 Outpatient [facility] [id number] Francois Marks 2021-03-13 15:15:00 2021-03-13 20:38:00 Emergency X ADEOLA CARLTON [facility] ERT [id number] [facility] 2021-03-13 15:15:00 2021-03-13 20:38:00 Emergency Marbin Adeola Alicia [facility] 1.2.840.114 350.1.13.10 4.2.7.2.686 [id number] [facility] 2020-06-23 17:07:00 2020-06-23 18:38:00 Emergency Daniel Vora [facility] 1.2.840.114 350.1.13.10 4.2.7.2.686 [id number] [facility] 2020-06-23 17:07:00 2020-06-23 17:07:00 Emergency X DANIEL VORA [facility] ERT [id number] [facility] Results Test Description Test Time Test Comments Results Result Co mments Source [facility] glucose manually [id number] 21:05:49* Test Item Value Reference Range Interpretation Comme nts Glucose Blood, POC (test cod e = 3656887) 74 mg/dL 70-180 Lab Interpretation (test cod e = 67921-7) [facility] [id number] 21:05:49* Test Item Value Reference Range Interpretation Comme nts Glucose Blood, POC (test cod e = 4076320) 74 mg/dL 70-180 Lab Interpretation (test cod e = 11719-0) Normal [facility] [id number] 21:05:24* Test Item Value Reference Range Interpretation Comme nts Glucose Blood, POC (test cod e = 7957499) 48 mg/dL 70-180 A Lab Interpretation (test cod e = 18585-7) Abnormal [facility] manually [id number] 21:05:24* Test Item Value Reference Range Interpretation Comme nts Glucose Blood, POC (test cod e = 5738906) 48 mg/dL 70-180 A Lab Interpretation (test cod e = 91420-7) [facility]normal [facility] [id number] 21:05:24* Test Item Value Reference Range Interpretation Comme nts Glucose Blood, POC (test cod e = 2368294) 48 mg/dL 70-180 A Lab Interpretation (test cod e = 61090-3) [facility]normal [facility] [id number] 20:20:53* Test Item Value Reference Range Interpretation Comme nts Glucose Blood, POC (test cod e = 0208318) 39 mg/dL 70-180 A Lab Interpretation (test cod e = 22893-6) [facility]normal [facility] [id number] 20:20:53* Test Item Value Reference Range Interpretation Comme nts Glucose Blood, POC (test cod e = 6325905) 39 mg/dL 70-180 A Lab Interpretation (test cod e = 73321-3) [facility]normal [facility] [id number] 20:20:53* Test Item Value Reference Range Interpretation Comme nts Glucose Blood, POC (test cod e = 4211036) 39 mg/dL 70-180 A Lab Interpretation (test cod e = 18124-9) [facility]normal [facility] [id number] 20:20:53* Test Item Value Reference Range Interpretation Comme nts Glucose Blood, POC (test cod e = 0655196) 39 mg/dL 70-180 A Lab Interpretation (test cod e = 84965-5) [facility]normal [facility], 24 [id number] 06:04:00* Test Item Value Reference Range Interpretation Comme nts PROTEIN, URINE, CONC. (test code = 2103) 54 MG/DL NOT ESTAB PROTEIN, URINE 24 HR (test code = 2059) 810 MG/24 HOURS 0-150 H TOTAL URINE VOLUME (test code = 2055) 1500 ML 500-3500 CREATININE, URINE, CONC. (test code = 2071) 74.7 MG/DL NOT ESTAB CREATININE, URINE, 24 HR (test code = 2109) 1.1 GM/24 HOURS 1.0-2.0 CALC PROT/CREAT, 24 HR (test code = 2164) 723 MG/G CREAT <107 H UNLESS OTHERWISE INDICATED, ALL TESTING PERFORMED AT [facility] [address] [place] [address] PAPER CUP MACHINE OPERATOR: MARY RICH M.D. CLIA NUMBER [id number] [place]. [id number] CULTURE, [id number] 09:30:59SPECIMEN NUMBER: [id number] CULTURE, URINE SPECIMEN NUMBER: [id number] SPECIMEN COMMENT: URINE SOURCE: URINE REPORT STATUS: FINAL FINAL REPORT: 08/18/2023 50-100,000 CFU/ML UROGENITAL BHAVIN PRESENT NO C OMMON PATHOGENSCOMPREHENSIVE METABOLIC [id number] 06:02:06* Test Item Value Reference Range Interpretation Comme nts GLUCOSE (test code = 7) 103 MG/DL 70-99 H BUN (test code = 2208) 15 MG/DL 6-20 CREATININE (test code = 2214) 0.82 MG/DL 0.60-1.30 eGFR (2020 CKD-EPI) (test co de = 78037) 98 ML/MIN/1.73 >60 CALC BUN/CREAT (test code = 2235) 18 RATIO 6-28 SODIUM (test code = 2231) 136 MEQ/L 133-146 POTASSIUM (test code = 2228) 4.0 MEQ/L 3.5-5.4 CHLORIDE (test code = 2215) 99 MEQ/L 95-107 CARBON DIOXIDE (test code = 2206) 26 MEQ/L 19-31 CALCIUM (test code = 2209) 9.1 MG/DL 8.5-10.5 PROTEIN, TOTAL (test code = 2229) 6.9 G/DL 6.1-8.3 ALBUMIN (test code = 2201) 3.7 G/DL 3.5-5.2 CALC GLOBULIN (test code = 2240) 3.2 G/DL 1.9-3.7 CALC A/G RATIO (test code = 2234) 1.2 RATIO 1.0-2.6 BILIRUBIN, TOTAL (test code = 2207) <0.2 MG/DL <=1.2 ALKALINE PHOSPHATASE (test code = 2204) 69 U/L 40-114 AST (test code = 2218) 16 U/L 9-40 ALT (test code = 2219) 15 U/L 5-40 LIPID [id number] 06:02:06* Test Item Value Reference Range Interpretation Comme nts CHOLESTEROL (test code = 2210) 271 MG/DL <200 H TRIGLYCERIDES (test code = 2232) 238 MG/DL <150 H HDL CHOLESTEROL (test code = 2220) 61 MG/DL >39 CALC LDL CHOL (test code = 2237) 170 MG/DL <100 H NOTE: CALCULATED LDL IS BASED ON ASAD-BARBOUR METHOD WHICHINCLUDES ADJUSTABLE TRIGLYCERIDE:VLDL CHOLESTEROL RATIO.THIS FACTOR VARIES BY MEASURED TRIGLYCERIDE AND NON-HDLCHOLESTEROL CONCENTRATIONS WITH INCREASED CALCULATED LDL SEENIN HIGHER TRIGLYCERIDE OR LOWER NON-HDL SPECIMENS. FOR MOREINFORMATION, SEE CLIENT ANNOUNCEMENT AT [email or web address] RISK RATIO LDL/HDL (test code = 2238) 2.79 RATIO <3.22 UNLESS OTHERW ISE INDICATED, ALL TESTING PERFORMED AT [facility] [address] [place] [address] PAPER CUP MACHINE OPERATOR: MARY RICH M.D. CLIA NUMBER [id number] [place]. [id number] CBC W/AUTO DIFF WITH [id number] 02:55:28* Test Item Value Reference Range Interpretation Comme nts WBC (test code = 1001) 10.7 K/UL 3.5-11.0 RBC (test code = 1002) 3.76 M/UL 3.80-5.40 L HEMOGLOBIN (test code = 1003) 11.1 G/DL 11.5-15.5 L HEMATOCRIT (test code = 1004) 32.7 % 34.0-45.0 L MCV (test code = 1005) 87.0 fL 80.0-99.0 MCH (test code = 1006) 29.5 PG 25.0-33.0 MCHC (test code = 1007) 33.9 G/DL 31.0-36.0 RDW (test code = 1038) 13.5 % 11.5-15.0 NEUTROPHILS (test code = 1008) 62.2 % LYMPHOCYTES (test code = 1010) 26.7 % MONOCYTES (test code = 1011) 8.1 % EOSINOPHILS (test code = 1012) 2.1 % BASOPHILS (test code = 1013) 0.4 % IMMATURE GRANULOCYTES (test code = 1036) 0.5 % NUCLEATED RBCS (test code = 1065) 0.0 /100 WBC'S See_Comment [Automated messa ge] The system which generated this result transmitted reference range: 0.0. The reference range was not used to interpret this result as normal/abnormal. PLATELET COUNT (test code = 1015) 365 K/UL 130-400 ABSOLUTE NEUTROPHILS (test code = 1066) 6.65 K/UL 1.50-7.50 ABSOLUTE LYMPHOCYTES (test code = 1067) 2.86 K/UL 1.00-4.00 ABSOLUTE MONOCYTES (test code = 1068) 0.87 K/UL 0.20-1.00 ABSOLUTE EOSINOPHILS (test code = 1040) 0.23 K/UL 0.00-0.50 ABSOLUTE BASOPHILS (test code = 1069) 0.04 K/UL 0.00-0.20 ABS IMMATURE GRANULOCYTES (test code = 1020) 0.05 K/UL 0.00-0.10 ABS NUCLEATED RBCS (test code = 34055) 0.00 K/UL 0.00-0.11 NIPS WITH SEX, [id number] 19:20:16* Test Item Value Reference Range Interpretation Comments FINAL NIPS RESULT (test code = 41565) Low Risk PREDICTED SEX (test code = 13345) Female FRACTION (EST.) (test code = 00159) 5 % TRISOMY 21 (T21) (test code = 39294) Low probability T21 PRE-TEST PROB (test code = 44332) T21 POST-TEST PROB (test code = 19156) <1/20,000 TRISOMY 18 (T18) (test code = 927973) Low probability T18 PRE-TEST PROB (test code = 910598) 04/15,864 T18 POST-TEST PROB (test code = 371591) <1/20,000 TRISOMY 13 (T13) (test code = 317379) Low probability T13 PRE-TEST PROB (test code = 100278) 1/5,014 T13 POST-TEST PROB (test code = 269566) <1/20,000 INTERPRETATION (test code = 987943) See Note Testing of circu kristinag cell-free DNA from maternalblood shows no evidence of numerical abnormalitiesof the tested chromosomes. IMPORTANT INFORMATION (test code = 968767) See Note The pre-test pro bability or risk of an abnormalityis estimated from maternal age but it may beinfluenced by certain maternal or -related factors. Refer to the Test PerformanceCharacteristics section below for detailedinformation. False negative NIPS results are rarebut may occur due to biological or analyticalfactors. RECOMMENDATION (test code = 291506) See Note A negative resul t does not eliminate the risk forother chromosomal abnormalities or birthdefects that are not evaluated in this screeningtest. Clinical correlation of test results isrecommended. GESTATION AT DEREK (W) (test code = 313164) 12 weeks GESTATION AT DEREK (D) (test code = 524970) 1 days DELIVERY DATE (EST.) (test code = 240577) 01/29/2024 PROVIDED HISTORY INFORMATION (test code = 675487) NUMBER OF FETUSES (test code = 621380) Shen MATERNAL WEIGHT (test code = 335357) 175 LBS DATING METHOD (test code = 213900) FREDDY ESTIMATED DATE OF DELIVERY (FREDDY) (test code = 450026) 01/19/2024 IVF (test code = 930782) NO PATIENT CONSENT (test code = 825226) YES SEX (test code = 722181) See Note sex determ ination is based on detection of Ychromosome in DNA fragments. The absence of Ychromosome in this sample indicates a very highlikelihood that the fetus is female sex. Sexassignment may not be perfectly accurate due topregnancy-related issues such as demise amongother possibilities. sex determination doesnot exclude Sex Chromosome Aneuploidy (SCA),including Monosomy X, unless that testing isspecifically ordered. GENETIC COUNSELING:The submitting laboratory can facilitate consultation with anindependent, qualified genetic counselor. Educational materials andinformation regarding genetic counseling services are available [email or web address]. METHOD:[facility]'s Non-Invasive Screening (NIPS)test is intended for early screening of aneuploidies (bothmonosomy and trisomy) in chromosomes 21, 18, 13, X and Y. The testutilizes [employer]'s SABIAiSeq NIPT Solution v2 and whole-genomesequencing of circulating fragments of cell-free DNA (cfDNA) obtainedfrom maternal plasma at 10 weeks gestation or later. The fetalcomponent of cfDNA is derived from placental tissue. Paired-endsequencing data of cfDNA are aligned with a reference genome (HG19)and analyzed by the [employer] NIPT Solution v2 algorithm to determinefetal fraction (FF) and numerical abnormalities in chromosomes 21,18, 13, X and Y. FF is used as a quality assurance project manager parameter for NIPSanalysis and interpretation. This test was developed and itsperformance characteristics determined by [facility]). It has not been cleared or approved by the U.S. Food and DrugAdministration (FDA). The FDA has determined that such clearance orapproval is not necessary. This test is used for clinical purposesand should not be regarded as investigational or for research. [facility] isqualified to perform high complexity testing under the ClinicalLaboratory Improvement Amendments (CLIA). TEST PERFORMANCE CHARACTERISTICS: Test Sensitivity and Specificity (Shen ):Trisomy 21 (N=130): Sensitivity >99%, Specificity >99.9%Trisomy 18 (N=41): Sensitivity >99%, Specificity >99.9%Trisomy 13 (N=26): Sensitivity >99%, Specificity >99.9%Monosomy X (N=21): Sensitivity 90.5%, Specificity >99%Trisomy X (N=17): Sensitivity >99%, Specificity >99%XXY (N=23): Sensitivity >99%, Specificity >99%XYY (N=12): Sensitivity 91.7%, Specificity >99% Sensitivity and specificity for singletons for T21, T18 and T13 andsex chromosome aneuploidies (SCA) are derived from a study of 2,235pregnancies using the [employer] NIPT v2 test. The number of affectedpregnancies are indicated in parentheses in the chart above. Thespecificity estimate for SCA is based on identification of a definedSCA in all 73 affected pregnancies; the final cytogenetic results mayindicate a different SCA. Concordance between predicted sex and sexat delivery was >99.9%. Test Sensitivity and Specificity ([place] ):Trisomy 21: Sensitivity 96.4%, Specificity 99.9%Trisomy 18: Sensitivity 95.7%, Specificity 99.9%Trisomy 13: Sensitivity 93.6%, Specificity 99.9% Test performance characteristics for T21, T18 and T13 in twinpregnancies are based on in silico simulation models due to the lowprevalence of trisomy 21, 18, and 13 in twin pregnancies. Sensitivityand specificity information is not available for Monosomy X or SCAin twin pregnancies. Pre- and Post-Test Probability:The pre-test probability of a trisomy in shen and twinpregnancies, and SCA in shen pregnancies is based on literatureof prevalence or risk. The post-test probability is calculated fromthe prevalence of an abnormality and the test performancecharacteristics or is derived from published medical literature.Refer to [email or web address]. com/erd for additionalinformation on pre- and post-test probability. Depending upon anumber of maternal or -related risk factors, an individualpregnancy may have higher or lower pre-test probability which cansignificantly affect the post-test risk estimation. Personal/familyhistory, sonographic and other -related screening findingsare not utilized in the risk estimation. Genetic or medicalcounseling may be useful to revise risk estimates. Test Limitations:[facility]quare [facility]'s NIPS test is a screening test, thereforefalse negative or false positive results can occur. Maternalconditions including but not limited to blood transfusion, organtransplantation, bone marrow transplant, certain surgical procedures,stem cell therapy, malignancy or genetic mosaicism can affect testaccuracy. -related conditions such as or placentalgenetic mosaicism, demise or nonviable twin can also affecttest accuracy. This test assesses numerical abnormalities of thegiven chromosomes which does not eliminate the possibility that thepregnancy has numerical abnormalities of other chromosomes, balancedtranslocations or sub-chromosomal abnormalities smaller than 7Mb(point mutations or copy number variation). Test results shouldalways be correlated and interpreted in the context of clinicalfindings, family/patient history and other test results. Pregnanciesaffected by high risk results may benefit from genetic counseling andshould undergo definitive confirmation testing. Conclusions aboutfetal condition and management decisions should not bebased solely on the results of this screening test. This NIPS testdoes not detect all genetic, non-genetic or structural defects,including open neural tube defects for which biochemical orsonographic screening options are available. TESTING PERFORMED AT [facility] [address] [facility], [address], [address] [address] CLIA NO: [id number] UNLESS OTHERWISE INDICATED, ALL TESTING PERFORMED AT [facility] [address] [place] [address] PAPER CUP MACHINE OPERATOR: MARY RICH M.D. CLIA NUMBER [id number] [facility] [place]. [id number] NIPT W/ [id number] 00:00:00* Test Item Value Reference Range Interpretation Comme nts FINAL NIPS RESULT (test code = 03868) Low Risk PREDICTED SEX (test code = 50183) Female FRACTION (EST.) (test code = 41119) 5 % TRISOMY 21 (T21) (test code = 00756) Low probability T21 PRE-TEST PROB (test code = 06558) 1/632 T21 POST-TEST PROB (test cod e = 11158) <1/20,000 TRISOMY 18 (T18) (test code = 127626) Low probability T18 PRE-TEST PROB (test code = 433875) 1/1,864 T18 POST-TEST PROB (test cod e = 749859) <1/20,000 TRISOMY 13 (T13) (test code = 172292) Low probability T13 PRE-TEST PROB (test code = 019036) 1/5,014 T13 POST-TEST PROB (test cod e = 491035) <1/20,000 INTERPRETATION (test code = 151824) See Note IMPORTANT INFORMATION (test code = 673598) See Note RECOMMENDATION (test code = 818666) See Note GESTATION AT DEREK (W) (test code = 823843) 12 weeks GESTATION AT DEREK (D) (test code = 947430) 1 days DELIVERY DATE (EST.) (test code = 080655) 01/29/2024 PROVIDED HISTORY INFORMATION (test code = 925644) NUMBER OF FETUSES (test code = 613889) Shen MATERNAL WEIGHT (test code = 444346) 175 LBS DATING METHOD (test code = 113107) FREDDY ESTIMATED DATE OF DELIVERY (FREDDY) (test code = 273489) 01/19/2024 IVF (test code = 269097) NO PATIENT CONSENT (test code = 320744) YES SEX (test code = 120167) See Note Farncois Vargas WillaminaPOCT Hemoglobin A1C [id number] 20:49:00* Test Item Value Reference Range Interpretation Comme [facility] POCT HBA1C (test code = 4548-4) 8.5 % 4-6 A Lab Interpretation (test cod e = 55623-6) [facility] [id number] 20:49:00* Test Item Value Reference Range Interpretation Comme [facility] POCT HBA1C (test code = 4548-4) 8.5 % 4-6 A Lab Interpretation (test cod e = 59620-0) [facility]normal [facility] FIRST TRIMESTER LESS THAN 14 WEEKS WITH [id number] 08:20:58Ordering physician: DANA REYNAGA INDICATION: Pelvic trauma COMPARISON: None TECHNIQUE: Limited grayscale and Doppler images of the pelvis wereperformed via a transabdominal approach only. FINDINGS: There is a single live intrauterine gestation in breech position.The placenta is fundal and posterior without evidence for placenta previaor abruption. heart rate is measured at 148 bpm. Amniotic fluidvolume is grossly within normal limits. The maternal right ovary measures3.5 x 2.0 x 2.3 cm. The left ovary is obscured by overlying bowel gas. anatomic survey was not performed. There is normal color Doppler flowin the right ovary. No free fluid is appreciated. Biometric measurementsare as follows: BPD: 2.8 cm; 15 weeks, 0 daysHC: 9.9 cm; 14 weeks, 5 daysAC: 8.4 cm; 14 weeks, 6 daysFL: 1.4 cm; 14 [facility] 2023-07-24 08:17:08* Test Item Value Reference Range Interpretation Comme nts POCT GLU (test code = 6520333250) 257 mg/dL 70-110 H Lab Interpretation (test cod e = 71344-4) Abnormal [facility] GLUCOSE (AUTOMATED)2023-07-24 06:11:35* Test Item Value Reference Range Interpretation Comme nts POCT GLU (test code = 4151548353) 167 mg/dL 70-110 H Lab Interpretation (test cod e = 62409-9) Abnormal [facility] [id number] 05:52:00* Test Item Value Reference Range Interpretation Comme nts POCT PREG (test code = 1605) Positive On board controls acceptable with C Line (test code = 3574) Yes POCT PREG LOT # (test code = 3575) [id number] POCT PREG TEST DATE ( test code = 3576) 05/22/2024 Lab Interpretation (test cod e = 36751-9) Normal [facility] Hospital[facility]an[facility] Whole [id number] 04:07:10* Test Item Value Reference Range Interpretation Comme nts LACTIC ACID (test code = 1549989766) 3.06 mmol/L 0.50-2.20 H Lab Interpretation (test cod e = 35916-3) Abnormal [facility] GLUCOSE (AUTOMATED)2023-07-24 04:01:03* Test Item Value Reference Range Interpretation Comme nts POCT GLU (test code = 1125974543) 146 mg/dL 70-110 H Notified Provide r Lab Interpretation (test code = 35842-5) Abnormal [facility] GLUCOSE(AGE >30DAYS)2023-07-24 03:30:00* Test Item Value Reference Range Interpretation Comme nts POCT Glu (age>30days) (test code = 3342) 25 mg/dL 70-110 A Lab Interpretation (test cod e = 47578-3) Abnormal [facility], [id number] 10:15:59SPECIMEN NUMBER: [id number] CULTURE, URINE SPECIMEN NUMBER: [id number] SPECIMEN COMMENT: URINE SOURCE: URINE REPORT STATUS: FINAL FINAL REPORT: 07/21/2023 >100,000 CFU/ML MIXED MICROBIAL POPULATION PRESENT, NO PREDOMINATING ORGANISMS;PROBABLE CONTAMINANTS.CULTURE, [id number] 00:00:00* Test Item Value Reference Range Interpretation Comme nts CULTURE, URINE (test code = 49235) SPECIMEN NUMBER: [id number] Francois MarksPROTEIN/CREATININE RATIO, URINE, 24 [id number] 06:35:38* Test Item Value Reference Range Interpretation Comme nts PROTEIN, URINE, CONC. (test code = 2103) 52 MG/DL NOT ESTAB PROTEIN, URINE 24 HR (test code = 2059) 780 MG/24 HOURS 0-150 H TOTAL URINE VOLUME (test code = 2055) 1500 ML 500-3500 CREATININE, URINE, CONC. (test code = 2071) 55.8 MG/DL NOT ESTAB CREATININE, URINE, 24 HR (test code = 2109) 0.8 GM/24 HOURS 1.0-2.0 L CALC PROT/CREAT, 24 HR (test code = 2165) 932 MG/G CREAT <107 H UNLESS OTHERWISE INDICATED, ALL TESTING PERFORMED AT [facility] [address] [place] [address] PAPER CUP MACHINE OPERATOR: MARY RICH M.D. CLIA NUMBER [id number] [place]. [id number] PROTEIN/CREATININE RATIO, URINE, 24 [id number] 00:00:00* Test Item Value Reference Range Interpretation Comme nts PROTEIN, URINE, CONC. (test code = 2103) 52 MG/DL PROTEIN, URINE 24 HR (test code = 2059) 780 MG/24HOURS TOTAL URINE VOLUME (test cod e = 2055) 1500 ML CREATININE, URINE, CONC. (te st code = 2071) 55.8 MG/DL CREATININE, URINE, 24 HR (te st code = 2109) 0.8 GM/24HOURS CALC PROT/CREAT, 24 HR (test code = 5) 932 MG/GCREAT Francois GhoshLTDIANA, [id number] 13:13:18SPECIMEN NUMBER: [id number] CULTURE, URINE SPECIMEN NUMBER: [id number] SPECIMEN COMMENT: URINE SOURCE: URINE REPORT STATUS: FINAL ISOLATE NUMBER 1: ORGANISM: 06/21/2023 >100,000 CFU/ML GRAM NEGATIVEBACILLI IDENTIFICATION: 06/22/2023 KLEBSIELLA PNEUMONIAE K. PNEUMONIAE AMOXICILLIN/CA SENSITIVE <=8/4AMPICILLIN RESISTANT >16CEFAZOLIN SENSITIVE <=2CEFTRIAXONE SENSITIVE <=1CIPROFLOXACIN SENSITIVE <=1LEVOFLOXACIN SENSITIVE <=2NITROFURANTOIN INTERMED 64PIP/TAZOBAC SENSITIVE <=16TETRACYCLINE SENSITIVE <=4TOBRAMYCIN SENSITIVE <=4TRIMETH/SULFA SENSITIVE <=2/38 NOTE: NUMBERS DISPLAYED REPRESENT MINIMUM INHIBITORY CONCENTRATION (SINDHU) WHICH IS EXPRESSED INMCG/ML.CULTURE, [id number] 00:00:00* Test Item Value Reference Range Interpretation Comme nts CULTURE, URINE (test code = 30507) SPECIMEN NUMBER: [id number] Francois LeP TEST, THINPREP, [id number] 17:56:49* Test Item Value Reference Range Interpretation Comme nts SOURCE: (test code = 8001) Cervical/Endoce rvical SLIDES: (test code = 8011) 1 LMP: (test code = 8021) 04/05/2023 SPECIMEN ADEQUACY: (test code = 43294) (NOTE) Satisfactory for evaluation. Endocervical cells/transformation zone component present. INTERPRETATION: (test code = 52077) NILM/NO EPITH. ABNORMALITY;SEE BELOW --- - NEGATIVE FOR INTRAEPITHELIAL LESION OR MALIGNANCY (NILM) ---- OTHER COMMENTS: (test code = 8081) (NOTE) Shift in bhavin suggestive of bacterial vaginosis.Fungal organisms consistent with Mirella present. Background material consistent with lubricant is present, whichinterferes with specimen processing. BAGGAGE INSPECTOR : (test code = 8101) FRANSISCA Zhu (ASCP) LOCATION: (test code = 02395) (NOTE) Specimens proces sed and interpreted at [facility], [address] [place] [address], , CLIA: [id number] CPT: (test code = 8140) (NOTE) [address] UNLESS OTH ERWISE INDICATED, COMPUTER AIDED AND BAGGAGE INSPECTOR SCREENING PERFORMED. The Pap test is a screening test with an inherent, but low probability of error. Your patient should be reminded to consult you immediately if she experiences any suspicious signs or symptoms, regardless of her Pap test result. An alternate report format containing images or consolidated prior Pap history is available as applicable. HPV HIGH RISK WITH GENOTYPE, [id number] 17:50:21* Test Item Value Reference Range Interpretation Comme nts HPV HIGH RISK INTERP (test code = 24877) NEGATIVE NEGATIVE HPV 16 (test code = 89454) NEGATIVE HPV 18 (test code = 30403) NEGATIVE HPV, HR, OTHER GENOTYPES (test code = 30901) NEGATIVE Testing methodol ogy is real-time PCR utilizing hydrolysis probes with the Delisa Naif 4800 system. The test individually detects genotypes 16 and 18, as well as the other 12 high risk types (31,33,35,39,45,51,52,56 ,58,59,66,68). The expected result is negative. A negative result does not rule out the presence of HPV not included in the genotype set, a low level of infection or specimen sampling error. UNLESS OTHERWISE INDICATED, ALL TESTING PERFORMED AT [facility] [address] [place] [address] PAPER CUP MACHINE OPERATOR: MARY RICH M.D. CLIA NUMBER [id number] [facility] [place]. [id number] HEMOGLOBIN [id number] 13:32:20* Test Item Value Reference Range Interpretation Comme nts HEMOGLOBIN A1 (test code = 2575) 97.0 % 95.0-98.5 HEMOGLOBIN A2 (test code = 2576) 3.0 % 1.6-3.7 HEMOGLOBIN F () (test code = 2722) 0.0 % 0.0-2.0 HEMOGLOBIN S (test code = 2724) NONE % NONE DETECTED HEMOGLOBIN C (test code = 2726) NONE % NONE DETECTED OTHER HEMOGLOBIN VARIANT (test code = 50290) NONE DETEC % NONE DETECTED PATHOLOGIST'S INTERPRETATION (test code = 2577) (NOTE) NO ABNORMAL HEMOGLOBINS IDENTIFIED. MARY RICH M.D. VARICELLA ZOSTER [id number] 12:20:39* Test Item Value Reference Range Interpretation Comme nts VARICELLA ZOSTER IgG (test code = 96726) >2000 INDEX SEE BELOW INTERPRETATION V ZV IgG NEGATIVE . . . . . . . . . . . . INDEX <135 EQUIVOCAL. . . . . . . . . . . . INDEX 135-164 NOTE: CONSIDER RETESTING IN A CLINICALLY SUITABLE PERIOD OF TIME, NO SOONER THAN 1-2 WEEKS. POSITIVE . . . . . . . . . . . . INDEX >=165 CT/NG, NAAT, [id number] 11:49:26* Test Item Value Reference Range Interpretation Comme nts CHLAMYDIA, NAAT, THINPREP (test code = 49017) POSITIVE NEGATIVE A Testing is perfo rmed with the Delisa Naif 6800/8800 systems usingreal-time Polymerase Chain Reaction (PCR) method. GONORRHEA, NAAT, THINPREP (test code = 88205) NEGATIVE NEGATIVE A negative resul t does not exclude low level infection, specimensampling error, or collection error. Testing is performed with the Delisa Naif 6800/8800 systems usingreal-time Polymerase Chain Reaction (PCR) method. URIC [id number] 11:30:09* Test Item Value Reference Range Interpretation Comme nts URIC ACID (test code = 2233) 2.4 MG/DL 2.7-6.1 L [id number] 07:34:18* Test Item Value Reference Range Interpretation Comme nts PTT (test code = 1403) 25.9 SECONDS 25.2-40.0 UNLESS OTHERWISE INDICATED, ALL TESTING PERFORMED AT [facility] [address] [place] [address] PAPER CUP MACHINE OPERATOR: MARY RICH M.D. CLIA NUMBER [id number] [facility] [place]. [id number] PROTHROMBIN TIME (PT)2023-06-20 07:34:18* Test Item Value Reference Range Interpretation Comme nts PROTHROMBIN TIME (PT) (test code = 1402) 12.2 SECONDS 12.5-14.7 L INR (test code = 12671) 0.9 SEE BELOW CURRENT RECOMMENDATIONS ARE FOR AN INR OF 2.0-3.0 FOR ALL PATIENTS ON VITAMIN K ANTAGONISTS, EXCEPT THOSE WITH PROSTHETIC HEART VALVES, FOR WHOM INR OF 2.5-3.5 IS RECOMMENDED. HEMOGLOBIN [id number] 04:55:40* Test Item Value Reference Range Interpretation Comme nts HEMOGLOBIN A1c (test code = 12791) 9.2 % 4.2-5.6 H [employer] GUIDELINES FOR HGB A1C: PREDIABETES/INCREASED RISK . . . . . . . 5.7-6.4% DIAGNOSIS OF DIABETES . . . . . . . . . >=6.5% WITH CONFIRMATION OR APPROPRIATE SYMPTOMS NOTE: ASSAY MAY BE AFFECTED BY HEMOGLOBINOPATHIES (SICKLE CELL ANEMIA, S-C DISEASE, OTHERS) OR ARTIFICIALLY LOWERED BY DECREASED RED CELL SURVIVAL (HEMOLYTIC ANEMIAS, BLOOD LOSS, ETC.). CONSIDER ALTERNATE TESTING OR LABORATORY CONSULTATION. OBSTETRIC PANEL + [id number] 04:02:47* Test Item Value Reference Range Interpretation Comme nts WBC (test code = 1001) 10.3 K/UL 3.5-11.0 RBC (test code = 1002) 4.18 M/UL 3.80-5.40 HEMOGLOBIN (test code = 1003) 12.0 G/DL 11.5-15.5 HEMATOCRIT (test code = 1004) 35.8 % 34.0-45.0 MCV (test code = 1005) 85.6 fL 80.0-99.0 MCH (test code = 1006) 28.7 PG 25.0-33.0 MCHC (test code = 1007) 33.5 G/DL 31.0-36.0 RDW (test code = 1038) 13.5 % 11.5-15.0 NEUTROPHILS (test code = 1008) 50.8 % LYMPHOCYTES (test code = 1010) 33.8 % MONOCYTES (test code = 1011) 11.7 % EOSINOPHILS (test code = 1012) 2.8 % BASOPHILS (test code = 1013) 0.3 % IMMATURE GRANULOCYTES (test code = 1036) 0.6 % NUCLEATED RBCS (test code = 1065) 0.0 /100 WBC'S See_Comment [Automated me ssage] The system which generated this result transmitted reference range: 0.0. The reference range was not used to interpret this result as normal/abnormal. PLATELET COUNT (test code = 1015) 360 K/UL 130-400 ABSOLUTE NEUTROPHILS (test code = 1066) 5.21 K/UL 1.50-7.50 ABSOLUTE LYMPHOCYTES (test code = 1067) 3.46 K/UL 1.00-4.00 ABSOLUTE MONOCYTES (test code = 1068) 1.20 K/UL 0.20-1.00 H ABSOLUTE EOSINOPHILS (test code = 1040) 0.29 K/UL 0.00-0.50 ABSOLUTE BASOPHILS (test code = 1069) 0.03 K/UL 0.00-0.20 ABS IMMATURE GRANULOCYTES (test code = 1020) 0.06 K/UL 0.00-0.10 ABS NUCLEATED RBCS (test code = 65607) 0.00 K/UL 0.00-0.11 BLOOD TYPE AND RH (test code = 3901) A NEGATIVE A HISTORICAL RECORD CHECK FOR PREVIOUS RESULTS IS NOT PERFORMED.THESE RESULTS SHOULD BE CORRELATED WITH RESULTS OF PRIOR BLOODTYPING AND ANTIBODY SCREEN STUDIES. ANTIBODY SCREEN (test code = 3902) NEGATIVE NEGATIVE A HISTORICAL RECORD CHECK FOR PREVIOUS RESULTS IS NOT PERFORMED.THESE RESULTS SHOULD BE CORRELATED WITH RESULTS OF PRIOR BLOODTYPING AND ANTIBODY SCREEN STUDIES. RUBELLA ANTIBODY SCREEN (test code = 4600) 38 IU/ML SEE BELOW RUBELLA IgG INTERP (test code = 78955) REACTIVE REACTIVE INTERPRETATI ON UNITS RANGE NON-REACTIVE/NON-IMM UNE IU/ML <10 REACTIVE/IMMUNE IU/ML >=10 HEPATITIS B SURF AG (test code = 2739) NON-REACTIVE NON-REACTIVE RPR (test code = 04247) NON-REACTIVE NON-REACTIVE RPR TITER (test code = 3500) NOT INDIC. TITER NOT INDIC. HIV 1/2 4TH GEN, RFLX CONF (test code = 3514) NON-REACTIVE NON-REACTIVE HEPATITIS C [id number] 04:02:47* Test Item Value Reference Range Interpretation Comme nts HEPATITIS C ANTIBODY (test c ode = 4675) NON-REACTIVE NON-REACTIVE PAP TEST, THINPREP, [id number] 00:00:00* Test Item Value Reference Range Interpretation Comme nts SOURCE: (test code = 8001) Cervical/Endocervical SLIDES: (test code = 8011) 1 LMP: (test code = 8021) 04/05/2023 SPECIMEN ADEQUACY: (test code = 12974) (NOTE) INTERPRETATION: (test code = 94426) NILM/NO EPITH. ABNORMALITY;SEE BELOW OTHER COMMENTS: (test code = 8081) (NOTE) BAGGAGE INSPECTOR: (test code = 8101) FRANSISCA Zhu (ASCP) LOCATION: (test code = 28384) (NOTE) CPT: (test code = 8140) (NOTE) Francois MarksHPV HIGH RISK WITH GENOTYPE, [id number] 00:00:00* Test Item Value Reference Range Interpretation Comme nts HPV HIGH RISK INTERP (test c ode = 75322) NEGATIVE HPV 16 (test code = 02227) NEGATIVE HPV 18 (test code = 83529) NEGATIVE HPV, HR, OTHER GENOTYPES (te st code = 44091) NEGATIVE Francois MarksHEMOGLOBIN [id number] 00:00:00* Test Item Value Reference Range Interpretation Comme nts HEMOGLOBIN A1 (test code = 2575) 97.0 % HEMOGLOBIN A2 (test code = 2576) 3.0 % HEMOGLOBIN F () (test c ode = 2722) 0.0 % HEMOGLOBIN S (test code = 2724) NONE % HEMOGLOBIN C (test code = 2726) NONE % OTHER HEMOGLOBIN VARIANT (te st code = 86273) NONE DETEC % PATHOLOGIST'S INTERPRETATION (test code = 2577) (NOTE) Francois MarksVARICELLA ZOSTER [id number] 00:00:00* Test Item Value Reference Range Interpretation Comme nts VARICELLA ZOSTER IgG (test c ode = 84346) >2000 INDEX Francois MarksHEMOGLOBIN [id number] 00:00:00* Test Item Value Reference Range Interpretation Comme nts HEMOGLOBIN A1c (test code = 53836) 9.2 % Francois MarksURIC [id number] 00:00:00* Test Item Value Reference Range Interpretation Comme nts URIC ACID (test code = 2233) 2.4 MG/DL Francois Vargas AustinPROTHROMBIN TIME (PT)2023-06-20 00:00:00* Test Item Value Reference Range Interpretation Comme nts PROTHROMBIN TIME (PT) (test code = 1402) 12.2 SECONDS INR (test code = 10659) 0.9 Francois [id number] 00:00:00* Test Item Value Reference Range Interpretation Comme nts PTT (test code = 1403) 25.9 SECONDS Francois MarksVAGINAL PATHOGENS DNA [id number] 00:00:00* Test Item Value Reference Range Interpretation Comme nts MIRELLA SPECIES (test code = ) NEGATIVE G. VAGINALIS (test code = ) POSITIVE T. VAGINALIS (test code = ) NEGATIVE Francois MarksGC AND CHLAMYDIA AMPLIFIED, [id number] 00:00:00* Test Item Value Reference Range Interpretation Comme nts CHLAMYDIA, NAAT, THINPREP (t est code = 03841) POSITIVE GONORRHEA, NAAT, THINPREP (t est code = 16100) NEGATIVE Francois MarksOBSTETRIC PANEL + [id number] 00:00:00* Test Item Value Reference Range Interpretation Comme nts WBC (test code = 1001) 10.3 K/UL RBC (test code = 1002) 4.18 M/UL HEMOGLOBIN (test code = 1003) 12.0 G/DL HEMATOCRIT (test code = 1004) 35.8 % MCV (test code = 1005) 85.6 fL MCH (test code = 1006) 28.7 PG MCHC (test code = 1007) 33.5 G/DL RDW (test code = 1038) 13.5 % NEUTROPHILS (test code = 1008) 50.8 % LYMPHOCYTES (test code = 1010) 33.8 % MONOCYTES (test code = 1011) 11.7 % EOSINOPHILS (test code = 1012) 2.8 % BASOPHILS (test code = 1013) 0.3 % IMMATURE GRANULOCYTES (test code = 1036) 0.6 % NUCLEATED RBCS (test code = 1065) 0.0 /100WBC'S PLATELET COUNT (test code = 1015) 360 K/UL ABSOLUTE NEUTROPHILS (test code = 1066) 5.21 K/UL ABSOLUTE LYMPHOCYTES (test code = 1067) 3.46 K/UL ABSOLUTE MONOCYTES (test code = 1068) 1.20 K/UL ABSOLUTE EOSINOPHILS (test code = 1040) 0.29 K/UL ABSOLUTE BASOPHILS (test code = 1069) 0.03 K/UL ABS IMMATURE GRANULOCYTES (test code = 1020) 0.06 K/UL ABS NUCLEATED RBCS (test code = 37749) 0.00 K/UL BLOOD TYPE AND RH (test code = 3901) A NEGATIVE ANTIBODY SCREEN (test code = 3902) NEGATIVE RUBELLA ANTIBODY SCREEN (test code = 4600) 38 IU/ML RUBELLA IgG INTERP (test code = 67159) REACTIVE HEPATITIS B SURF AG (test code = 2739) NON-REACTIVE RPR (test code = 06018) NON-REACTIVE RPR TITER (test code = 3500) NOT INDIC. TITER HIV 1/2 4TH GEN, RFLX CONF (test code = 3514) NON-REACTIVE Francois MarksHEPATITIS C [id number] 00:00:00* Test Item Value Reference Range Interpretation Comme nts HEPATITIS C ANTIBODY (test c ode = 4675) NON-REACTIVE Francois MarksTSH, THIRD [id number] 06:44:18* Test Item Value Reference Range Interpretation Comme nts TSH, THIRD GENERATION (test code = 2821) 0.841 UIU/ML 0.400-4.100 UNLESS OTHERWISE INDICATED, ALL TESTING PERFORMED AT [facility] [address] [place] [address] PAPER CUP MACHINE OPERATOR: MARY RICH M.D. IA NUMBER [id number] [facility] [place]. [id number] COMPREHENSIVE METABOLIC [id number] 03:32:13* Test Item Value Reference Range Interpretation Comme nts GLUCOSE (test code = 2217) 237 MG/DL 70-99 H BUN (test code = 2208) 14 MG/DL 6-20 CREATININE (test code = 2214) 0.70 MG/DL 0.60-1.30 eGFR (2020 CKD-EPI) (test code = 77266) 119 ML/MIN/1.73 >60 CALC BUN/CREAT (test code = 2235) 20 RATIO 6-28 SODIUM (test code = 2231) 137 MEQ/L 133-146 POTASSIUM (test code = 2228) 4.4 MEQ/L 3.5-5.4 CHLORIDE (test code = 2215) 97 MEQ/L 95-107 CARBON DIOXIDE (test code = 6) 25 MEQ/L 19-31 CALCIUM (test code = 2209) 10.1 MG/DL 8.5-10.5 PROTEIN, TOTAL (test code = 9) 7.5 G/DL 6.1-8.3 ALBUMIN (test code = 2201) 4.2 G/DL 3.5-5.2 CALC GLOBULIN (test code = 2240) 3.3 G/DL 1.9-3.7 CALC A/G RATIO (test code = 2234) 1.3 RATIO 1.0-2.6 BILIRUBIN, TOTAL (test code = 2206) 0.2 MG/DL See_Comment [Automated me ssage] The system which generated this result transmitted reference range: <=1.2. The reference range was not used to interpret this result as normal/abnormal. ALKALINE PHOSPHATASE (test code = 2203) 109 U/L 40-112 AST (test code = 2218) 23 U/L 9-40 ALT (test code = 2219) 33 U/L 5-40 LIPID [id number] 03:32:13* Test Item Value Reference Range Interpretation Comme nts CHOLESTEROL (test code = 0) 236 MG/DL <200 H TRIGLYCERIDES (test code = 2232) 140 MG/DL <150 HDL CHOLESTEROL (test code = 0) 61 MG/DL >39 CALC LDL CHOL (test code = 7) 149 MG/DL <100 H NOTE: CALCULATED LDL IS BASED ON ASAD-BARBOUR METHOD WHICHINCLUDES ADJUSTABLE TRIGLYCERIDE:VLDL CHOLESTEROL RATIO.THIS FACTOR VARIES BY MEASURED TRIGLYCERIDE AND NON-HDLCHOLESTEROL CONCENTRATIONS WITH INCREASED CALCULATED LDL SEENIN HIGHER TRIGLYCERIDE OR LOWER NON-HDL SPECIMENS. FOR MOREINFORMATION, SEE CLIENT ANNOUNCEMENT AT [email or web address] RATIO LDL/HDL (test code = 8) 2.44 RATIO <3.22 HEMOGLOBIN [id number] 03:20:02* Test Item Value Reference Range Interpretation Comme nts HEMOGLOBIN A1c (test code = 25439) 9.8 % 4.2-5.6 H [employer] GUIDELINES FOR HGB A1C: PREDIABETES/INCREASED RISK . . . . . . . 5.7-6.4% DIAGNOSIS OF DIABETES . . . . . . . . . >=6.5% WITH CONFIRMATION OR APPROPRIATE SYMPTOMS NOTE: ASSAY MAY BE AFFECTED BY HEMOGLOBINOPATHIES (SICKLE CELL ANEMIA, S-C DISEASE, OTHERS) OR ARTIFICIALLY LOWERED BY DECREASED RED CELL SURVIVAL (HEMOLYTIC ANEMIAS, BLOOD LOSS, ETC.). CONSIDER ALTERNATE TESTING OR LABORATORY CONSULTATION. CBC W/AUTO DIFF WITH [id number] 02:23:34* Test Item Value Reference Range Interpretation Comme nts WBC (test code = 1001) 7.4 K/UL 3.5-11.0 RBC (test code = 1002) 4.62 M/UL 3.80-5.40 HEMOGLOBIN (test code = 1003) 13.6 G/DL 11.5-15.5 HEMATOCRIT (test code = 1004) 40.9 % 34.0-45.0 MCV (test code = 1005) 88.5 fL 80.0-99.0 MCH (test code = 1006) 29.4 PG 25.0-33.0 MCHC (test code = 1007) 33.3 G/DL 31.0-36.0 RDW (test code = 1038) 12.9 % 11.5-15.0 NEUTROPHILS (test code = 1008) 57.6 % LYMPHOCYTES (test code = 1010) 29.0 % MONOCYTES (test code = 1011) 11.3 % EOSINOPHILS (test code = 1012) 1.3 % BASOPHILS (test code = 1013) 0.5 % IMMATURE GRANULOCYTES (test code = 1036) 0.3 % NUCLEATED RBCS (test code = 1065) 0.0 /100 WBC'S See_Comment [Automated messa ge] The system which generated this result transmitted reference range: 0.0. The reference range was not used to interpret this result as normal/abnormal. PLATELET COUNT (test code = 1015) 381 K/UL 130-400 ABSOLUTE NEUTROPHILS (test code = 1066) 4.27 K/UL 1.50-7.50 ABSOLUTE LYMPHOCYTES (test code = 1067) 2.15 K/UL 1.00-4.00 ABSOLUTE MONOCYTES (test code = 1068) 0.84 K/UL 0.2-3.8 ABSOLUTE EOSINOPHILS (test code = 1040) 0.10 K/UL 0.00-0.50 ABSOLUTE BASOPHILS (test code = 1069) 0.04 K/UL 0.00-0.20 ABS IMMATURE GRANULOCYTES (test code = 1020) 0.02 K/UL 0.00-0.10 ABS NUCLEATED RBCS (test code = 54881) 0.00 K/UL 0.00-0.11 COMPREHENSIVE METABOLIC [id number] 00:00:00* Test Item Value Reference Range Interpretation Comme nts GLUCOSE (test code = 2217) 237 MG/DL BUN (test code = 2208) 14 MG/DL CREATININE (test code = 2214) 0.70 MG/DL eGFR (2020 CKD-EPI) (test code = 40633) 119 ML/MIN/1.73 CALC BUN/CREAT (test code = 2235) 20 RATIO SODIUM (test code = 2231) 137 MEQ/L POTASSIUM (test code = 2228) 4.4 MEQ/L CHLORIDE (test code = 2215) 97 MEQ/L CARBON DIOXIDE (test code = 2206) 25 MEQ/L CALCIUM (test code = 2209) 10.1 MG/DL PROTEIN, TOTAL (test code = 2229) 7.5 G/DL ALBUMIN (test code = 2201) 4.2 G/DL CALC GLOBULIN (test code = 2240) 3.3 G/DL CALC A/G RATIO (test code = 2234) 1.3 RATIO BILIRUBIN, TOTAL (test code = 2207) 0.2 MG/DL ALKALINE PHOSPHATASE (test code = 2204) 109 U/L AST (test code = 2218) 23 U/L ALT (test code = 2219) 33 U/L Francois MarksLIPID [id number] 00:00:00* Test Item Value Reference Range Interpretation Comme nts CHOLESTEROL (test code = 2210) 236 MG/DL TRIGLYCERIDES (test code = 2232) 140 MG/DL HDL CHOLESTEROL (test code = 2220) 61 MG/DL CALC LDL CHOL (test code = 2237) 149 MG/DL RISK RATIO LDL/HDL (test cod e = 2238) 2.44 RATIO Francois MarksHEMOGLOBIN [id number] 00:00:00* Test Item Value Reference Range Interpretation Comme nts HEMOGLOBIN A1c (test code = 49099) 9.8 % Francois Alicia KendrickTSH, THIRD [id number] 00:00:00* Test Item Value Reference Range Interpretation Comme nts TSH, THIRD GENERATION (test code = 2821) 0.841 UIU/ML Francois Alicia KendrickCBC W/AUTO [id number] 00:00:00* Test Item Value Reference Range Interpretation Comme nts WBC (test code = 1001) 7.4 K/UL RBC (test code = 1002) 4.62 M/UL HEMOGLOBIN (test code = 1003) 13.6 G/DL HEMATOCRIT (test code = 1004) 40.9 % MCV (test code = 1005) 88.5 fL MCH (test code = 1006) 29.4 PG MCHC (test code = 1007) 33.3 G/DL RDW (test code = 1038) 12.9 % NEUTROPHILS (test code = 1008) 57.6 % LYMPHOCYTES (test code = 1010) 29.0 % MONOCYTES (test code = 1011) 11.3 % EOSINOPHILS (test code = 1012) 1.3 % BASOPHILS (test code = 1013) 0.5 % IMMATURE GRANULOCYTES (test code = 1036) 0.3 % NUCLEATED RBCS (test code = 1065) 0.0 /100WBC'S PLATELET COUNT (test code = 1015) 381 K/UL ABSOLUTE NEUTROPHILS (test c ode = 1066) 4.27 K/UL ABSOLUTE LYMPHOCYTES (test c ode = 1067) 2.15 K/UL ABSOLUTE MONOCYTES (test cod e = 1068) 0.84 K/UL ABSOLUTE EOSINOPHILS (test c ode = 1040) 0.10 K/UL ABSOLUTE BASOPHILS (test cod e = 1069) 0.04 K/UL ABS IMMATURE GRANULOCYTES (t est code = 1020) 0.02 K/UL ABS NUCLEATED RBCS (test cod e = 81587) 0.00 K/UL Francois Vargas AustinLIPID [id number] 08:22:53* Test Item Value Reference Range Interpretation Comme nts CHOLESTEROL (test code = 2210) 216 MG/DL <200 H TRIGLYCERIDES (test code = 2232) 83 MG/DL <150 HDL CHOLESTEROL (test code = 2220) 64 MG/DL >39 CALC LDL CHOL (test code = 2237) 134 MG/DL <100 H NOTE: CALCULATED LDL IS BASED ON ASAD-BARBOUR METHOD WHICHINCLUDES ADJUSTABLE TRIGLYCERIDE:VLDL CHOLESTEROL RATIO.THIS FACTOR VARIES BY MEASURED TRIGLYCERIDE AND NON-HDLCHOLESTEROL CONCENTRATIONS WITH INCREASED CALCULATED LDL SEENIN HIGHER TRIGLYCERIDE OR LOWER NON-HDL SPECIMENS. FOR MOREINFORMATION, SEE CLIENT ANNOUNCEMENT AT [email or web address] RISK RATIO LDL/HDL (test code = 2237) 2.09 RATIO <3.22 COMPREHENSIVE METABOLIC [id number] 08:22:53* Test Item Value Reference Range Interpretation Comme nts GLUCOSE (test code = 2216) 261 MG/DL 70-99 H BUN (test code = 2207) 18 MG/DL 6-20 CREATININE (test code = 2213) 0.65 MG/DL 0.60-1.30 eGFR (2020 CKD-EPI) (test code = 71596) 122 ML/MIN/1.73 >60 CALC BUN/CREAT (test code = 2234) 28 RATIO 6-28 SODIUM (test code = 2230) 137 MEQ/L 133-146 POTASSIUM (test code = 2227) 4.9 MEQ/L 3.5-5.4 CHLORIDE (test code = 2214) 99 MEQ/L 95-107 CARBON DIOXIDE (test code = 2205) 25 MEQ/L 19-31 CALCIUM (test code = 2208) 9.5 MG/DL 8.5-10.5 PROTEIN, TOTAL (test code = 2228) 7.3 G/DL 6.1-8.3 ALBUMIN (test code = 2200) 4.0 G/DL 3.5-5.2 CALC GLOBULIN (test code = 2240) 3.3 G/DL 1.9-3.7 CALC A/G RATIO (test code = 2233) 1.2 RATIO 1.0-2.6 BILIRUBIN, TOTAL (test code = 2206) 0.3 MG/DL See_Comment [Automated me ssage] The system which generated this result transmitted reference range: <=1.2. The reference range was not used to interpret this result as normal/abnormal. ALKALINE PHOSPHATASE (test code = 2203) 93 U/L 40-112 AST (test code = 2218) 33 U/L 9-40 ALT (test code = 2219) 41 U/L 5-40 H UNLESS OTHERWISE INDICATED, ALL TESTING PERFORMED [facility] [address] [place] [address] PAPER CUP MACHINE OPERATOR: DEEP WHITAKER M.D. CLIA NUMBER [id number] [facility] [place]. [id number] HEMOGLOBIN [id number] 02:15:12* Test Item Value Reference Range Interpretation Comme nts HEMOGLOBIN A1c (test code = 20115) 8.8 % 4.2-5.6 H [employer] S [employer]IATION GUIDELINES FOR HGB A1C: PREDIABETES/INCREASED RISK . . . . . . . 5.7-6.4% DIAGNOSIS OF DIABETES . . . . . . . . . >=6.5% WITH CONFIRMATION OR APPROPRIATE SYMPTOMS NOTE: ASSAY MAY BE AFFECTED BY HEMOGLOBINOPATHIES (SICKLE CELL ANEMIA, S-C DISEASE, OTHERS) OR ARTIFICIALLY LOWERED BY DECREASED RED CELL SURVIVAL (HEMOLYTIC ANEMIAS, BLOOD LOSS, ETC.). CONSIDER ALTERNATE TESTING OR LABORATORY CONSULTATION. COMPREHENSIVE METABOLIC [id number] 00:00:00* Test Item Value Reference Range Interpretation Comme nts GLUCOSE (test code = 7) 261 MG/DL BUN (test code = 2208) 18 MG/DL CREATININE (test code = 2214) 0.65 MG/DL eGFR (2020 CKD-EPI) (test code = 19837) 122 ML/MIN/1.73 CALC BUN/CREAT (test code = 2235) 28 RATIO SODIUM (test code = 2231) 137 MEQ/L POTASSIUM (test code = 2228) 4.9 MEQ/L CHLORIDE (test code = 2215) 99 MEQ/L CARBON DIOXIDE (test code = 2206) 25 MEQ/L CALCIUM (test code = 2209) 9.5 MG/DL PROTEIN, TOTAL (test code = 2229) 7.3 G/DL ALBUMIN (test code = 2201) 4.0 G/DL CALC GLOBULIN (test code = 2240) 3.3 G/DL CALC A/G RATIO (test code = 2234) 1.2 RATIO BILIRUBIN, TOTAL (test code = 2207) 0.3 MG/DL ALKALINE PHOSPHATASE (test code = 2204) 93 U/L AST (test code = 2218) 33 U/L ALT (test code = 2219) 41 U/L Francois Vargas AustinHEMOGLOBIN [id number] 00:00:00* Test Item Value Reference Range Interpretation Comme [facility] HEMOGLOBIN A1c (test code = 24368) 8.8 % Francois Vargas AustinLIPID [id number] 00:00:00* Test Item Value Reference Range Interpretation Comme nts CHOLESTEROL (test code = 2210) 216 MG/DL TRIGLYCERIDES (test code = 2232) 83 MG/DL HDL CHOLESTEROL (test code = 2220) 64 MG/DL CALC LDL CHOL (test code = 2237) 134 MG/DL RISK RATIO LDL/HDL (test cod e = 2238) 2.09 RATIO Francois MarksCOMEmilie. METABOLIC PANEL (37993)2021-03-14 00:28:08* Test Item Value Reference Range Interpretation Comme nts NA (test code = 7512479966) 138 mmol/L 135-145 K (test code = 3382800545) 4.2 mmol/L 3.5-5.0 CL (test code = 6812212932) 106 mmol/L 98-108 CO2 TOTAL (test code = 3810908347) 25 mmol/L 23-31 AGAP (test code = 0516032770) 2-16 BUN (test code = 2877831359) 14 mg/dL 7-23 GLUCOSE (test code = 6882693084) 252 mg/dL 70-110 H CREATININE (test code = 4279172245) 0.57 mg/dL 0.50-1.04 TOTAL BILI (test code = 7448680394) 0.4 mg/dL 0.1-1.1 CALCIUM (test code = 9931909783) 9.3 mg/dL 8.6-10.6 T PROTEIN (test code = 7768491138) 7.2 g/dL 6.3-8.2 ALBUMIN (test code = 0231175521) 3.6 g/dL 3.5-5.0 ALK PHOS (test code = 5380998146) 144 U/L 34-122 H ALTv (test code = 1742-6) 55 U/L 5-35 H AST(SGOT) (test code = 7738431451) 53 U/L 13-40 H eGFR (test code = 8278156255) mL/min/1.73m2 DARON (test code = DARON) Association of Glomerular Filtration Rate (GFR) and Staging of Kidney Disease* + --+ --+ ------+| GFR (mL/min/1.73 m2) ?| With Kidney Damage ?| ?Without Kidney Damage+ --------+ --------+ +| ?>90 ?| ?Stage one ?| ? Normal ?+ ---+ ---+ -------+| ?60-89 ?| ?Stage two ?| ? Decreased GFR ? + --+ --+ ------+| ?30-59 ?| ?Stage three ?| ? Stage three ? + --+ --+ ------+| ?15-29 ?| ?Stage four ? | ? Stage four ?+ ---+ ---+ -------+| ?<15 (or dialysis) ? ?| ?Stage five ? | ? Stage five ?+ ---+ ---+ -------+ *Each stage assumes the associated GFR [...] imaging tests). Lab Interpretation (test code = 35751-1) [facility]* Test Item Value Reference Range Interpretation Comme nts LIPASE (test code = 3111708289) 191 U/L 0-220 Lab Interpretation (test cod e = 03103-2) Normal [facility] WITH [id number] 00:16:03* Test Item Value Reference Range Interpretation Comme nts WBC (test code = 6690-2) See_Comment [Automated [employer]] The system which generated this result transmitted reference range: 4.30 - 11.10 10*3/?L. The reference range was not used to interpret this result as normal/abnormal. RBC (test code = 789-8) See_Comment [Automated [employer]] The system which generated this result transmitted reference range: 3.93 - 5.25 10*6/?L. The reference range was not used to interpret this result as normal/abnormal. HGB (test code = 718-7) 11.8 g/dL 11.6-15.0 HCT (test code = 4544-3) 36.7 % 35.7-45.2 MCV (test code = 787-2) 90.8 fL 80.6-95.5 MCH (test code = 785-6) 29.2 pg 25.9-32.8 MCHC (test code = 786-4) 32.2 g/dL 31.6-35.1 RDW-SD (test code = 30070-0) 40.8 fL 39.0-49.9 RDW-CV (test code = 788-0) 12.2 % 12.0-15.5 PLT (test code = 777-3) See_Comment [Automated messa ge] The system which generated this result transmitted reference range: 166 - 358 10*3/?L. The reference range was not used to interpret this result as normal/abnormal. MPV (test code = 93272-7) 9.9 fL 9.5-12.9 NRBC/100 WBC (test code = 8749118303) See_Comment [Automated watAgame ssage] The system which generated this result transmitted reference range: 0.0 - 10.0 /100 WBCs. The reference range was not used to interpret this result as normal/abnormal. NRBC x10^3 (test code = 1292018562) <0.01 See_Comment [Automated messa ge] The system which generated this result transmitted reference range: 10*3/?L. The reference range was not used to interpret this result as normal/abnormal. GRAN MAT (NEUT) % (test code = 770-8) 72.6 % IMM GRAN % (test code = 0826015536) 0.70 % LYMPH % (test code = 736-9) 16.3 % MONO % (test code = 5905-5) 9.4 % EOS % (test code = 713-8) 0.6 % BASO % (test code = 706-2) 0.4 % GRAN MAT x10^3(ANC) (test code = 9039166858) 7.38 10*3/uL 1.88-7.09 H IMM GRAN x10^3 (test code = 5505942021) 0.07 10*3/uL 0.00-0.06 H LYMPH x10^3 (test code = 731-0) 1.65 10*3/uL 1.32-3.29 MONO x10^3 (test code = 742-7) 0.95 10*3/uL 0.33-0.92 H EOS x10^3 (test code = 711-2) 0.06 10*3/uL 0.03-0.39 BASO x10^3 (test code = 704-7) 0.04 10*3/uL 0.01-0.07 Lab Interpretation (test code = 43893-2) [facility]normal [facility]PO[facility] [id number] 21:13:00* Test Item Value Reference Range Interpretation Comme nts POCT PREG (test code = 1605) negative On board controls acceptable with C Line (test code = 3574) present POCT PREG LOT # (test code = 3575) [id number] POCT PREG TEST DATE ( test code = 3576) 05/15/2022 Lab Interpretation (test cod e = 90438-0) Normal [facility] [id number] 00:00:00* Test Item Value Reference Range Interpretation Comme nts HEMOGLOBIN A1c (test code = 43385) 10.8 % Francois Vargas EtxvqfSQBG-XrN-2 (COVID-19) by RT-PCR (HIGH RISK)2020-04-14 00:00:00* Test Item Value Reference Range Interpretation Comme nts SARS-CoV-2 INTERPRETATION (test code = 89552) PRESUMPTIVE POSITIVE SOURCE (test code = 32103) NOT SPECIFIED Francois Alicia EsunvzESGZ-HlF-4 (COVID-19) by RT-PCR (HIGH RISK)2020-03-30 00:00:00* Test Item Value Reference Range Interpretation Comme nts SARS-CoV-2 INTERPRETATION (t est code = 50083) NEGATIVE SOURCE (test code = 40788) NOT SPECIFIED Francois MarksCULTURE, [id number] 00:00:00* Test Item Value Reference Range Interpretation Comme nts CULTURE, URINE (test code = 83248) SPECIMEN NUMBER: [id number] Francois Alicia AustinGC AND CHLAMYDIA, AMPLIFIED, [id number] 00:00:00* Test Item Value Reference Range Interpretation Comme nts GONORRHEA, TMA (test code = 24567) NEGATIVE CHLAMYDIA, TMA (test code = 04814) NEGATIVE Francois Vargas AustinHEMOGLOBIN [id number] 00:00:00* Test Item Value Reference Range Interpretation Comme nts HEMOGLOBIN A1c (test code = 88419) TEST NOT PERFORMED % Francois MarksMICROALBUMIN/CREATININE, RANDOM AND [id number] 00:00:00* Test Item Value Reference Range Interpretation Comme nts CREATININE, URINE, CONC. (te st code = 2072) 22.0 MG/DL ALBUMIN, URINE, RANDOM (test code = 91194) <0.2 MG/DL CALC ALBUMIN/CREAT, RND (jennifer t code = 94894) <9 MG/G Francois Vargas Kendrick Notes Date/Time Note Provider Source 2023-09-16 15:02:55 i/Q7l6i7sX922A4tBjnv7Fr6aR056oFZG4B Xrw4Te2XfljPXl/Knd2KHW6h8rSgj8847-9 09-15T15:02:55Associated Problem(s): Type 1 diabetes mellitus without complication (CMS/HCC) -Current regimen: Novolog 70/30-Blood sugar log reviewed:- Fastin-362- Breakfast 2hr: 88-277- Lunch 2hr: 65-479- Dinner 2hr: 76-305-S/p Diabetes Counsling, to start Lantus 15u BID and Novolog 6-7u before meals-Ophtho appointment on 09/20/23 65957-8Xcymydvlgd + Plan sdhiHA3424-47-05D61:39:26Evaluation + Plan noteTXT1.2.840.869475.1.13.589.2.7. 2.411663|[id number] for patient cwpy97279-6LqrzOHTDPVFWTCUGxzqqsvbz C-CDA narrative textUTHEPIUTHECU Health [facility] #[id number] HMUYNJZMVCWMNATC2799-27-09W59:39:26 1.2.840.374329.1.72.3.15|1.2.840.11 4350.1.13.589.2.7.2.727879_[id number] [address] [place] [address] 2023-09-16 14:42:56 U8qe1i6Ozr1OACFYkmkaJAbYPyQogTUGz3W 846YSpjHG50E61y4/nUoulEmcBK4h1473-0 09-15T14:42:56Associated Problem(s): Chlamydia trachomatis infection -Neg BLAYNE on 09/02/23 57738-0Ebujbakdrx + Plan ygwtLZ7522-75-09F63:42:56Evaluation + Plan noteTXT1.2.840.752700.1.13.589.2.7. 2.119970|557006249BSWlmhzpgho for patient gtrv23533-1EvfxREJMTRZDEJYPwjjbkkru C-CDA narrative textUTHEPHighlands-Cashiers Hospital[address] #[id number] KLTODSDSUXRUKVCY9559-83-11F50:42:56 1.2.840.374998.1.72.3.15|1.2.840.11 4350.1.13.589.2.7.2.727879_[id number] 2 [facility] 2023-09-16 14:42:31 jEeZ1Y81pKlRbLfnet1XGGJsOyHdfqlmXhm VxETa/0A2hVxwB5s1gQ0WAezDBsWH7994-7 4:42:31Associated Problem(s): Rh negative state in antepartum period -For Rhogam at 28w 54147-3Ihlvlcpdwa + Plan qeyaXX7863-12-24S52:42:31Evaluation + Plan noteTXT1.2.840.298741.1.13.589.2.7. 2.286862|055229559JLOxugwqzte for patient yiqc83986-5GwshCRPISZLUSBIZigelmsig C-CDA narrative textUTHEPIREHABILITATION HOSPITAL OF SOUTHERN NEW MEXICOealth [address] #[id number] BQUZOQFEQPCACIEZ4720-90-52K92:42:31 1.2.840.111243.1.72.3.15|1.2840.11 4350.1.13.589.2.7.2.727879_[id number] 9 [facility] 2023-09-16 14:41:41 OjmLaBQVzNsfBolAO/fiaK7l2QfrLPMGHHk nCBABB4L6CDJ/DZkHL158/0KUQw+r6388-0 09-15T14:41:41Associated Problem(s): Chronic hypertension affecting pregnancy -Current regimen: Procardia 30mg every day-Blood pressure log reviewed, blood pressures 120-150/80-90s (elevated bps noted to be prior to Procardia 30mg)-Asymptomatic-Normotensive today in clinic 28543-8Zfaysxazig + Plan kuwwSP0978-00-30T82:03:53Evaluation + Plan noteTXT1.2.840.965912.1.13.589.2.7. 2.934977|[id number] for patient zkwx53266-1AxwiWEPCXCXUZUZXhbeyyord C-CDA narrative textCritical access hospital[address] #[id number] QDJDFTPYNEXNOLUC9129-47-92G53:03:53 1.2.840.886137.1.72.3.15|1.2840.11 4350.1.13.589.2.7.2.727879_[id number] 1 [facility] 2023-09-16 14:00:00 /ufYtfd+r00QDCTvaL2qVZWsv/iyfEC8+pd Ns3VRkFRTY4FxaIhE+JI7RWmG9DjE9827-2 :00:00Addended by: MOOKIE CHAVARRIA on: 09/16/2023 04:05 PMModules accepted: Orders 25918-5Zxxyttyy JcogqaqyHZ7465-14-83O02:05:14Addend um DocumentTXT1.2.840.265524.1.13.589. 2.7.2.508297|[id number] for patient esck52867-5BysbLFPKYIGTZMFZqkpkqzym C-CDA narrative textUT[address] #[id number] JAAIJTYLXRUUHNIS4029-17-52T19:05:14 1.2.840.607078.1.72.3.15|1.2.840.11 4350.1.13.589.2.7.2.727879_[id number] 3 [facility] 2023-09-02 10:33:47 y21/DqV0BXOdE9Bn8XOhIwP5hk1JJTooslO rp4DJkfpqpyazh6gyo5hk2tJpUipn8264-1 09-01T10:33:47Associated Problem(s): Pregnancy - Dated by 10wk CRL- NIPT low risk per patient report- Anatomy [place] 46195-8Elsevnavyy + Plan ohmeGY6721-76-91H57:33:47Evaluation + Plan noteTXT1.2.840.836097.1.13.589.2.7. 2.498937|508694401NLMfzbwdrjt for patient kkft32862-6LgcvUZIWWHKLPMPQeetlypvy C-CDA narrative textUTHEPIThe [facility] at [address] #[id number] QKRJHACUDTWHANSP0700-72-98C75:33:47 1.2.840.641525.1.72.3.15|1.2.840.11 4350.1.13.589.2.7.2.727879_[id number] 3 [facility] [place] 2023-09-02 10:10:32 mvEQ9CEGSPxcwiJdnt4HAhJk7/AP94lTCvS l2YkU+J0VGuwBVpxEu7FzGf7VJh+Y0781-3 09-01T10:10:32Associated Problem(s): Chlamydia trachomatis infection - Tested pos 06/2023, s/p tx with Azithromycin- BLAYNE 09/02/23 39099-5Nvzqycvzfo + Plan etnrVI4056-36-18O00:10:32Evaluation + Plan noteTXT1.2.840.696862.1.13.589.2.7. 2.058452|859338588CUXawrgtqwu for patient bcaw63154-7BknkEAQZJNRMRRANegsugioe C-CDA narrative textUTHEPIThe [facility] #[id number] LKZBALGONSLMXBFS6154-32-12N74:10:32 1.2.840.697112.1.72.3.15|1.2.840.11 4350.1.13.589.2.7.2.727879_[id number] 0 [facility] [place] 2023-09-02 10:10:14 LT4+UpCrmOLF+8zS4OfWHavi5oFHeu0yKlA FGmoxgf6jI7yHSJDzHB7I+QbVBiwg7159-6 0:10:14Associated Problem(s): Rh negative state in antepartum period - For Rhogam at 28wks 54070-0Tkhbjmoyli + Plan cxcxYB8629-71-96G50:10:14Evaluation + Plan noteTXT1.2.840.250639.1.13.589.2.7. 2.193869|[id number] for patient oehy72344-0VteaNLGCMADBMTPYkkvwpmym C-CDA narrative textUTHEPIThe [facility] at [facility]tdjho05[facility] [place] #[id number] IIBIRMKHMKCROOMW0316-86-91O64:10:14 1.2.840.822416.1.72.3.15|1.2.840.11 4350.1.13.589.2.7.2.727879_[id number] 8 [facility] [place] 2023-09-02 10:10:05 uXTNV/dUVCJruwsZ2na7VMBvXW/nePqtiDX GSofOcGZm0sA5Y+6CoC+fomBMF9717315-9 09-01T10:10:05Associated Problem(s): Type 1 diabetes mellitus without complication (CMS/FORMER[facility]) - Diagnosed with T1DM at age 12, previously on Novolin 70/30 25u qAM and 30u qPM, Novolog 10 TID- Current regimen: Novolin 70/30 20u BID- Diagnosed with diabetic retinopathy 07/2023, has follow-up with Ophthalmology in 6 wks- Hospitalized 1 month ago after episode of loss of consciousness 2/2 hypoglycemia and Novolog discontinued- Did not have an applications administrator until 3 weeks ago; was following up with primary care clinic in [place], [place]- Patient recently received Dexcom, but has not set it up. Intermittently checking BG, AM fasting today 201. Patient counseled on need to begin checking BG regularly and recording to review at next visit. Will schedule appt with DM educator to review.- HbA1c 3/5/24: 9.2- Repeat HbA1c, TSH, EKG, echo ordered today- Referred to DM educator- [place] 65928-9Koljxlggqd + Plan plsrKD8738-25-05F29:10:05Evaluation + Plan noteTXT1.2.840.486123.1.13.589.2.7. 2.160345|[id number] for patient kpjk51473-7AntsBHSZTDEDITWCjibumdrl C-CDA narrative textUTHEPIThe [facility] at Gxndezt2645 [place] Carney #[id number] ZJZQKNPBMAOOLSFT7081-74-14Z65:10:05 1.2.840.943217.1.72.3.15|1.2.840.11 4350.1.13.589.2.7.2.727879_[id number] 4 [facility] [place] 2023-09-02 09:59:23 tcWs8Sq7jPRr5K+GLK5x62mRsRSUupCTo63 Z7AXEZEcfxn9bBPZevELB/qy5InX33021-4 09-01T09:59:23Associated Problem(s): Chronic hypertension affecting pregnancy - Diagnosed in 2022; pre- regimen Procardia 30mg daily- Current regimen: Procardia 30mg daily- BP today 161/92 > 142/92- Baseline PreE labs 06/2023: Plt 365, Cr 0.82, AST/ALT 16/52, 24hr urine protein 810- Denies PreE sx today- Patient does not regularly check blood pressure at home, but has BP cuff. Counseled on checking blood pressure twice daily and keeping a log to review at next appointment.- On ASA 81mg daily- Strict PreE precautions given 21329-8Aowojvleyb + Plan sbisDU4517-25-34E64:59:23Evaluation + Plan noteTXT1.2.840.083696.1.13.589.2.7. 2.992014|[id number] for patient ovwb06758-3AxxeVOYRUYNSKPHNcqlvpoxg C-CDA narrative textUTHEPIThe [facility] at [address] [place] Carney #[id number] AZWCMDOCBBLOESLJ9496-17-14V03:59:23 1.2.840.667485.1.72.3.15|1.2.840.11 4350.1.13.589.2.7.2.727879_[id number] 2 [facility] [place] 2023-08-15 00:00:00 7dFo/wm1yH0bA6zTiqrgFiRxG3DEBlOArGS Psn2Ndf1RYsv+qJyupjfjK/fbzqbW5242-7 02T00:00:00+ +-------- ----+| Plan Activity | Plan Date |+ + +| A1C | 2017-09-17 || hold novolog for now. Pt can administer per SS . scale provided to pt | || continue Novolin 70/30 | || oral glucose gel sent for hoypoglycemia | || informed pt to take a HS snack | |+ + +| Elevate legs when sitting. | 2017-09-17 || Low salt, low sodium diet | || Follow up in 4 weeks | |+ + +| Records reviewed. | 2017-09-24 |+ + +| Removal of nexplanon device today. | 2017-10-02 || Applied pressure bandage to left arm. Pt instructed to remove dressing in 24 | || hours. | |+ + +| UPT today - results negative | 2017-10-02 || Depo-provera injection today | || F/u in 3 months | |+ + +| Discussed healthy eating to included fresh fruits and vegetables. Daily | 2017-10-03 || exercise to maintain optimal health. | |+ + +| UPT today negative | 2017-12-20 || Depo Provera injection given | || Verbal prescription and side effects given | || The control shot, Depo-Provera, is an injection of a hormone that | || prevents . Each shot prevents for three months. | || The control shot does not prevent against sexually transmitted | || infections. Condoms should be used to prevent sexually transmitted infections. | || Irregular bleeding is the most common side effect, especially in the first 6 to | || 12 months of use. | || Women who use the control shot may have temporary bone thinning. It | || increases the longer they use it. Bone growth begins again when women stop | || using the shot. You can help protect your bones by exercising regularly and | || getting extra calcium and vitamin D, either through the food you eat or from | || vitamin supplements. | || The Depo shot does not protect you from sexually transmitted diseases. | || Condoms will protect you from sexually transmitted diseases. | || Discussed purpose and side effects of prescribed medications. | || Return to clinic in 3 months for next Depo-Provera Injection. | |+ + +| UPT neg | 2019-04-10 || sprintec prescribed x3m. SE discussed | || take as instructed. use backup contraception for the 1st 7 days of starting BC | || call office in 3m if BC working well w/o SE | || will send refills | || RTO if symptoms persist or worsen | |+ + +| viral etiology per symptoms | 2019-05-21 || Supportive measures. | || warm honey tea and salt water gargle. humidifier | || sent bromfed PRN for cough | || loratadine daily | || throat soothing lozenges advised | || Se discussed. take as prescribed | || Rest. Encourage plenty of fluids. | || Fever/pain control. | || can take ibuprofen for pain PRN | || Return for worsening symptoms like rising fever, severe throat pain or ear | || pain. | |+ + +| sent for UC as pt took azo | 2019-08-25 || pending result | || empirical treatment based on signs/symptoms | || increase water intake | || proper perineal hygiene | || wipe from front to back | || NSAIDs PRN pain | || Return to clinic if symptoms do not improve | |+ + +| test for G/C today | 2019-08-25 || awaiting results | || will tx accordingly | |+ + +| wet mount today | 2019-08-25 || pending result | || will tx accordingly | || abstain from sexual intercourse till results arrive | || increase water intake | || proper perineal hygiene advised | || wipe from front to back | || wear cotton undergarments | || f/u PRN if symptoms persist or worsen | |+ + +| Start mupirocin to sites BID as prescribed | 2019-08-25 || keep sites clean, dry, intact | || uupo-fve-ykxptxh ibuprofen PRN for pain | || continue to monitor | || RTO symptoms persist/worsen | |+ + +| patient high risk 2/2 DM, appears to be healing well but given mild purulence | 2019-09-22 || will Rx another round of abx, clindamycin TID x 10 | || continue Silvadene | || patient advised to keep moist and covered for improved healing | || RTO if sx worsen or do not improve | |+ + +| order covid-19 testing | 2020-03-29 || continue self-quarantine | || await result | || monitor for symptoms | || continue to follow local guidelines and recommendations with regarding to | || social distancing and facial covering. | || ER precaution for respiratory distress | |+ + +| Pt has been directed to discontinue home isolation following COVID-19 infection | 2020-04-20 || and may resume daily activities and/or return to work/school | || Discontinue self-quarantine instructed per CDC guidelines using a | || xhws-vibej-votealz-mjhrq-vra-hpsr-s sibl-awyidvji-qmazfenc for persons diagnosed | || with COVID-19. | || At least 10 days have passed since symptoms first appeared and | || At least 24 hours have passed since last fever without the use of | || fever-reducing medications and | || Symptoms have improved | || Pt was instructed to continue to follow local guidelines and recommendations | || with regarding to social distancing and facial covering. | || RTO if needed | |+ + +| UPT negative | 2020-04-28 |+ + +| Participate in physical activities and exercise. | 2021-02-07 || 30 of moderate aerobic exercise 5 times a week. Increase your activity as | || tolerated. | |+ + +| Recommend healthy eating with foods from a variety of food groups, appropriate | 2021-02-07 || portion sizes, and few sugary snacks/drinks. | || Well-rounded, whole foods diet focused on fresh vegetables and fruits, lean | || proteins. Avoid sugary drinks. Avoid fried, greasy foods. Portion control. | |+ + +| Continue FU with endocrinology | 2021-02-07 || Meds adjusted by endocrinology: | || decrease Aetwgnh50/30 15 units with meals and 15 units at night | |+ + +| Recommend healthy eating with foods from a variety of food groups, appropriate | 2022-01-23 || portion sizes, and few sugary snacks/drinks. | || | || Well-rounded, whole foods diet focused on fresh vegetables and fruits, lean | || proteins. Avoid sugary drinks. Avoid fried, greasy foods. Portion control. | |+ + +| Pt educated on eating a well balanced diet and incorporating at least 30 min of | 2022-10-04 || aerobic activity daily | |+ + +| MEDS: continue Procardia 30 xL and Aspirin 81 mg | 2022-10-04 || BP goal <140/90 | || Monitor blood pressure daily and log results. Bring results to next office | || visit. | || DASH diet - The DASH diet is rich in fruits, vegetables, whole grains, and | || low-fat dairy foods; includes meat, fish, poultry, nuts, and beans; and is | || limited in sugar-sweetened foods and beverages, red meat, and added fats. | || Avoid foods with high salt content such as processed foods, lunch meats, and | || canned food. | || Exercise for 30 minutes five times a week. | || Notify clinic if BP > 160/95 or < 100/60 | || Discussed purpose and side effects of prescribed medications. | || FU in 3 months | || Transfer to [facility] | |+ + +| TSH | 2022-10-04 |+ + +| increase fluid intake | 2022-10-04 || encouraged pt to increase intake of fiber rich foods | || informed pt she can try OTC benefiber or colace to assist with constipation | || RTO if no improvement | |+ + +| LABS:NIPT | 2023-06-06 || UA/UC | || Trans vaginal US | || Take daily PNV , continue Aspirin 81 mg and Procardia 30 XL | || Pt educated to consume bland diet and drink/eat foods containing brian to | || settle stomach | || RTO if symptoms worsen | || ER precautions given | || Bleeding precautions given | || Pt was transferred to [facility] for medical management per chart notes. | |+ + +| educated pt on consuming a well balanced diet and exercising at least 30 min a | 2023-06-17 || day. | |+ + +| pap smear | 2023-06-18 |+ + +| UA/URINE CULTURE | 2023-06-18 || Prescribed Augmentin BID x 7 days as this was the abx of choice from last | || urince culture and pt never picked up medications | || Drink plenty of water and stay well hydrated. | || Practice good perineal hygiene by wiping vagina from front to back. | || Wash perineal area daily with mild soap and water. | || Monitor for fever | || Discussed purpose and side effects of medication | || Follow up in 4 days if symptoms do not improve. | |+ + +| BG in clinic 30-> glucose tablets given --> 52 | 2023-06-18 || | || hold novolog for now. Pt can administer per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
--- NOTE | 2023-10-01 13:47 | RAD REPORT ---
EXAM DESCRIPTION: US - OB Limited - 10/01/2023 1:03 pm CLINICAL HISTORY: ABD CRAMPING, Pelvic pain COMPARISON: OBSTETRICAL COMPLETE dated 12/15/2012 FINDINGS: A limited examination was requested by the emergency room. A single cephalic presenting gestation is identified. Heart rate normal. Anterior placenta noted without abruption or previa. Amniotic fluid volume subjectively normal. Cervi x appears closed measuring approximately 3.5 cm. Estimated gestational age 25 weeks 4 days, FREDDY 01/10/2024.
[2023-10-01 14:02] LABS: Absolute Basophils 0.1 K/uL (0-0.5); Absolute Eosinophils 0.1 K/uL (0-0.5); Absolute Lymphocytes (CBC) 1.4 K/uL (0.7-4.9); Absolute Monocytes 1.4 K/uL (0.1-1.3); Absolute Neutrophil 16.2 K/uL (1.8-8.0); Basophils % 0.3 % (0-1.3); Eosinophils % 0.6 % (0-4.4); Hematocrit 34.5 % (36.0-45.0); Hemoglobin 11.3 g/dL (12.0-15.0); Lymphocytes % 7.3 % (15.3-44.8); MCH 28.6 pg (27.0-35.0); MCHC 32.8 g/dL (32.0-36.0); MCV 87.4 fL (80-100); MPV 8.2 fL (7.6-11.3); Monocytes % 7.2 % (3.3-12.3); Neutrophils % 84.6 % (41.7-73.7); Platelets 349 thou/uL (152-406); RBC Red Blood Cell Count 3.95 M/uL (3.86-4.86); Red Cell Distribution Width 13.3 % (12.1-15.2)
[2023-10-01 14:27] LABS: Specific Gravity 1.027 (1.005-1.030)
[2023-10-01 14:29] LABS: ALT/SGPT 21 U/L (13-56); AST/SGOT 16 U/L (15-37); Albumin 2.4 g/dL (3.4-5.0); Albumin/Globulin Ratio 0.5 (1.1-1.8); Alkaline Phosphatase 64 U/L (45-117); Anion Gap 10.7 mEq/L (5.0-15.0); BUN Blood Urea Nitrogen 13 mg/dL (7-18); Bicarbonate 24 mEq/L (21-32); Bilirubin Total 0.3 mg/dL (0.2-1.0); Globulin 5.2 g/dL (2.3-3.5); Glomerular Filtration Rate 115 ml/min (=/>90); Glucose Level 58 mg/dL (74-106); Potassium 3.7 mEq/L (3.5-5.1); Protein, Total 7.6 g/dL (6.4-8.2); Sodium Level 135 mEq/L (136-145)
[2023-10-01 14:32] LABS: Specific Gravity 1.027 (1.005-1.030); Urine Bacteria 20-50 /HPF (<20); Urine Bilirubin NEGATIVE (Negative); Urine Blood 2+ (Negative); Urine Clarity Extremely Turbid (Clear); Urine Color Yellow (Yellow); Urine Culture Reflex Order REFLEXED; Urine Glucose NEGATIVE (Negative); Urine Ketones NEGATIVE (Negative); Urine Microscopic Reflex YN ORDER UMIC; Urine Mucus 2+ /HPF (None Seen); Urine Nitrite 2+ (Negative); Urine Protein 3+ (Negative); Urine Urobilinogen Normal (Normal)
[2023-10-01 14:34] LABS: Bilirubin Direct < 0.2 mg/dL (0-0.2); Bilirubin Indirect, Calculated 0.1 mg/dL (0.2-0.8)
[2023-10-01] MEDS ORDERED: LABETALOL 20 MG/4ML SYRINGE IV ONE ×2 (15:15→16:00)
[2023-10-01] MEDS ORDERED: CEFTRIAXONE 1000 MG/VIAL ONE (16:00)
[2023-10-01] MEDS ORDERED: D10W 250 ML IV ONE (16:01)
[2023-10-01] MEDS ORDERED: Magnesium Sulfate 2gm IVPB 4 G/100 ML BAG IV ONE (16:01)
[2023-10-01] MEDS ORDERED: ONDANSETRON 4 MG/2 ML VIAL ONE (16:04)
[2023-10-01] MEDS ORDERED: FAMOTIDINE 20 MG/2 ML VIAL IV ONE (16:04)
[2023-10-01] MEDS ORDERED: ACETAMINOPHEN 325 MG TABLET ONE (17:28)
--- NOTE | 2023-10-01 18:11 | EDPHYS ---
Physician Documentation [facility] Name: Kristan Townsend Age: 33 yrs Sex: Female : 1990 Arrival Date: 10/01/2023 Time: 12:28 Bed 4 Private MD: ED Physician Abelino Salgado HPI: 09/30 15:41 This 33 yrs old Female presents to ER via Ambulatory with complaints of 24 wks rn , Abdominal Pain, Headache, Breathing Difficulty. 15:43 The patient presents with abdominal pain in the epigastric area, in the lower abdomen. rn Onset: The symptoms/episode began/occurred this morning. The symptoms do not radiate. Modifying factors: The symptoms are alleviated by nothing, the symptoms are aggravated by nothing. Severity of pain: At its worst the pain was mild in the emergency department the pain is unchanged. The patient has not experienced similar symptoms in the past. Patient is G3, P1 at 25 weeks gestation who reports abdominal pain, headache, high blood pressure and concerns for preeclampsia. Has had preeclampsia with previous . Taking nifedipine for hypertension that was started this year. Denies any leakage of fluid or contractions. No bleeding.. Historical: - Allergies: 12:37 No Known Allergies; ll1 - Home Meds: 18:06 Humulin 70/30 100 unit/mL (70-30) Sub-Q susp [Active]; Novolog 100 unit/mL Sub-Q soln hb daily [Active]; - PMHx: 12:37 Diabetes - IDDM; Hypertensive disorder; ll1 - PSHx: 12:37 None; ll1 - Immunization history:: Adult Immunizations up to date. - Infectious Disease History:: Denies. - Social history:: Smoking status: Patient denies any tobacco usage or history of. - Family history:: not pertinent. - Hospitalizations: : No recent hospitalization is reported. ROS: 15:43 Constitutional: Negative for fever, chills, and weight loss, Eyes: Negative for vision rn changes ENT: Negative for injury, pain, and discharge, Cardiovascular: Negative for chest pain, palpitations, and edema, Respiratory: Negative for shortness of breath, cough, wheezing, and pleuritic chest pain, Abdomen/GI: Positive for abdominal pain Back: Negative for injury and pain, : Negative for injury, bleeding, discharge, and swelling, MS/Extremity: Negative for injury and deformity, Skin: Negative for injury, rash, and discoloration, Neuro: Positive for headache Exam: 15:43 Constitutional: This is a well developed, well nourished patient who is awake, alert, rn and in no acute distress. Head/Face: Normocephalic, atraumatic. Eyes: Pupils equal round and reactive to light, extra-ocular motions intact. Cardiovascular: Tachycardic, regular Respiratory: No increased work of breathing, no retractions or nasal flaring. Abdomen/GI: Soft, mild epigastric tenderness, no rebound or guarding MS/ Extremity: Pulses equal, no cyanosis. Neurovascular intact. Full, normal range of motion. Equal circumference. Neuro: Awake and alert, GCS 15, oriented to person, place, time, and situation. Motor strength 5/5 in all extremities. Sensory grossly intact. Cerebellar exam normal. Vital Signs: 12:36 BP 163 / 80; Pulse 108; Resp 17; Temp 97; Pulse Ox 100% ; Weight 78.47 kg; Height 5 ft. ll1 4 in. ; Pain 8/10; 15:13 BP 178 / 91; Pulse 121; Resp 16; Pulse Ox 100% ; hb 15:45 BP 176 / 86; Pulse 124; hb 16:00 BP 163 / 90; Pulse 122; Resp 16; Pulse Ox 100% on R/A; hb 16:30 BP 144 / 78; Pulse 114; hb 16:45 BP 140 / 79; Pulse 109; hb 17:00 BP 138 / 80; Pulse 106; Resp 21; Pulse Ox 100% ; hb 17:31 BP 126 / 74; Pulse 108; Resp 21; Pulse Ox 99% on R/A; hb 18:00 BP 122 / 78; Pulse 102; Resp 17; Pulse Ox 99% on R/A; hb 12:36 Body Mass Index 29.70 (78.47 kg, 162.56 cm) ll1 12:36 Pain Scale: Adult ll1 MDM: 12:38 Patient medically screened. rn 15:40 ED course: Discussed case with [facility], accepts patient for rn prior authorization, recommends for grams loading dose of magnesium and 40 mg of labetalol IV x 1.. 15:41 ED course: I personally spent 35 minutes engaged in work directly related to the rn individual patient's care. This does not include any time spent performing procedures. The patient has been deemed critically ill because of moderate to severe preeclampsia requiring IV antihypertensives and IV magnesium with organization of transfer.. 15:43 Differential diagnosis: gastritis, gastroesophageal reflux disease, pancreatitis, rn Peptic Ulcer Disease, urinary tract infection, Preeclampsia, HELLP syndrome. Data reviewed: vital signs, nurses notes, lab test result(s), radiologic studies, ultrasound, and as a result, I will admit patient. Consideration of Admission/Observation Patient was admitted/placed on observation. Escalation of care including admission/observation considered. Care significantly affected by the following chronic conditions: Diabetes, Hypertension. Counseling: I had a detailed discussion with the patient and/or guardian regarding the historical points, exam findings, and any diagnostic results supporting the discharge/admit diagnosis, lab results, radiology results, the need for further work-up and treatment in the hospital, the need to transfer to another facility, for higher level of care, [facility] does not immediately have the required specialist. Response to treatment: the patient's symptoms have mildly improved after treatment, and as a result, I will admit patient. 09/30 12:44 Order name: Abo/rh Typing; Complete Time: 15:30 09/30 12:44 Order name: Basic Metabolic Panel; Complete Time: 14:38 09/30 12:44 Order name: CBC with Diff; Complete Time: 14:38 09/30 12:44 Order name: Test, Urine; Complete Time: 14:38 09/30 12:44 Order name: LFT's; Complete Time: 14:38 09/30 12:44 Order name: LDH; Complete Time: 14:38 09/30 12:48 Order name: Urinalysis w/ reflexes; Complete Time: 14:38 09/30 14:37 Order name: Urine Culture EDFL 09/30 16:02 Order name: Blood Culture Adult (2) rn 09/30 16:02 Order name: Lactate w/ 2H reflex if indic. rn 09/30 12:44 Order name: US OB Limited; Complete Time: 13:50 09/30 12:44 Order name: IV Saline Lock; Complete Time: 15:20 09/30 12:44 Order name: Labs collected and sent; Complete Time: 15:20 09/30 12:44 Order name: Cardiac monitoring; Complete Time: 17:18 rn Administered Medications: 15:20 Drug: Labetalol IV 10 mg IV at calculated rate once Route: IV; Rate: calculated rate; hb Site: right antecubital; 16:14 Drug: D50W IVP 25 ml IVP once; (0.5 amp) Route: IVP; Site: right antecubital; ph 17:00 Follow up: Response: No adverse reaction hb 16:14 Drug: Ondansetron IVP 4 mg IVP once; over 2 minutes Route: IVP; Site: right antecubital;ph 16:14 Drug: Rocephin IV 1 grams IV at calculated rate once; Given slow IV push per pharmacy ph instructions Route: IV; Rate: calculated rate; Site: right antecubital; 16:14 Drug: Magnesium Sulfate IVPB 4 grams IVPB once over 1 hrs Route: IVPB; Infused Over: 1 ph hrs; Site: right antecubital; 16:15 Drug: Labetalol IV 20 mg IV at calculated rate once over 2 mins Route: IV; Rate: hb calculated rate; Infused Over: 2 mins; Site: right antecubital; 16:44 Drug: Famotidine IVP 20 mg IVP once; dilute with 10 mL 0.9% NaCl; give over 2 minutes hb Route: IVP; Site: left upper arm; 16:55 Drug: Labetalol IV 20 mg IV at calculated rate once over 2 mins Route: IV; Rate: hb calculated rate; Infused Over: 2 mins; Site: left upper arm; 17:31 Drug: Labetalol IV 10 mg IV at calculated rate once Route: IV; Rate: calculated rate; hb Site: left upper arm; 17:31 Drug: Acetaminophen PO 650 mg PO once Route: PO; hb Disposition Summary: 10/01/23 15:42 Transfer Ordered Notes: Transfer Location: [facility] rn Reason: Higher level of care rn Condition: Stable rn Problem: new rn Symptoms: have improved rn Accepting Physician: (10/01/23 18:10) hb Diagnosis - Mild to moderate pre-eclampsia, second trimester rn - UTI/ Urinary tract infection, site not specified rn Forms: - Medication Reconciliation Form rn - SBAR form um rn time excluding procedures: 15:41 Critical care time: Bedside Care: 30 minutes, Consultation: 5 minutes. Total time: 35 rn minutes Signatures: Dispatcher [employer] EDAbelino Fontaine MD MD rn Hall, Patricia, RN RN ph Baxter, Heather, RN RN hb Lewis, Lynsay, RN RN ll1 Corrections: (The following items were deleted from the chart) 18:10 15:42 Dr. bob villarreal
--- NOTE | 2023-10-01 18:11 | ER ---
Nurse's Notes [facility] Name: Kristan Townsend Age: 33 yrs Sex: Female : 1990 Arrival Date: 10/01/2023 Time: 12:28 Bed 4 Private MD: Diagnosis: Mild to moderate pre-eclampsia, second trimester;UTI/ Urinary tract infection, site not specified Presentation: 09/30 12:36 Chief complaint: Patient states: Upper and lower abdominal cramping began this morning. ll1 + VO and SOB also. 24 weeks . G3, P1. Coronavirus screen: Client indicates they have traveled out of the [place] in the last 14 days. Client traveled to: [place]. Ebola Screen: Patient denies travel to an Ebola-affected area in the 21 days before illness onset. Initial Sepsis Screen: Does the patient meet any 2 criteria? HR > 90 bpm. No. Patient's initial sepsis screen is negative. Does the patient have a suspected source of infection? No. Patient's initial sepsis screen is negative. Risk Assessment: Do you want to hurt yourself or someone else? Patient reports no desire to harm self or others. Onset of symptoms was October 01, 2023. 12:36 Method Of Arrival: Ambulatory ll1 12:36 Acuity: ALEX 3 ll1 Triage Assessment: 12:39 General: Appears uncomfortable, Behavior is calm, cooperative, appropriate for age. ll1 General: Reports. Pain: Complains of pain in abdomen Pain currently is 8 out of 10 on a pain scale. Quality of pain is described as crampy. Neuro: Reports headache. GI: Reports lower abdominal pain, upper abdominal pain, cramping, nausea. Historical: - Allergies: 12:37 No Known Allergies; ll1 - Home Meds: 18:06 Humulin 70/30 100 unit/mL (70-30) Sub-Q susp [Active]; Novolog 100 unit/mL Sub-Q soln hb daily [Active]; - PMHx: 12:37 Diabetes - IDDM; Hypertensive disorder; ll1 - PSHx: 12:37 None; ll1 - Immunization history:: Adult Immunizations up to date. - Infectious Disease History:: Denies. - Social history:: Smoking status: Patient denies any tobacco usage or history of. - Family history:: not pertinent. - Hospitalizations: : No recent hospitalization is reported. Screenin:[address] [facility] ED Fall Risk Assessment (Adult) History of falling in the last 3 months, ph including since admission No falls in past 3 months (0 pts) Confusion or Disorientation No (0 pts) Intoxicated or Sedated No (0 pts) Impaired Gait No (0 pts) Mobility Assist Device Used No (0 pt) Altered Elimination No (0 pt) Score/Fall Risk Level 0 - 2 = Low Risk Oriented to surroundings, Maintained a safe environment, Hourly rounding (assess needs \T\ fall precautionary measures) done. Abuse screen: Denies threats or abuse. Denies injuries from another. Nutritional screening: No deficits noted. Tuberculosis screening: No symptoms or risk factors identified. Assessment: 14:24 General: Appears in no apparent distress. Behavior is calm, cooperative, Denies fever, ph chills. Pain: Complains of pain in abdomen Quality of pain is described as crampy. Neuro: Level of Consciousness is awake, alert, obeys commands, Oriented to person, place, time, situation. Neuro: Reports headache. Cardiovascular: Reports shortness of breath, Denies chest pain. Respiratory: Reports shortness of breath at rest Airway is patent Respiratory effort is even, unlabored, Respiratory pattern is regular, symmetrical, Denies cough. : Reports cramping, upper quadrant(s) lower quadrant(s) Denies discharge, vaginal bleeding. Derm: Skin is pink, warm \T\ dry. 15:21 Reassessment: BP 178/91, HR 120s, GLUC 50 per Dexcom, Dr. Salgado notified at bedside. hb 16:18 Reassessment: BP improving, repeat labetalol administered as ordered. Pt drinking apple hb juice. Family at bedside. 17:22 Reassessment: Dexcom 68, D10 and Mag infusion continues. Awaiting transfer to higher hb level of care. Family remains at bedside. 17:32 Reassessment: BP 126/74, pt c/o headache 8/10. Dr. Salgado notified, labetalol repeated hb and Tylenol administered as ordered. 18:00 Reassessment: Patient appears in no apparent distress at this time. Patient and/or hb family updated on plan of care and expected duration. Pain level reassessed. Patient is alert, oriented x 3, equal unlabored respirations, skin warm/dry/pink. Vital Signs: 12:36 BP 163 / 80; Pulse 108; Resp 17; Temp 97; Pulse Ox 100% ; Weight 78.47 kg; Height 5 ft. ll1 4 in. ; Pain 8/10; 15:13 BP 178 / 91; Pulse 121; Resp 16; Pulse Ox 100% ; hb 15:45 BP 176 / 86; Pulse 124; hb 16:00 BP 163 / 90; Pulse 122; Resp 16; Pulse Ox 100% on R/A; hb 16:30 BP 144 / 78; Pulse 114; hb 16:45 BP 140 / 79; Pulse 109; hb 17:00 BP 138 / 80; Pulse 106; Resp 21; Pulse Ox 100% ; hb 17:31 BP 126 / 74; Pulse 108; Resp 21; Pulse Ox 99% on R/A; hb 18:00 BP 122 / 78; Pulse 102; Resp 17; Pulse Ox 99% on R/A; hb 12:36 Body Mass Index 29.70 (78.47 kg, 162.56 cm) ll1 12:36 Pain Scale: Adult ll1 ED Course: 12:32 Patient arrived in ED. mr 12:37 Abelino Salgado MD is Attending Physician. rn 12:37 Triage completed. ll1 12:38 Arm band placed on Patient placed in an exam room, on a stretcher. ll1 13:04 US OB Limited In Process Unspecified. EDMS 13:30 Initial lab(s) drawn, by al, sent to lab. Urine collected: clean catch specimen, michelle ph colored. Inserted saline lock: 24 gauge in right antecubital area, using aseptic technique. Blood collected. 14:21 Drea Mcgowan, RN is Primary Nurse. ph 14:23 Patient has correct armband on for positive identification. Bed in low position. Call ph light in reach. Side rails up X 1. Pulse ox on. NIBP on. Door closed. Noise minimized. Warm blanket given. 14:24 No provider procedures requiring assistance completed. ph 16:40 pt accepted in transfer to [facility] by dr Jayden Craven, admin approval bd given by Gem Arguelles,pt going to ob er. 17:10 Inserted saline lock: 22 gauge in left upper arm, using aseptic technique. hb 18:08 Patient transferred, IV remains in place. hb Administered Medications: 15:20 Drug: Labetalol IV 10 mg IV at calculated rate once Route: IV; Rate: calculated rate; hb Site: right antecubital; 16:14 Drug: D50W IVP 25 ml IVP once; (0.5 amp) Route: IVP; Site: right antecubital; ph 17:00 Follow up: Response: No adverse reaction hb 16:14 Drug: Ondansetron IVP 4 mg IVP once; over 2 minutes Route: IVP; Site: right antecubital;ph 16:14 Drug: Rocephin IV 1 grams IV at calculated rate once; Given slow IV push per pharmacy ph instructions Route: IV; Rate: calculated rate; Site: right antecubital; 16:14 Drug: Magnesium Sulfate IVPB 4 grams IVPB once over 1 hrs Route: IVPB; Infused Over: 1 ph hrs; Site: right antecubital; 16:15 Drug: Labetalol IV 20 mg IV at calculated rate once over 2 mins Route: IV; Rate: hb calculated rate; Infused Over: 2 mins; Site: right antecubital; 16:44 Drug: Famotidine IVP 20 mg IVP once; dilute with 10 mL 0.9% NaCl; give over 2 minutes hb Route: IVP; Site: left upper arm; 16:55 Drug: Labetalol IV 20 mg IV at calculated rate once over 2 mins Route: IV; Rate: hb calculated rate; Infused Over: 2 mins; Site: left upper arm; 17:31 Drug: Labetalol IV 10 mg IV at calculated rate once Route: IV; Rate: calculated rate; hb Site: left upper arm; 17:31 Drug: Acetaminophen PO 650 mg PO once Route: PO; hb Medication: 14:25 VIS not applicable for this client. ph Outcome: 15:42 ER care complete, transfer ordered by . bob 18:07 Transferred by ground EMS [facility] hb 18:07 Condition: stable 18:07 Discharge instructions given to patient, Instructed on the need for transfer, Demonstrated understanding of instructions, 18:10 Patient left the ED. hb Signatures: Dispatcher [employer] EDMS Vivi Ken Mary, Reg Reg mr Abelino Salgado MD MD rn Hall, Patricia, RN RN Siobhan Eller RN RN hb Lewis, Lynsay, RN RN ll1 Corrections: (The following items were deleted from the chart) 17:16 16:13 Labetalol IV 20 mg IV at calculated rate in right antecubital over 2 mins ph hb
[2023-10-01 19:08] VITALS: BP 122/78; TEMP 97; O2SAT 99
== END 2023-10-01 18:10 | disposition short-term general hospital (02) ==
LOC: ER 12:28
DX: O14.02 Mild to moderate pre-eclampsia, second trimester (principal); O23.42 Unspecified infection of urinary tract in pregnancy, second trimester; N39.0 Urinary tract infection, site not specified; Z3A.24 24 weeks gestation of pregnancy
CPT/HCPCS: 87040; 87088; 85025; 81001; 87086; 80048; 36415; 86900; 83615; 81025; 86901; 80076; 83605; 76815; J3475; J2405; J0696